=== PATIENT | male | born 1940 | race Caucasian/White ===

== ENCOUNTER 2021-12-19 15:21 | Emergency (ER) | payer MEDICARE, SELFPAY ==
[2021-12-19 15:36] VITALS: BP 183/68; PULSE 63; RESP 20; TEMP 37.7; O2SAT 99
--- NOTE | 2021-12-19 15:53 | ED.URI ---
HPI - URI/Sore Throat General Chief Complaint: Upper Respiratory Infection Stated Complaint: Sinus Infection,Cough Time Seen by Provider: 12/19/21 15:53 Source: patient, family, RN notes reviewed and old records reviewed Mode of arrival: ambulatory Limitations: no limitations History of Present Illness HPI Narrative: 81-year-old male presents to the [facility] with complaints of cough, shortness of breath and generalized fatigue and chills since Tuesday, 4 days. states they try to get in with her primary but he was refusing. Has not taken anything for symptoms. Has a significant cardiac history. Patient appears pale, tachypneic, acutely ill. reports significant generalized weakness and increased pallor that started this morning, may be yesterday. Patient has not taken his medications today. History of bypass, stents, high cholesterol, aortic aneurysm, diabetes, hypertension, kidney disease MD elicited complaint: fever (Subjective) Related Data Home Medications Medication Instructions Recorded Confirmed atorvastatin 80 mg tablet 80 mg PO DAILY 10/16/19 10/30/21 carvedilol 12.5 mg tablet 12.5 mg PO Q12H 10/16/19 10/30/21 clopidogrel 75 mg tablet 75 mg PO DAILY 10/16/19 10/30/21 nitroglycerin 0.4 mg sublingual 0.4 mg SUBLINGUAL Q5M PRN 10/16/19 10/30/21 tablet potassium chloride 10 mEq 10 meq PO DAILY 10/16/19 10/30/21 capsule,extended release furosemide 20 mg tablet 20 mg PO DAILY tablet 10/18/19 10/30/21 Allergies Allergy/AdvReac Type Severity Reaction Status Date / Time atenolol Allergy Severe Nausea Verified 12/19/21 15:31 Contrast Media Allergy Severe HEART Uncoded 12/19/21 15:31 STOPPED Review of Systems Review of Systems: All systems reviewed & are unremarkable except as noted in HPI and below Constitutional: Constitutional: Reports as per HPI, Reports chills, Reports fatigue, Reports fever(s), Denies headache(s) and Reports weakness Eyes: Eyes: Reports as per HPI and Reports eye discharge (Tearing right eye) ENT: Reports as per HPI, Denies vertigo, Denies dizziness, Denies headache(s), Reports nasal congestion and Denies sore throat Cardiovascular: Cardiovascular: Reports no additional cardiovascular complaints, Denies chest pain, Denies syncope, Denies rapid heart rate and Denies dyspnea Respiratory: Respiratory: Reports as per HPI, Denies cough, Reports dyspnea and Denies wheezing Gastrointestinal: Gastrointestinal: Reports no additional gastrointestinal complaints, Denies abdominal pain, Denies diarrhea, Denies nausea and Denies vomiting Musculoskeletal: Musculoskeletal: Reports as per HPI, Reports myalgias and Denies numbness Integumentary/Breasts: Skin/Breast: Reports system reviewed and no additional complaints, except as docu Neurologic: Reports system reviewed and no additional complaints, except as documented, Denies vertigo, Denies dizziness, Denies syncope, Denies headache(s), Denies focal weakness and Denies numbness Psychiatric: Psychiatric: Reports no additional psychiatric complaints Allergic/Immunologic: Allergic/Immunologic: Reports no additional allergic/immunologic complaints and Denies wheezing PMFSH Past Medical History Medical History (Updated 12/19/21 @ 16:32 by Mary Ann Mckay APRN) ASHD (arteriosclerotic heart disease) Essential (primary) hypertension Glaucoma Mixed hyperlipidemia Pitting edema Type 2 diabetes mellitus without complication, without long-term current use of insulin Surgical History Surgical History (Updated 12/19/21 @ 16:25 by Mary Ann Mckay APRN) H/O heart bypass surgery S/P coronary artery stent placement Family History Family History Mother Family history of dementia Father Family history of heart disease in male family member before age 55 Social History Social History Smoking packs per day: 1 Smoking cigarettes per
[2021-12-19 16:02] LABS: Glucose Point of Care 154 mg/dl (65-105)
--- NOTE | 2021-12-19 16:06 | ECG_ITS ---
Measurements Intervals [place] Rate: 58 P: 25 ID: 145 QRS: -19 QRSD: 102 T: 72 QT: 416 QTc: 410 Interpretive Statements SINUS BRADYCARDIA WITH FREQUENT SUPRAVENTRICULAR PREMATURE COMPLEXES LOW QRS VOLTAGE IN PRECORDIAL LEADS [QRS DEFLECTION < 1.0 mV IN CHEST LEADS] NONSPECIFIC INTERVENTRICULAR CONDUCTION DELAY ST ABNORMALITY ANTEROLATERAL LEADS CONSIDER ISCHEMIA ABNORMAL ECG NO PREVIOUS ECG AVAILABLE FOR COMPARISON Electronically Signed On 12-19-2021 17:09:04 CDT by Oj Malik M.D.
== END 2021-12-19 16:08 | disposition short-term general hospital (02) ==
PROVIDERS: Emergency Provider Nurse Practitioner; PCP Internal Medicine
DX: R53.1 Weakness (principal); R06.02 Shortness of breath; R94.31 Abnormal electrocardiogram [ECG] [EKG]; I10 Essential (primary) hypertension; Z87.891 Personal history of nicotine dependence; H40.9 Unspecified glaucoma; E78.2 Mixed hyperlipidemia; E11.9 Type 2 diabetes mellitus without complications; I25.10 Atherosclerotic heart disease of native coronary artery without angina pectoris; Z95.5 Presence of coronary angioplasty implant and graft
CPT/HCPCS: 82948; 93005; 99213; G0463

== ENCOUNTER 2021-12-19 16:25 | Observation (INO) | payer MEDICARE, SELFPAY ==
[2021-12-19] VITALS (7 sets, daily range): BP systolic 149–190; BP diastolic 54–68; PULSE 54–69; RESP 16–22; TEMP 36.3–36.4; O2SAT 97–100; BMI 27.7
--- NOTE | ~2021-12-19 | XR_ITS ---
EXAMINATION: XR chest 2V DATE: 12/19/2021 16:56 INDICATION: Shortness of breath. TECHNIQUE: Frontal and lateral views of the chest were obtained on 3 radiographs. COMPARISON: Chest single view 08/22/2016, chest CT 10/11/2010 FINDINGS: There is mild atelectasis in the lower lung zones. No pleural effusion or pneumothorax. The heart size is normal. Median sternotomy wires and mediastinal surgical clips are seen, likely from p rior coronary artery bypass grafting. IMPRESSION: 1. Mild atelectasis in the lower lung zones. Reviewed, dictated and finalized at location E.
--- NOTE | 2021-12-19 16:37 | ECG_ITS ---
Measurements Intervals [place] Rate: 51 P: -10 ND: 159 QRS: -25 QRSD: 110 T: 66 QT: 410 QTc: 379 Interpretive Statements SINUS BRADYCARDIA WITH OCCASIONAL SUPRAVENTRICULAR PREMATURE COMPLEXES ST ABNORMALITY ANTEROLATERAL LEADS CONSIDER ISCHEMIA NONSPECIFIC INTRAVENTRICULAR CONDUCTION DELAY ABNORMAL ECG COMPARED TO ECG 12/19/2021 16:04:38 NO SIGNIFICANT CHANGES Electronically Signed On 12-19-2021 17:10:21 CDT by Oj Malik M.D.
[2021-12-19 16:45] LABS: Basophils Percent Auto 0.4 % (0.2-1.2); Eosinophils Absolute Auto 0.2 K/mm3 (0-0.3); Eosinophils Percent Auto 2.8 % (0-4.4); Hematocrit 37.4 % (42.0-52.0); Hemoglobin 12.3 g/dL (14.0-18.0); Immature Granulocyte Absolute 0.02 K/mm3 (0.00-0.031); Immature Granulocyte Percent A 0.3 % (0-0.5); Lymphocytes Absolute Auto 0.89 K/mm3 (0.9-3.2); Mean Corpuscular HGB Conc 32.9 g/dl (32-36); Mean Corpuscular Hemoglobin 30.6 pg (26-34); Mean Platelet Volume 11.1 fl (7.4-10.4); Monocytes Absolute Auto 0.7 K/mm3 (0.1-0.6); Monocytes Percent Auto 9.6 % (2.6-8.5); Neutrophils Absolute Auto 5.1 K/mm3 (1.3-6.7); Neutrophils Percent Auto 73.9 % (45.5-73.1); Platelet Count Result 153 k/mm3 (150-375); Red Blood Count 4.02 M/mm3 (4.6-6.20); Red Cell Distribution Width 12.4 % (11.5-14.5); White Blood Count 6.9 K/mm3 (4.5-10.0)
[2021-12-19 16:56] LABS: Alanine Aminotransferase 26 U/L (4-50); Albumin Level 3.9 g/dL (3.5-5.1); Alkaline Phosphatase 88 U/L (38-126); Anion Gap 8 mmol/L (8-16); Aspartate Amino Transferase 26 U/L (17-59); Blood Urea Nitrogen 16 mg/dL (9-20); Calcium 8.8 mg/dL (8.4-10.2); Carbon Dioxide 26 mmol/L (22-30); Chloride 106 mmol/L (98-107); Estimated CRCL calculation 38 ml/min; Estimated Glomerular Filt Rate 49; Glucose 153 mg/dL (65-110); Potassium 3.6 mmol/L (3.4-5.0); Sodium 140 mmol/L (137-145)
--- NOTE | 2021-12-19 17:12 | ED.SOB ---
HPI - SOB/Dyspnea General Chief Complaint: Shortness of Breath/Dyspnea <Anita Mack PA-C - Last Filed: 12/19/21 20:28> Stated Complaint: sob <SEVERIANO Ware Last Filed: 12/19/21 20:28> Time Seen by Provider: 12/19/21 17:00 <SEVERIANO Ware Last Filed: 12/19/21 20:28> Source: patient <SEVERIANO Ware Last Filed: 12/19/21 20:28> Mode of arrival: ambulatory <SEVERIANO Ware Last Filed: 12/19/21 20:28> Limitations: no limitations <SEVERIANO Ware Last Filed: 12/19/21 20:28> History of Present Illness HPI Narrative: This is a 81-year-old male that presents to the emergency department for shortness of breath today. Reports he was seated in his chair and started to feel short of breath. Over the last couple of days he has had cold symptoms, he does still report a mild cough. He is not COVID or influenza vaccinated. Reports left lower extremity edema which is chronic for him. His yarn weight and strength tester is Dr. Roberts. Denies chest pain. <Anita Mack PA-C - Last Filed: 12/19/21 20:28> Related Data Home Medications: Home Medications Medication Instructions Recorded Confirmed atorvastatin 80 mg tablet 80 mg PO DAILY 10/16/19 12/19/21 carvedilol 12.5 mg tablet 12.5 mg PO Q12H 10/16/19 12/19/21 clopidogrel 75 mg tablet 75 mg PO DAILY 10/16/19 12/19/21 nitroglycerin 0.4 mg sublingual 0.4 mg SUBLINGUAL Q5M PRN 10/16/19 12/19/21 tablet potassium chloride 10 mEq 10 meq PO DAILY 10/16/19 12/19/21 capsule,extended release furosemide 20 mg tablet 20 mg PO DAILY tablet 10/18/19 12/19/21 <SEVERIANO Ware Last Filed: 12/19/21 20:28> Allergies/Adverse Reactions: Allergies Allergy/AdvReac Type Severity Reaction Status Date / Time atenolol Allergy Severe Nausea Verified 12/19/21 16:36 Contrast Media Allergy Severe HEART Uncoded 12/19/21 16:36 STOPPED <Anita Mack PA-C - Last Filed: 12/19/21 20:28> Review of Systems Review of Systems: CONSTITUTIONAL: Denies fever ENT: Reports congestion, sore throat CARDIOVASCULAR: Denies chest pain RESPIRATORY: Reports cough and dyspnea. <Anita Mack PA-C - Last Filed: 12/19/21 20:28> All systems reviewed & are unremarkable except as noted in HPI and below <Anita Mack PA-C - Last Filed: 12/19/21 20:28> PMFSH Past Medical History Medical History: Medical History (Updated 12/19/21 @ 20:18 by Anita Mack PA-C) ASHD (arteriosclerotic heart disease) Essential (primary) hypertension Glaucoma Mixed hyperlipidemia Pitting edema Type 2 diabetes mellitus without complication, without long-term current use of insulin <Anita Mack PA-C - Last Filed: 12/19/21 20:28> Surgical History Surgical History: Surgical History (Updated 12/19/21 @ 16:25 by Mary Ann Mckay APRN) H/O heart bypass surgery S/P coronary artery stent placement <Anita Mack PA-C - Last Filed: 12/19/21 20:28> Family History Family History: Family History Mother Family history of dementia Father Family history of heart disease in male family member before age 55 <Anita Mack PA-C - Last Filed: 12/19/21 20:28> Social History Social History: Social History Smoking packs per day: 1 Smoking cigarettes per day: 20.0 Years smoked: 15 Smoking pack-years: 15.00 Smoking status: Former smoker Alcohol intake: never Substance use: never <Anita Mack PA-C - Last Filed: 12/19/21 20:28> Exam Narrative: GENERAL: Well-appearing, well-nourished, and in no acute distress. HEAD: Normocephalic, atraumatic. EYES: EOMI. ENT: Nares clear, no rhinorrhea or epistaxis. Mucous membranes moist. Oropharynx without tonsillar hypertrophy exudate or other lesions. Bilateral TMs pearly [place] non-bulging NECK: Supple. No adenopathy or masses. CHEST: Clear to
[2021-12-19 17:44] LABS: INR 1.2; Prothrombin Time 14.4 Seconds (11.1-14.7)
[2021-12-19 17:45] LABS: Partial Thromboplastin Time 34.6 SECONDS (22.3-36.8)
[2021-12-19 18:12] LABS: Influenza A QL RT-PCR Negative (Negative); Influenza B QL RT-PCR Negative (Negative); SARS-CoV-2 RNA PCR Negative
[2021-12-19 18:23] LABS: NT Pro B Type Natriuretic Pept 364 pg/mL (5-100); Troponin I 0.041 ng/mL (0.000-0.034)
[2021-12-19] MEDS: hydrALAZINE HCL 20 MG/ML VIAL IV PUSH (18:50)
--- NOTE | 2021-12-19 19:12 | ECG_ITS ---
Measurements Intervals [place] Rate: 78 P: 4 [place]: 197 QRS: -37 QRSD: 108 T: 58 QT: 397 QTc: 453 Interpretive Statements SINUS RHYTHM WITH SINUS ARRHYTHMIA LEFT AXIS DEVIATION [QRS AXIS < -30] ST ABNORMALITY CONSIDER ANTEROLATERAL ISCHEMIA ABNORMAL ECG COMPARED TO ECG 12/19/2021 16:30:50 HEART RATE HAS INCREASED Electronically Signed On 12-20-2021 16:12:57 CDT by Oj Malik M.D.
[2021-12-19 19:30] LABS: Add Urine Microscopic? NO; Appearance Urine Clear (Clear); Bilirubin Urine Negative (Negative); Blood Urine Negative (Negative); Color Urine Yellow (Yellow); Glucose Urine UA Negative (Negative); Ketones Urine Negative (Negative); Leukocyte Esterase Ur Negative LEU/UL (Negative); Nitrate Urine Negative (Negative); Protein Urine Negative (Negative); Specific Grav Ur 1.008 (1.001-1.035); Urobilinogen Urine Negative mg/dL (<2.0)
[2021-12-19 19:48] LABS: Lipase 93 U/L (23-300)
--- NOTE | 2021-12-19 19:49 | PM.IMHP ---
H&P: HPI History of Present Illness Date/Time: 12/19/21 19:49 Chief Complaint: Shortness of breath. Narrative: This is a 81-year-old male with past medical history significant for coronary artery disease, hypertension, dyslipidemia, type 2 diabetes mellitus. Patient presented to the emergency room due to sudden onset of shortness of breath according to who is at bedside patient just recently had flu like symptoms patient also had some cough and generalized malaise, patient has been in his usual state of health up until this denies any chest pain, palpitations, syncope, near syncope, lightheadedness, nausea, vomiting ,diarrhea, abdominal pain, leg swelling, ankle swelling. Preliminary workup was significant for mild elevation of troponins, a chest x-ray was clear, creatinine was 1 point for, BNP was in the 300 range. An EKG did not show any acute changes. Patient has been admitted for further evaluation management and treatment.. Review of Systems Review of Systems: Sudden onset of shortness of breath Constitutional: Constitutional: Denies fatigue, Denies fever(s), Denies night sweats and Denies weakness Eyes: Eyes: Denies change in vision ENT: Denies dysphagia, Denies nasal congestion, Denies nasal discharge, Denies nasal obstruction and Denies odynophagia Cardiovascular: Cardiovascular: Denies pedal edema, Denies claudication, Denies leg edema, Denies lightheadedness, Denies radiating jaw, neck or arm pain, Denies palpitations, Denies dyspnea on exertion and Denies orthopnea Respiratory: Respiratory: Denies chest congestion, Reports cough, Denies excessive phlegm production, Denies pain on inspiration, Reports dyspnea, Denies snoring and Denies wheezing Gastrointestinal: Gastrointestinal: Denies abdominal pain, Denies dyspepsia, Denies heartburn, Denies nausea and Denies vomiting Genitourinary: Genitourinary: Denies dysuria Musculoskeletal: Musculoskeletal: Denies back pain, Denies arthralgias and Denies joint swelling Integumentary/Breasts: Skin/Breast: Denies rash Neurologic: Denies focal weakness and Denies Sensory deficit (Neuro) Psychiatric: Psychiatric: Reports no additional psychiatric complaints and Reports as per HPI Endocrine: Endocrine: Denies cold intolerance, Denies heat intolerance, Denies polyphagia, Denies polydipsia and Denies palpitations Hematologic/Lymphatic: Hematologic/Lymphatic: Reports no additional hematologic/lymphatic complaints and Reports as per HPI Allergic/Immunologic: Allergic/Immunologic: Reports no additional allergic/immunologic complaints and Reports as per HPI PENDING SALE TO [facility] Past Medical History Medical History (Updated 12/20/21 @ 00:00 by Praveen [place]) ASHD (arteriosclerotic heart disease) Essential (primary) hypertension Glaucoma Mixed hyperlipidemia Pitting edema Type 2 diabetes mellitus without complication, without long-term current use of insulin Surgical History Surgical History (Updated 12/19/21 @ 16:25 by Mary Ann Mckay APRN) H/O heart bypass surgery S/P coronary artery stent placement Family History Family History Mother Family history of dementia Father Family history of heart disease in male family member before age 55 Social History Social History Smoking packs per day: 2 Smoking cigarettes per day: 40.0 Years smoked: 30 Smoking pack-years: 60.00 Smoking status: Former smoker Tobacco type: cigarettes Second hand tobacco smoke exposure: No Alcohol intake: never Substance use: never Spiritual care concerns: No Meds Home Medications and Allergies Home Medications Medication Instructions Recorded Confirmed Type atorvastatin 80 mg tablet 80 mg PO DAILY 10/16/19 12/19/21 History carvedilol 12.5 mg tablet 12.5 mg PO Q12H 10/16/19 12/19/21 History clopidogrel 75 mg tablet 75 mg PO DAILY 10/16/19 12/19/21 History nitroglycerin 0
[2021-12-19] MEDS: ASPIRIN 81 MG CHEWABLE TABLET 324 MG PO (20:19)
--- NOTE | 2021-12-19 22:28 | PC.NURSE ---
This patient, Tony Menezes, was admitted to IMU Room 214-01at 2200. Patient/family oriented to hospital policies and general routines including ID bracelet, bed and alarms, visiting hours, pain management, procedures, bathroom and other care routines, personal items, smoking policy, room service/diet, and visiting hours. Information on how to activate the Rapid Response Team has been discussed. Patient/Family are encouraged to report perceived risks to care and to ask questions if they do not understand what they are told or what they should do.
[2021-12-19 23:02] LABS: Troponin I 0.049 ng/mL (0.000-0.034)
[2021-12-20] VITALS (9 sets, daily range): BP systolic 103–173; BP diastolic 66–85; PULSE 53–79; RESP 16–20; TEMP 36.4–36.9; O2SAT 97–99
[2021-12-20 01:04] LABS: Troponin I 0.053 ng/mL (0.000-0.034)
[2021-12-20 09:29] LABS: Basophils Percent Auto 0.5 % (0.2-1.2); Eosinophils Absolute Auto 0.2 K/mm3 (0-0.3); Eosinophils Percent Auto 2.7 % (0-4.4); Hematocrit 38.9 % (42.0-52.0); Immature Granulocyte Absolute 0.02 K/mm3 (0.00-0.031); Immature Granulocyte Percent A 0.3 % (0-0.5); Lymphocytes Absolute Auto 1.02 K/mm3 (0.9-3.2); Lymphocytes Percent Auto 16.5 % (18.3-44.2); Mean Corpuscular HGB Conc 33.4 g/dl (32-36); Mean Corpuscular Hemoglobin 30.7 pg (26-34); Mean Corpuscular Volume 91.7 fl (80-100); Mean Platelet Volume 10.9 fl (7.4-10.4); Monocytes Absolute Auto 0.6 K/mm3 (0.1-0.6); Monocytes Percent Auto 10.2 % (2.6-8.5); Neutrophils Absolute Auto 4.3 K/mm3 (1.3-6.7); Neutrophils Percent Auto 69.8 % (45.5-73.1); Platelet Count Result 166 k/mm3 (150-375); Red Blood Count 4.24 M/mm3 (4.6-6.20); Red Cell Distribution Width 12.7 % (11.5-14.5); White Blood Count 6.2 K/mm3 (4.5-10.0)
[2021-12-20 09:42] LABS: Anion Gap 7 mmol/L (8-16); Blood Urea Nitrogen 18 mg/dL (9-20); Calcium 8.5 mg/dL (8.4-10.2); Carbon Dioxide 23 mmol/L (22-30); Chloride 108 mmol/L (98-107); Estimated CRCL calculation 36 ml/min; Estimated Glomerular Filt Rate 49; Glucose 126 mg/dL (65-110); Potassium 3.9 mmol/L (3.4-5.0); Sodium 138 mmol/L (137-145)
[2021-12-20] MEDS: lisinopriL 20 MG TABLET PO (10:04)
[2021-12-20] MEDS: carvediloL 12.5 MG TABLET PO (10:04)
[2021-12-20] MEDS: FUROSEMIDE 20 MG TABLET PO (10:04)
[2021-12-20] MEDS: POTASSIUM CHLORIDE 10 MEQ TABLET.ER PO (10:04)
[2021-12-20] MEDS: ISOSORBIDE MONONITRATE 30 MG TAB.ER.24H PO (10:04)
[2021-12-20] MEDS: hydroCHLOROthiazide 25 MG TABLET PO (10:04)
[2021-12-20] MEDS: ATORVASTATIN 40 MG TABLET 80 MG PO (10:05)
[2021-12-20] MEDS: ENOXAPARIN 40 MG/0.4 ML SYRINGE SUB-Q (10:06)
[2021-12-20] MEDS: CLOPIDOGREL BISULFATE 75 MG TABLET PO (10:06)
--- NOTE | 2021-12-20 12:44 | PM.CNCAR ---
Assessment and Plan Assessment and plan (1) Chest pain: Qualifiers: Chest pain type: unspecified Qualified Code(s): R07.9 - Chest pain, unspecified Code(s): R07.9 - Chest pain, unspecified Status: Acute Assessment and Plan: Resolved. Albeit mild somewhat concerning for angina per patient description. Patient has extensive history placing the high risk complications having had remote CABG, intervention to prior vein graft, [place] PTCA and stent implantation on multiple occasions. I reviewed notes from his cattle dehorner from [facility] and his extensive history. We discussed with at length and my concern given his complicated and extensive cardiac history that further evaluation is warranted this hospitalization. Patient was quick to point out he would not agree to any evaluations here. I informed at a minimum he should undergo noninvasive ischemic testing or if escalation in his symptoms invasive angiography. I agreed that transfer to [facility] was very reasonable considering his complicated history and well established cardiovascular care with Dr. Roberts. He also declined transfer this episode of care to [facility]. I advised he should undergo testing here or be transferred to [facility] for further evaluation in that he did not advised he was discharged home or that he left against medical advice. Patient verbalized understanding but states he would be leaving against medical advice. I emphasized my concerns in this regard and increased risk for myocardial infarction, arrhythmia, and or . I also expressed my displeasure with significant elevation in his blood pressure and that this should be controlled further prior to discharge. Patient verbalized understanding of my concerns, appreciated my position and acknowledged the risks he was taking on his own accord and that I disagreed with him. Explained my concern with regards elevated troponin concerning for persistent ischemia although possibly related uncontrolled hypertension and underlying renal disease and myocardial strain coupled with underlying CAD. Given his extensive cardiovascular history, I stated it was not reasonable to conclude simply demand ischemia related to uncontrolled hypertension and that further evaluation for myocardial ischemia is advised. He respectively declined stating he would call his who accompanied him up and he would be going home this afternoon. I advised him to contact his cattle dehorner immediately and discussed the situation of his decision and recommendation for further workup. Continue current medical therapy. (2) Elevated troponin: Code(s): R77.8 - Other specified abnormalities of plasma proteins Status: Acute Assessment and Plan: As above. Fairly flat curve which may be consistent with type 2 infarction related to renal insufficiency, uncontrolled hypertension but cannot exclude low-grade myocardial ischemia particularly given patient's symptom complex at presentation concerning for angina. I feel further evaluation this episode of care is advised as he is at high risk but he declines and does not agree to any treatment or further evaluation at this hospital. However, he declines transfer to [facility] which is the hospital of his choosing where his physicians are located. He understands my concern in the options laid out but would not change his mind. I advised addition of aspirin 81 mg daily given the circumstances and elevated troponin. (3) CAD (coronary artery disease): Code(s): I25.10 - Atherosclerotic heart disease of [place] coronary artery without angina pectoris Status: Acute Assessment and Plan: Extensive history as noted above. Continue clopidogrel, long-acting nitrates with isosorbide mononitrate, carvedilol, atorvastatin. He was not on aspirin as an outpatient (4) Uncontrolled hypertension: Code(s): I10 - Essential (primary) hypertension Status: Acut
--- NOTE | 2021-12-20 12:47 | PC.NURSE ---
Patient stated he wants to leave against medical advice. AMA. Patient met with Dr. Loco who strongly encouraged patient to have a workup and even offered to transfer patient to [facility] and patient declined. I educated patient on the dangers of leaving AMA and patient stated his head was harder than concrete and he has made up his mind and his is on her way to pick him up. I discussed patients extensive cardiac history with him and went over possible outcomes of leaving the hospital, including . He again stated he is leaving no matter what we say.
--- NOTE | 2021-12-20 16:05 | PM.DS ---
DS: Admitting Diagnosis Discharge Date 12/20/21 Admitting Diagnosis Elevated Troponin DS: Discharge Diagnosis Discharge Diagnosis (1) Elevated troponin: Code(s): R77.8 - Other specified abnormalities of plasma proteins Status: Acute Assessment and Plan: Patient has been admitted to IMU Will trend troponins Consider cardiology consult (2) ASHD (arteriosclerotic heart disease): Code(s): I25.10 - Atherosclerotic heart disease of [place] coronary artery without angina pectoris Status: Acute Assessment and Plan: Continue home meds Continue to monitor (3) Essential (primary) hypertension: Code(s): I10 - Essential (primary) hypertension Status: Acute Assessment and Plan: Continue home meds Continue to monitor (4) Type 2 diabetes mellitus with renal manifestations: Qualifiers: 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: without marine oil terminal superintendent use Diabetes mellitus complication detail: with chronic kidney disease Chronic kidney disease stage: stage 3 (moderate) Qualified Code(s): E11.22 - Type 2 diabetes mellitus with diabetic chronic kidney disease; N18.3 - Chronic kidney disease, stage 3 (moderate) Code(s): E11.29 - Type 2 diabetes mellitus with other diabetic kidney complication Status: Acute Assessment and Plan: Holding sitagliptin Insulin sliding scale as needed (5) Mixed hyperlipidemia: Code(s): E78.2 - Mixed hyperlipidemia Status: Acute Assessment and Plan: Continue statin DS: Summary Hospital Course Hospital Course: Patient was admitted for additional workup due to elevated troponin and chest pain. Patient left against medical advice. Patient was seen and examined prior to his leaving against medical advice. Time Spent with Patient Time attestation: Total time spent providing and/or coordinating discharge services: Exam Narrative: GENERAL: NAD, cooperative HEENT: Normocephalic, atraumatic, anicteric NECK: Supple CV: Normal S1, S2, RRR, No MRG RESP: CTAB, Normal work of breathing. EXTREMITIES: Warm and well perfused, no clubbing, cyanosis, or edema. SKIN: warm, dry and intact. NEURO: CN 2-12 grossly intact. DS: Data Data Completed and Pending Labs on day of discharge: Labs from last 24 hours 12/20/21 12/20/21 12/20/21 09:20 09:20 00:31 WBC 6.2 RBC 4.24 L Hgb 13.0 L Hct 38.9 L MCV 91.7 MCH 30.7 MCHC 33.4 RDW 12.7 Plt Count 166 MPV 10.9 H Immature Gran % (Auto) 0.3 Neut % (Auto) 69.8 Lymph % (Auto) 16.5 L [place] % (Auto) 10.2 H Eos % (Auto) 2.7 Baso % (Auto) 0.5 Lymph # (Auto) 1.02 [place] # (Auto) 0.6 Eos # (Auto) 0.2 Baso # (Auto) 0.0 Abs Immat Gran (auto) 0.02 Absolute Neuts (auto) 4.3 Absolute Nucleated RBC 0.0 Nucleated RBC % 0.0 PT INR APTT D-Dimer Sodium 138 Potassium 3.9 Chloride 108 H Carbon Dioxide 23 Anion Gap 7 L BUN 18 Creatinine 1.40 H Estim Creat Clear Calc 36 Estimated GFR 49 L Glucose 126 H Calcium 8.5 Total Bilirubin AST ALT Alkaline Phosphatase Troponin I 0.053 H* NT-Pro-B Natriuret Pep Total Protein Albumin Lipase Urine Color Urine Appearance Urine pH Ur Specific [place] Urine Protein Urine Glucose (UA) Urine Ketones Ur Blood (Man) Urine Nitrate Urine Bilirubin Urine Urobilinogen Leukocyte Esterase Rfl Influenza A (RT-PCR) Influenza B (RT-PCR) SARS-CoV-2 RNA (RT-PCR) 12/19/21 12/19/21 12/19/21 22:01 19:21 17:25 WBC RBC Hgb Hct MCV MCH MCHC RDW Plt Count MPV Immature Gran % (Auto) Neut % (Auto) Lymph % (Auto) [place] % (Auto) Eos % (Auto) Baso % (Auto) Lymph # (Auto) [place] # (Auto) Eos # (Auto) Baso # (Auto) Abs Immat Gran (auto) Absolute Neuts (auto) Absolute Nucleated RBC
== END 2021-12-20 13:15 | disposition left against medical advice (07) ==
LOC: ANHED 20:19 → ANHIMU 12-20 03:28
PROVIDERS: Physician Assistant; Admitting Provider Internal Medicine; Emergency Provider Emergency Medicine; PCP Internal Medicine; Visit Provider Family Medicine
DX: R07.9 Chest pain, unspecified (principal); R77.8 Other specified abnormalities of plasma proteins; I25.10 Atherosclerotic heart disease of native coronary artery without angina pectoris; I12.9 Hypertensive chronic kidney disease with stage 1 through stage 4 chronic kidney disease, or unspecified chronic kidney disease; I25.2 Old myocardial infarction; N18.30 Chronic kidney disease, stage 3 unspecified; E11.22 Type 2 diabetes mellitus with diabetic chronic kidney disease; E78.2 Mixed hyperlipidemia; R60.9 Edema, unspecified; R06.02 Shortness of breath; Z20.822 Contact with and (suspected) exposure to COVID-19; Z87.891 Personal history of nicotine dependence; Z79.02 Long term (current) use of antithrombotics/antiplatelets; Z79.899 Other long term (current) drug therapy; Z95.1 Presence of aortocoronary bypass graft; Z95.5 Presence of coronary angioplasty implant and graft; Z28.21 Immunization not carried out because of patient refusal
CPT/HCPCS: 36415; 71046; 80048; 80053; 81003; 82948; 83690; 83880; 84484; 85025; 85380; 85610; 85730; 87502; 93005; 96372; 96374; 99285; A9270; C9803; G0378; J0360; J1650; U0003; U0005

== ENCOUNTER 2023-01-02 09:39 | Inpatient (IN) | payer MEDICARE, SELFPAY ==
[2023-01-02] VITALS (17 sets, daily range): BP systolic 74–207; BP diastolic 55–114; PULSE 50–83; RESP 16–18; TEMP 36.2–36.9; O2SAT 97–100; BMI 23.0
--- NOTE | ~2023-01-02 | MR_ITS ---
MRI of the brain Clinical History: Lethargy Technique: Axial and sagittal T1-weighted images were acquired. These were followed by axial T2-weigh jarvis, diffusion weighted, gradient, and FLAIR images. Findings: There is no acute infarct, intracranial hemorrhage, or mass lesion. There are mild chronic white matter changes in the periventricular white matter. Ventricles and subarachnoid spaces are unremarkable. Orbits are unremarkable. Paranasal sinuses and m astoid air cells are clear. Major intracranial flow voids appear intact. Sagittal midline structures are intact. IMPRESSION: Minimal chronic microvascular ischemic change, otherwise unremarkable exam. Reviewed, dictated and finalized at location M.
--- NOTE | ~2023-01-02 | XR_ITS ---
EXAMINATION: XR chest 2V DATE: 01/02/2023 10:09 INDICATION: Weakness TECHNIQUE: AP and lateral views of the chest are obtained. COMPARISON: 12/19/2021 FINDINGS: There is mild atelectasis of the lung bases. No pleural effusion or pneumothorax. The cardi omediastinal silhouette is normal. There is moderate thoracic spondylosis. Median sternotomy wires an d mediastinal surgical clips are seen, likely from prior coronary artery bypass grafting. A coronary arteries stent is noted. IMPRESSION: 1. Mild atelectasis of the lung bases. Reviewed, dictated and finalized at location A.
--- NOTE | ~2023-01-02 | XR_ITS ---
EXAMINATION: XR chest 1V portable 01/03/2023 17:47 INDICATION: Leukocytosis PROCEDURE: AP portable chest COMPARISON: Comparison to multiple prior studies sequentially, with oldest reviewed study dated 06/19. FINDINGS: The lungs are clear. The cardiomediastinal silhouette is within normal limits. There are no pleural effusions. There is no pneumothorax suspected. There is a coronary artery stent. Status p ost median sternotomy for CABG.Left basilar atelectasis. IMPRESSION: 1: Left basilar atelectasis. Reviewed, dictated and finalized at location A.
--- NOTE | ~2023-01-02 | US_ITS ---
EXAMINATION: US carotid duplex BI DATE: 01/03/2023 11:30 INDICATION: Lethargy. Cerebral atherosclerosis. TECHNIQUE: Grayscale, color Doppler, and pulsed Doppler images of the cervical carotid arteries were obtained. The degree of vessel stenosis is placed in one of the following categories: normal, <50%, 5 0-69%, >=70% but less than near-occlusion, near-occlusion, or total occlusion. Note that percent sten osis relative to normal distal artery lumen diameter is indirectly measured from velocity measurement s as described by Ko, et al. Radiology 2003; 229:340-346. COMPARISON: None. FINDINGS: RIGHT: The right common carotid artery (CCA) peak systolic velocity (PSV) is 92 cm/s. The right internal car otid artery (ICA) PSV is 73 cm/s. The right ICA end-diastolic velocity (EDV) is 18 cm/s. The right IC A/CCA PSV ratio is 0.8. Grayscale and color Doppler images yield an estimate of <50% diameter reducti on from plaque in the ICA. The external carotid artery (ECA) PSV is 119 cm/s. There is antegrade flow in the right vertebral artery. LEFT: The left CCA PSV is 74 cm/s. The left ICA PSV is 114 cm/s. The left ICA EDV is 24 cm/s. The left ICA/ CCA PSV ratio is 1.5. Grayscale and color Doppler images yield an estimate of <50% diameter reduction from plaque in the ICA. The ECA PSV is 117 cm/s. There is antegrade flow in the left vertebral arter y. IMPRESSION: 1. <50% stenosis in the right internal carotid artery. 2. <50% stenosis in the left internal carotid artery. 3. Cardiac arrhythmia is present. Correlate with EKG. Reviewed, dictated and finalized at location A.
--- NOTE | ~2023-01-02 | CT_ITS ---
EXAMINATION: CT brain wo con INDICATION: Headache COMPARISON: 07/05/2016 TECHNIQUE: Standard unenhanced head CT. The dose-length product (DLP) was 605.33 mGy-cm. The mA was a djusted according to patient size. Iterative reconstruction technique was employed. FINDINGS: There is no acute intraparenchymal hemorrhage. No evidence of mass lesion. No evidence of a cute infarction. There is mild periventricular and subcortical hypodensity probably related to small vessel ischemic disease. There is mild prominence of the sulci and ventricles related to cerebral atr ophy. Intracranial calcified cerebral atherosclerosis is noted. There are no extra-axial collections. There is no mass effect or midline shift. Changes in the globes are likely from ocular lens surgery. There is mild mucosal thickening of the paranasal sinuses. IMPRESSION: 1. No acute intracranial abnormality. 2. Age related findings. Reviewed, dictated and finalized at location A.
--- NOTE | 2023-01-02 09:44 | ECG_ITS ---
Measurements Intervals [place] Rate: 76 P: -21 [place]: 170 QRS: -57 QRSD: 110 T: 46 QT: 408 QTc: 460 Interpretive Statements SINUS RHYTHM PATTERN CONSISTENT WITH PULMONARY DISEASE LEFT ANTERIOR FASCICULAR BLOCK [QRS AXIS <= -45, QR IN I, RS IN II] PROBABLE SEPTAL MYOCARDIAL INFARCTION , PROBABLY OLD [35 ms Q WAVE IN V1/V2] COMPARED TO ECG 12/19/2021 19:18:31 LEFT ANTERIOR FASCICULAR BLOCK NOW PRESENT Electronically Signed On 01-02-2023 19:17:47 CDT by Marisabel Cortez M.D.
[2023-01-02 09:54] LABS: Eosinophils Percent Auto 0.2 % (0-4.4); Hematocrit 43.8 % (42.0-52.0); Hemoglobin 14.7 g/dL (14.0-18.0); Immature Granulocyte Absolute 0.02 K/mm3 (0.00-0.031); Immature Granulocyte Percent A 0.4 % (0-0.5); Lymphocytes Absolute Auto 0.66 K/mm3 (0.9-3.2); Lymphocytes Percent Auto 13.5 % (18.3-44.2); Mean Corpuscular HGB Conc 33.6 g/dl (32-36); Mean Corpuscular Hemoglobin 29.7 pg (26-34); Mean Corpuscular Volume 88.5 fl (80-100); Monocytes Absolute Auto 0.7 K/mm3 (0.1-0.6); Monocytes Percent Auto 13.5 % (2.6-8.5); Neutrophils Absolute Auto 3.6 K/mm3 (1.3-6.7); Neutrophils Percent Auto 72.4 % (45.5-73.1); Platelet Count Result 147 k/mm3 (150-375); Red Blood Count 4.95 M/mm3 (4.6-6.20); Red Cell Distribution Width 13.2 % (11.5-14.5); White Blood Count 4.9 K/mm3 (4.5-10.0)
[2023-01-02 10:06] LABS: Lactic Acid Reflex 1.4 mmol/L (0.7-2.0)
[2023-01-02 10:08] LABS: Alanine Aminotransferase 35 U/L (6-50); Alkaline Phosphatase 95 U/L (38-126); Anion Gap 7 mmol/L (8-16); Aspartate Amino Transferase 45 U/L (17-59); Blood Urea Nitrogen 17 mg/dL (9-20); Calcium 8.5 mg/dL (8.4-10.2); Carbon Dioxide 24 mmol/L (22-30); Chloride 106 mmol/L (98-107); Estimated CRCL calculation 48 ml/min; Estimated Glomerular Filt Rate 58; Glucose 142 mg/dL (65-110); Potassium 4.1 mmol/L (3.4-5.0); Sodium 137 mmol/L (137-145)
[2023-01-02] MEDS: SODIUM CHLORIDE 0.9% IV 1,000 ML 999 ML IV CONT ×2 (10:17→14:03)
[2023-01-02 11:26] LABS: Appearance Urine Clear (Clear); Bacteria Urine None Seen /hpf; Bilirubin Urine Negative (Negative); Blood Urine Negative (Negative); Color Urine Yellow (Yellow); Glucose Urine UA 1+ mg/dL (Negative); Ketones Urine 1+ mg/dL (Negative); Leukocyte Esterase Ur Negative LEU/UL (Negative); Need Manual Microscopic Reviewed; Nitrate Urine Negative (Negative); Non Pathogenic Casts 0-2; Protein Urine 1+ mg/dL (Negative); RBC Urine 0-2 /hpf (0-2); Specific Grav Ur 1.023 (1.001-1.035); Squamous Epithelial Cell Urine None seen /hpf (Few); WBC Urine 0-5 /hpf; pH Urine 5.5 (5.0-9.0)
[2023-01-02 11:27] LABS: Add Urine Microscopic? YES
[2023-01-02] MEDS: hydroCHLOROthiazide 25 MG TABLET PO (12:11)
[2023-01-02] MEDS: carvediloL 12.5 MG TABLET PO (12:11)
[2023-01-02] MEDS: lisinopriL 20 MG TABLET PO (12:11)
[2023-01-02] MEDS: ISOSORBIDE MONONITRATE 30 MG TAB.ER.24H PO (12:11)
--- NOTE | 2023-01-02 15:27 | ED.WEAKNESS ---
HPI - Weakness General Chief complaint: Weakness Stated complaint: weakness, fall Time Seen by Provider: 01/02/23 09:40 History of Present Illness HPI Narrative: Patient is an 82-year-old male who presents ER with weakness and fall. Occurred twice this morning. No reports that he injured himself or struck his head. Patient is demented and cannot provide history. It is reported however that patient was diagnosed with COVID 2 weeks ago. He lives at home. He has had poor appetite and oral intake. Daughter concerned and wanted him evaluated. Related Data Home Medications Medication Instructions Recorded Confirmed atorvastatin 80 mg tablet 80 mg PO DAILY 10/16/19 01/02/23 carvedilol 12.5 mg tablet 12.5 mg PO Q12H 10/16/19 01/02/23 clopidogrel 75 mg tablet 75 mg PO DAILY 10/16/19 01/02/23 nitroglycerin 0.4 mg sublingual 0.4 mg sublingual Q5M PRN Chest 10/16/19 01/02/23 tablet (Nitrostat) Pain potassium chloride 10 mEq 10 meq PO DAILY 10/16/19 01/02/23 capsule,extended release furosemide 20 mg tablet 20 mg PO BID 10/18/19 01/02/23 isosorbide mononitrate 30 mg 30 mg PO DAILY 12/19/21 01/02/23 tablet,extended release 24 hr lisinopril 20 1 tablet PO DAILY 12/19/21 01/02/23 mg-hydrochlorothiazide 25 mg tablet sitagliptin phosphate 100 mg 50 mg PO DAILY 01/02/23 01/02/23 tablet (Januvia) Allergies Allergy/AdvReac Type Severity Reaction Status Date / Time atenolol Allergy Severe Nausea Verified 01/02/23 17:28 Iodinated Contrast Media Allergy Severe heart Verified 01/02/23 17:28 stopped Review of Systems Review of Systems: ROS unobtainable: Yes unobtainable due to mental status [facility] Past Medical History Medical History (Updated 01/02/23 @ 18:37 by Philip Jamison MD) Aortic aneurysm ASHD (arteriosclerotic heart disease) Dementia Essential (primary) hypertension Glaucoma Gout Mixed hyperlipidemia Pitting edema Tinnitus Type 2 diabetes mellitus without complication, without long-term current use of insulin Weakness Surgical History Surgical History (Updated 01/02/23 @ 17:26 by Aimee Harvey NP) H/O heart bypass surgery 6 1996 History of appendectomy S/P coronary artery stent placement (2) 2016 (1) 2013 (2) 2012 (3) 2010 (1) 2009 ( 2) 1996 Family History Family History Mother Family history of dementia Father Family history of heart disease in male family member before age 55 Hyperlipidemia Son Acute myocardial infarction Social History Social History (Updated 01/02/23 @ 17:29 by Aimee Harvey NP) Social History: He lives with his . He had 2 children and his one son . 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 HEAD: Normocephalic, atraumatic. ENT: Nares clear, no rhinorrhea or epistaxis. Mucous membranes moist. NECK: Supple. CHEST: Clear to auscultation. No respiratory distress. HEART: Regular rate and rhythm. Normal peripheral pulses. ABDOMEN: Soft, nontender, nondistended. EXTREMITIES: Normal range of motion. No edema. SKIN: Warm, dry, no rash. NEURO: Alert and oriented x2-3. PSYCH: Normal mood and affect. Course Course Emergency Course: Patient with critically elevated blood pressure. He is provided his home medications and blood pressure normalized. However he was then having dizziness when going from sitting to standing and difficulty ambulating. Orthostatic vital signs were positive and his blood pressure dropped into the 70s. He received a second liter of IV
--- NOTE | 2023-01-02 15:50 | PM.IMHP ---
H&P: HPI History of Present Illness Date/Time: 01/02/23 15:50 Chief Complaint: Fall Narrative: This is an 82-year-old male patient who resides with his . Both he and his had suffered from COVID over the last week and a half. The patient has been very weak and has been falling. He has had a poor oral intake. He denies any shortness of breath. The daughter is at the bedside answering questions as the patient's sugar hard of hearing. The daughter stated that the patient fell ground level because he was weak. She feels that her mother cannot take care of him at home at this point because he is too weak to care for self. He has had poor oral intake. He denies wheezing sense of smell or taste. He denies any focal weakness. He has been very fatigued. He denies any fever chills. He denies any cough or shortness of breath. The patient is just sleep being most of the time. Initially his highest blood pressure here was 201/114. The patient was given his routine home medications and his blood pressure dropped to 74/58. Patient was given IV fluids and now is blood pressure is 108/65. The patient was given IV fluids in the emergency room x3. The patient is being admitted to observation status on the date of service of 01/02/2023. Review of Systems Review of Systems: All systems reviewed & are unremarkable except as noted in HPI and below Constitutional: Constitutional: Reports as per HPI and Reports no additional constitutional complaints Eyes: Eyes: Reports as per HPI and Reports no additional eye complaints ENT: Reports system reviewed and no additional complaints, except as documented and Reports Normal hearing present Cardiovascular: Cardiovascular: Reports no additional cardiovascular complaints Respiratory: Respiratory: Reports no additional respiratory complaints and Reports no additional respiratory complaints Gastrointestinal: Gastrointestinal: Reports as per HPI and Reports no additional gastrointestinal complaints Musculoskeletal: Musculoskeletal: Reports no additional musculoskeletal complaints Integumentary/Breasts: Skin/Breast: Reports system reviewed and no additional complaints, except as docu and Reports as per HPI Neurologic: Reports system reviewed and no additional complaints, except as documented, Reports as per HPI and Reports Normal hearing present Psychiatric: Psychiatric: Reports no additional psychiatric complaints and Reports as per HPI Endocrine: Endocrine: Reports no additional endocrine complaints Hematologic/Lymphatic: Hematologic/Lymphatic: Reports no additional hematologic/lymphatic complaints Allergic/Immunologic: Allergic/Immunologic: Reports no additional allergic/immunologic complaints PMFSH Past Medical History Medical History (Updated 01/02/23 @ 18:13 by Aimee Harvey NP) Aortic aneurysm ASHD (arteriosclerotic heart disease) Dementia Essential (primary) hypertension Glaucoma Gout Mixed hyperlipidemia Pitting edema Tinnitus Type 2 diabetes mellitus without complication, without long-term current use of insulin Weakness Surgical History Surgical History (Updated 01/02/23 @ 17:26 by Aimee Harvey NP) H/O heart bypass surgery 1996 History of appendectomy S/P coronary artery stent placement (2) 2015 (1) 2012 (2) 2011 (3) 2010 (1) 2009 ( 2) 1996 Family History Family History Mother Family history of dementia Father Family history of heart disease in male family member before age 55 Hyperlipidemia Son Acute myocardial infarction Social History Social History (Updated 01/02/23 @ 17:29 by Aimee Harvey NP) Social History: He lives with his . He had 2 children and his one son . 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
--- NOTE | 2023-01-02 17:15 | ADMGEN ---
This patient, Tony Menezes, was admitted to 3 Med Surg Room 330-01. Patient/family oriented to hospital policies and general routines including ID bracelet, bed and alarms, visiting hours, pain management, procedures, bathroom and other care routines, personal items, smoking policy, room service/diet, and visiting hours. Information on how to activate the Rapid Response Team has been discussed. Patient/Family are encouraged to report perceived risks to care and to ask questions if they do not understand what they are told or what they should do.
[2023-01-02] MEDS: SODIUM CHLORIDE 0.9% IV 1,000 ML 125 ML IV CONT (18:12)
[2023-01-02 18:25] LABS: Troponin I 0.131 ng/mL (0.000-0.034)
[2023-01-02 20:46] LABS: Alveolar/Arterial O2 Gradient 39.4 mmHg; Base Excess ABG -4.7 mEq/l (+/-2.0); Fractional Inspired Oxygen 21 %; HCO3 ABG 18.1 mEq/l (22.0-26.0); Oxygen Content ABG 17.1 %vol (16.0-22.0); Oxygen Saturation ABG 96.1 % (95.0-100.0); PCO2 ABG 27.3 mmHg (35.0-45.0); PO2 ABG 77.6 mmHg (80.0-100.0); Total Hemoglobin 12.9 g/dL (12.0-18.0); pH ABG 7.439 (7.350-7.450)
[2023-01-02 20:48] LABS: Device ROOM AIR; Modified Allen's Test Pass; Site Drawn RIGHT RADIAL
[2023-01-02] MEDS: HYOSCYAMINE SULFATE 0.5 MG/ML AMPUL 0.25 MG IM (21:53)
[2023-01-02] MEDS: LIDOCAINE HCL 2% GEL UROJET 10 ML PKG MUCOUS MEM (21:54)
[2023-01-02 21:57] LABS: Glucose Point of Care 153 mg/dl (65-105)
[2023-01-03] VITALS (9 sets, daily range): BP systolic 102–186; BP diastolic 50–66; PULSE 61–87; RESP 16–20; TEMP 35.7–38.5; O2SAT 95–98; BMI 23.0
[2023-01-03 00:38] LABS: Troponin I 0.198 ng/mL (0.000-0.034)
[2023-01-03 06:47] LABS: Eosinophils Percent Auto 0.2 % (0-4.4); Hematocrit 36.5 % (42.0-52.0); Hemoglobin 11.9 g/dL (14.0-18.0); Immature Granulocyte Absolute 0.02 K/mm3 (0.00-0.031); Immature Granulocyte Percent A 0.4 % (0-0.5); Immature Platelet Fraction Pct 7.8 % (0.9-11.2); Lymphocytes Absolute Auto 0.48 K/mm3 (0.9-3.2); Mean Corpuscular HGB Conc 32.6 g/dl (32-36); Mean Corpuscular Volume 91.9 fl (80-100); Mean Platelet Volume 11.6 fl (7.4-10.4); Monocytes Absolute Auto 0.5 K/mm3 (0.1-0.6); Neutrophils Absolute Auto 3.8 K/mm3 (1.3-6.7); Neutrophils Percent Auto 79.4 % (45.5-73.1); Platelet Count Result 125 k/mm3 (150-375); Red Blood Count 3.97 M/mm3 (4.6-6.20); Red Cell Distribution Width 13.2 % (11.5-14.5); White Blood Count 4.8 K/mm3 (4.5-10.0)
[2023-01-03 06:56] LABS: Alanine Aminotransferase 28 U/L (6-50); Albumin Level 3.1 g/dL (3.5-5.1); Alkaline Phosphatase 67 U/L (38-126); Anion Gap 3 mmol/L (8-16); Aspartate Amino Transferase 30 U/L (17-59); Bilirubin,Total 0.9 mg/dL (0.2-1.3); Blood Urea Nitrogen 17 mg/dL (9-20); Calcium 7.7 mg/dL (8.4-10.2); Carbon Dioxide 23 mmol/L (22-30); Chloride 111 mmol/L (98-107); Estimated CRCL calculation 44 ml/min; Estimated Glomerular Filt Rate 58; Glucose 111 mg/dL (65-110); Magnesium 2.1 mg/dL (1.6-2.3); Potassium 3.8 mmol/L (3.4-5.0); Sodium 137 mmol/L (137-145)
[2023-01-03 07:34] LABS: Glucose Point of Care 104 mg/dl (65-105)
[2023-01-03 08:14] LABS: Hemoglobin A1C 6.5 % (<5.7)
[2023-01-03] MEDS: SODIUM CHLORIDE 0.9% IV 1,000 ML 75 ML IV CONT (08:14)
[2023-01-03 08:23] LABS: Troponin I 0.286 ng/mL (0.000-0.034)
--- NOTE | 2023-01-03 10:00 | PCPTNOTE ---
Attempted PT evaluation this date however pt was with OT. Will continue to attempt.
--- NOTE | 2023-01-03 10:02 | PM.CNCAR ---
Assessment and Plan Assessment and plan (1) CAD (coronary artery disease): Code(s): I25.10 - Atherosclerotic heart disease of [place] coronary artery without angina pectoris Status: Acute Assessment and Plan: Extensive history of coronary artery disease as detailed in the HPI. He denies any anginal symptoms. His CAD seems to be stable at this point. Continue DAPT with ASA, Plavix. Continue statin. [facility] (2) Elevated troponin: Code(s): R77.8 - Other specified abnormalities of plasma proteins Status: Acute Assessment and Plan: His troponin levels were checked on admission and were found to be elevated. Troponin trend 0.131, 0.150, 0.198, 0.268, 0.358, 0.401. He denies chest pain currently or any recent chest pain. This troponin trend likely represents demand ischemia/type II SD. He does have extensive underlying coronary disease and was quite hypertensive on admission. EKG does not have any ischemic STTW changes. At this time since he is free of any anginal symptoms there is no clinical indication for further ischemic work up. Furthermore, due to his multiple past coronary interventions and bypass operation, he would be a high risk candidate for coronary angiogram/PCI at this hospital. Echo has already been ordered by the hospitalist, will review and leave further recommendations when results are available. He [facility] (3) Weakness: Code(s): R53.1 - Weakness Status: Acute Assessment and Plan: Secondary to recent COVID infection and malnutrition/dehydration. (4) Uncontrolled hypertension: Code(s): I10 - Essential (primary) hypertension Status: Acute Assessment and Plan: Blood pressure History of Present Illness History of Present Illness Consult date/time: 01/03/23 10:02 Requesting physician: Alice Martínez MD Consult reason: Other (Coronary artery disease ) Reason For Visit: Dehydration, Orthostasis Narrative: Tony Menezes is an 82-year-old male with an extensive cardiac history including multiple myocardial infarctions status post CABG x6 (BOBBY to LAD, sequential SVG to RCA and PDA, SVG to marginal branch and SVG to diagonal branch in 1996 at [facility]), and multiple stents in 2010, 2011, 2012, 2015. This is a patient who presents to the hospital because of weakness and a fall. The patient and his recently had COVID and the patient had not had anything to eat or drink for about 4 days prior to his presentation to the hospital. He had also been very lethargic and fatigued during his illness with COVID. According to the patient's , he fell yesterday at home. She did not witness this fall but heard him hit a piece of furniture from the other room. The patient himself does not remember falling. the patient denies any chest pain currently and any recent history of chest pain. He also denies any shortness of breath, palpitations, swelling, orthopnea. Currently, he is sitting comfortably in the chair and does not have any complaints. Review of Systems Review of Systems: All systems reviewed & are unremarkable except as noted in HPI and below PMFSH Past Medical History Medical History Aortic aneurysm ASHD (arteriosclerotic heart disease) Dementia Essential (primary) hypertension Glaucoma Gout Mixed hyperlipidemia Pitting edema Tinnitus Type 2 diabetes mellitus without complication, without long-term current use of insulin Weakness Surgical History Surgical History H/O heart bypass surgery 1996 History of appendectomy S/P coronary artery stent placement (2) 2015 (1) 2012 (2) 2011 (3) 2010 (1) 2009 ( 2) 1996 Family History Fam
--- NOTE | 2023-01-03 11:03 | PCPTNOTE ---
Attempted PT evaluation, pt off the unit for testing. Will follow.
[2023-01-03 11:51] LABS: Glucose Point of Care 137 mg/dl (65-105)
[2023-01-03] MEDS: POTASSIUM CHLORIDE 10 MEQ TABLET.ER PO (11:53)
[2023-01-03] MEDS: ISOSORBIDE MONONITRATE 30 MG TAB.ER.24H PO (11:53)
[2023-01-03] MEDS: ATORVASTATIN 40 MG TABLET 80 MG PO (11:53)
[2023-01-03] MEDS: hydroCHLOROthiazide 25 MG TABLET PO (11:53)
[2023-01-03] MEDS: FUROSEMIDE 20 MG TABLET PO ×2 (11:53→16:55)
[2023-01-03] MEDS: CLOPIDOGREL BISULFATE 75 MG TABLET PO (11:53)
[2023-01-03] MEDS: carvediloL 12.5 MG TABLET PO ×2 (11:54→21:51)
[2023-01-03] MEDS: lisinopriL 20 MG TABLET PO (11:54)
[2023-01-03 12:39] LABS: Troponin I 0.401 ng/mL (0.000-0.034)
--- NOTE | 2023-01-03 12:46 | ECG_ITS ---
Measurements Intervals [place] Rate: 67 P: DC: 0 QRS: -46 QRSD: 101 T: 28 QT: 399 QTc: 422 Interpretive Statements SINUS RHYTHM WITH FREQUENT PREMATURE ATRIAL CONTRACTIONS LOW QRS VOLTAGE IN PRECORDIAL LEADS [QRS DEFLECTION < 1.0 mV IN CHEST LEADS] LEFT ANTERIOR FASCICULAR BLOCK [QRS AXIS <= -45, QR IN I, RS IN II] NONSPECIFIC T-WAVE ABNORMALITY ABNORMAL ECG COMPARED TO ECG 01/02/2023 09:46:23 ATRIAL ECTOPIC ACTIVITY IS NOW SEEN Electronically Signed On 01-04-2023 6:57:58 CDT by Ovi Petty M.D.
--- NOTE | 2023-01-03 14:28 | PCCCNOTE ---
On 01/03/23, the student, [Linn Jarquin ], provided care and completed [facility] documentation on this patient. I have reviewed the student's documentation and agree with the findings.
--- NOTE | 2023-01-03 16:03 | PM.IMPN ---
Progress Note: A&P Assessment and Plan (1) Orthostatic hypotension: Code(s): I95.1 - Orthostatic hypotension Status: Acute (2) COVID: Code(s): U07.1 - COVID-19 Status: Acute (3) Weakness: Code(s): R53.1 - Weakness Status: Acute Assessment and Plan: The patient had COVID over a week and half to 2 weeks ago. The patient has had a poor oral intake without loss of taste or smell. The patient has been sleeping quite often. He denies any shortness breath or any fever chills. He denies any chest pain. The patient has been sleeping frequently and just has no energy and has been falling. His head CT was negative with no acute intracranial abnormality. PT and OT evaluation with greatly be appreciated MRI is negative Weakness and encephalopathy likely secondary to COVID (4) Cognitive impairment: Code(s): R41.89 - Other symptoms and signs involving cognitive functions and awareness Status: Acute (5) Uncontrolled hypertension: Code(s): I10 - Essential (primary) hypertension Status: Acute (6) CAD (coronary artery disease): Code(s): I25.10 - Atherosclerotic heart disease of [place] coronary artery without angina pectoris Status: Acute Assessment and Plan: The patient has an extensive heart history with a bypass and multiple stents. Continue with atorvastatin Continue with Coreg Continue with Plavix Continue with Lasix Continue with isosorbide Continue with lisinopril Continue with nitroglycerin Cardiology consulted continue medical theraphy (7) Mixed hyperlipidemia: Code(s): E78.2 - Mixed hyperlipidemia Status: Acute Assessment and Plan: Continue with atorvastatin (8) Essential (primary) hypertension: Code(s): I10 - Essential (primary) hypertension Status: Acute Assessment and Plan: Continue with Lasix Continue with hydrochlorothiazide Continue with lisinopril He is also on isosorbide He is also on Coreg (9) Type 2 diabetes mellitus with renal manifestations: 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: without half-way use Diabetes mellitus complication detail: with chronic kidney disease Chronic kidney disease stage: stage 3 (moderate) Qualified Code(s): E11.22 - Type 2 diabetes mellitus with diabetic chronic kidney disease; N18.3 - Chronic kidney disease, stage 3 (moderate) Code(s): E11.29 - Type 2 diabetes mellitus with other diabetic kidney complication Status: Acute Assessment and Plan: Accu-Cheks AC and HS with sliding scale insulin check A1c Continue with Lidia (10) Dementia: Code(s): F03.90 - Unspecified dementia, unspecified severity, without behavioral disturbance, psychotic disturbance, mood disturbance, and anxiety Status: Acute Assessment and Plan: The patient had been on Namenda at 1 time but is no longer on Namenda. (11) Aortic aneurysm: Code(s): I71.9 - Aortic aneurysm of unspecified site, without rupture Status: Acute Assessment and Plan: According to the daughter this is being monitored on an outpatient level. Subjective Date/time seen: 01/03/23 16:03 82-year-old male patient who resides with his .? Both he and his had suffered from COVID over the last week and a half.? The patient has been very weak and has been falling.? Pt is more confused and instable when he walks, MRI shows nil acute, discussion with at bedside. recent covid infection Review of Systems Review of Systems: Weak confused and instable Objective Data Vital Signs Vital Signs: Vital Signs - 24 hr 01/02/23 17:07 01/02/23 22:57 01/02/23 22:00 Temperature 36.9 C 36.9 C 36.2 C L Pulse Rate 50 L 70 Respiratory Rate 18 16 Blood Pressure 151/55 H 131/64 Pulse Oximetry 98 99 Oxygen Delivery 01/02/23 20:00 01/03/23 06:00 01/03/23 11:54 Temperature 35.7 C L Pulse Rate 70 61 75 Respiratory Rate
[2023-01-03] MEDS: ACETAMINOPHEN 325 MG TABLET 650 MG PO (16:54)
[2023-01-03 19:05] LABS: CRP 17.7 mg/dL (<1.0)
--- NOTE | 2023-01-03 19:05 | ECG_ITS ---
Measurements Intervals [place] Rate: 87 P: 49 DC: 216 QRS: -43 QRSD: 93 T: 101 QT: 390 QTc: 472 Interpretive Statements SINUS RHYTHM WITH FIRST DEGREE AV BLOCK LEFT ANTERIOR SUPERIOR HEMIBLOCK NONSPECIFIC ST AND T-WAVE ABNORMALITY COMPARED TO ECG 01/03/2023 13:08:58 NO SIGNIFICANT DIFFERENCE Electronically Signed On 01-04-2023 7:07:24 CDT by Ovi Petty M.D.
[2023-01-03 19:14] LABS: Glucose Point of Care 271 mg/dl (65-105)
[2023-01-03 19:43] LABS: Troponin I 0.431 ng/mL (0.000-0.034)
[2023-01-03 20:59] LABS: Troponin I 0.413 ng/mL (0.000-0.034)
[2023-01-03] MEDS: SODIUM CHLORIDE 0.9% IV 250 ML 999 ML IV CONT (21:58)
[2023-01-04] VITALS (9 sets, daily range): BP systolic 138–158; BP diastolic 55–72; PULSE 72–106; RESP 14–18; TEMP 36.1–38.2; O2SAT 94–95
--- NOTE | 2023-01-04 | ECHO_ITS ---
Patient Info Name: Tony Menezes Age: 82 years : 1940 Gender: Male Ht: 69 in Wt: 155 lbs BSA: 1.85 m2 HR: 77 bpm BP: 102 / 50 mmHg Heart Rhythm: Sinus Rhythm Technical Quality: Fair Exam Date: 01/04/2023 8:19 AM Exam Location: Echo Lab Patient Status: Inpatient Admit Date: 01/02/2023 Staff Ordering Physician: Aimee Harvey NP Fur Dresser: Roselia Jose RDCS Attending Provider: Shawn Patton MD Referring Physician: Wes EVANS; Exam Type: CA echo doppler color flow Study Info Indications - lethargy Complete two-dimensional, color flow and Doppler transthoracic echocardiogram is performed. Summary 1. Technically difficult study with limited views. 2. Left ventricular chamber dimension is normal. 3. Left ventricular systolic function is normal, estimated at 50-55%. 4. There is mildly increased left ventricular wall thickness. 5. The left ventricular diastolic function is grade I diastolic dysfunction. 6. Right ventricular systolic function is normal. 7. There is trace mitral valve regurgitation. 8. There is trace tricuspid valve regurgitation. 9. The aortic root size at the sinus of Valsalva is dilated. Left Ventricle Left ventricular chamber dimension is normal. Left ventricular systolic function is normal, estimated at 50-55%. There is mildly increased left ventricular wall thickness. The left ventricular diastolic function is grade I diastolic dysfunction. Right Ventricle Right ventricular chamber dimension is normal. Right ventricular systolic function is normal. Left Atria Left atrial chamber dimension is normal. Right Atria Right atrial chamber dimension is normal. Atrial Septum Intact interatrial septum visualized by color flow imaging. Aortic Valve The aortic valve is probable trileaflet. There is no aortic valve stenosis. There is no aortic valve regurgitation. Pulmonic Valve The pulmonic valve is not well visualized. Mitral Valve There is trace mitral valve regurgitation. The mitral valve annulus is mildly calcified. Tricuspid Valve There is trace tricuspid valve regurgitation. Pericardium/Pleural The pericardium appears epicardial fat pad. Aorta The aortic root size at the sinus of Valsalva is dilated. Left Ventricular Outflow Tract Name Value Normal LVOT 2D LVOT Diameter 2.0 cm LVOT Doppler LVOT Peak Gradient 4 mmHg LVOT Mean Gradient 2 mmHg LVOT VTI 17 cm LVOT VTI/AV VTI Ratio 0.8 LVOT Stroke Volume 51 ml LVOT CO 3.7 l/min LVOT CI 2.0 l/min/m2 Pulmonic Valve Name Value Normal RVOT Doppler RVOT Peak Gradient 3 mmHg PV D
[2023-01-04] MEDS: SODIUM CHLORIDE 0.9% IV 1,000 ML 75 ML IV CONT ×2 (00:02→20:00)
[2023-01-04 07:38] LABS: Glucose Point of Care 108 mg/dl (65-105)
--- NOTE | 2023-01-04 09:20 | PM.PNCARD ---
Progress Note: A&P Assessment and Plan (1) CAD (coronary artery disease): Code(s): I25.10 - Atherosclerotic heart disease of [place] coronary artery without angina pectoris Status: Acute Assessment and Plan: Extensive history of coronary artery disease as detailed in the HPI. He denies any anginal symptoms. His CAD seems to be stable at this point. Continue DAPT with ASA, Plavix. Continue statin. [facility] (2) Elevated troponin: Code(s): R77.8 - Other specified abnormalities of plasma proteins Status: Acute Assessment and Plan: His troponin levels were checked on admission and were found to be elevated. Troponin trend 0.131, 0.150, 0.198, 0.268, 0.358, 0.401. He denies chest pain currently or any recent chest pain. This troponin trend likely represents demand ischemia/type II [place]. Echo shows normal LVSF. [facility] (3) Weakness: Code(s): R53.1 - Weakness Status: Acute Assessment and Plan: Secondary to recent COVID infection and malnutrition/dehydration. (4) Uncontrolled hypertension: Code(s): I10 - Essential (primary) hypertension Status: Acute Assessment and Plan: Blood pressure elevated on admission, improved. Subjective Date/time seen: 01/04/23 09:20 Interval history: He is feeling better this morning, more alert. Denies any chest pain or shortness of breath. Review of Systems Review of Systems: All systems reviewed & are unremarkable except as noted in HPI and below Exam Const: General: comfortable, no acute distress, alert and awake Orientation/consciousness: patient oriented x3 HENMT: Head: normal to inspection Eyes: General: appearance normal, both eyes and all related structures Pupils: Equal, round and reactive pupils present Neck: Neck: normal visual inspection, supple and no JVD Carotids: normal carotid upstroke Resp: Effort & Inspection: normal respiratory effort Auscultation: clear to auscultation bilaterally Cardio: Rate: regular rate Rhythm: regular rhythm Heart sounds: S1 normal heart sound present, S2 normal heart sound present and no murmurs GI: Auscultation: normal bowel sounds Skin: General skin exam: normal color Neuro: General: patient oriented x3 Cranial nerves: Yes Equal, round and reactive pupils present Extrem: General: normal to inspection Other: No edema Psych: Appearance: grossly normal Mental Status: mental status grossly normal Objective Data Vital Signs Vital Signs: Vital Signs - 24 hr 01/03/23 11:54 01/03/23 12:00 01/03/23 12:00 Temperature 36.8 C Pulse Rate 75 61 77 Respiratory Rate 16 Blood Pressure 186/66 H Pulse Oximetry 98 Oxygen Delivery 01/03/23 14:00 01/03/23 14:01 01/03/23 16:00 Temperature 38.5 C H Pulse Rate 67 67 Respiratory Rate 16 Blood Pressure 129/65 118/63 Pulse Oximetry 96 Oxygen Delivery 01/03/23 20:33 01/03/23 20:00 01/03/23 20:00 Temperature 36.4 C Pulse Rate 87 87 Respiratory Rate 20 Blood Pressure 102/50 L Pulse Oximetry 95 Oxygen Delivery Room Air 01/04/23 00:00 01/04/23 04:00 01/04/23 06:00 Temperature 36.6 C Pulse Rate 74 77 72 Respiratory Rate 16 Blood Pressure 158/72 H Pulse Oximetry 94 Oxygen Delivery Intake/Output Intake/Output: Intake & Output 01/01/23 01/02/23 01/03/23 01/04/23 23:59 23:59 23:59 23:59 Intake Total 1999 3209 Output Total 75 1225 650 Balance 1925 1984 - Meds/Results Medications: Active Medications Generic Name Dose Route Start Last Admin Trade Name Freq PRN Reason Stop Dose Admin Acetaminophen 650 mg 01/02/23 15:39 01/03/23 16:54 Acetaminophen 325 Mg Tablet PO 650 mg Q4H PRN Administration Mild Pain (1-3) or Fever Atorvastatin Calcium 80 mg 01/03/23 09
[2023-01-04] MEDS: ATORVASTATIN 40 MG TABLET 80 MG PO (10:10)
[2023-01-04] MEDS: FUROSEMIDE 20 MG TABLET PO ×2 (10:11→17:12)
[2023-01-04] MEDS: carvediloL 12.5 MG TABLET PO ×2 (10:11→20:03)
[2023-01-04] MEDS: ISOSORBIDE MONONITRATE 30 MG TAB.ER.24H PO (10:11)
[2023-01-04] MEDS: lisinopriL 20 MG TABLET PO (10:12)
[2023-01-04] MEDS: POTASSIUM CHLORIDE 10 MEQ TABLET.ER PO (10:12)
[2023-01-04] MEDS: CLOPIDOGREL BISULFATE 75 MG TABLET PO (10:12)
[2023-01-04 11:43] LABS: Glucose Point of Care 146 mg/dl (65-105)
--- NOTE | 2023-01-04 13:53 | PM.IMPN ---
Progress Note: A&P Assessment and Plan (1) Orthostatic hypotension: Code(s): I95.1 - Orthostatic hypotension Status: Acute Assessment and Plan: continue to monitor orthostatics PT/ OT for weakness and ambulation (2) COVID: Code(s): U07.1 - COVID-19 Status: Acute Assessment and Plan: post covid (3) Weakness: Code(s): R53.1 - Weakness Status: Acute Assessment and Plan: The patient had COVID over a week and half to 2 weeks ago. The patient has had a poor oral intake without loss of taste or smell. The patient has been sleeping quite often. He denies any shortness breath or any fever chills. He denies any chest pain. The patient has been sleeping frequently and just has no energy and has been falling. His head CT was negative with no acute intracranial abnormality. PT and OT evaluation with greatly be appreciated MRI is negative Weakness and encephalopathy likely secondary to COVID delirium panel ordered to rule out othe causes (4) Aortic aneurysm: Code(s): I71.9 - Aortic aneurysm of unspecified site, without rupture Status: Acute Assessment and Plan: According to the daughter this is being monitored on an outpatient level. (5) Dementia: Code(s): F03.90 - Unspecified dementia, unspecified severity, without behavioral disturbance, psychotic disturbance, mood disturbance, and anxiety Status: Acute Assessment and Plan: The patient had been on Namenda at 1 time but is no longer on Namenda. Delirium panel ordered (6) Cognitive impairment: Code(s): R41.89 - Other symptoms and signs involving cognitive functions and awareness Status: Acute Assessment and Plan: Delirium panel ordered not wanting to see neurology Thinks his confusion is most likely due to post covid infection (7) Uncontrolled hypertension: Code(s): I10 - Essential (primary) hypertension Status: Acute Assessment and Plan: improved (8) CAD (coronary artery disease): Code(s): I25.10 - Atherosclerotic heart disease of [place] coronary artery without angina pectoris Status: Acute Assessment and Plan: The patient has an extensive heart history with a bypass and multiple stents. Continue with atorvastatin Continue with Coreg Continue with Plavix Continue with Lasix Continue with isosorbide Continue with lisinopril Continue with nitroglycerin Cardiology consulted continue medical therapy echo - Left ventricular systolic function is normal, estimated at 50-55%. 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: Qualifiers: Diabetes mellitus rn assessment insulin use: without rn assessment use Diabetes mellitus complication detail: with chronic kidney disease Chronic kidney disease stage: stage 3 (moderate) Qualified Code(s): E11.22 - Type 2 diabetes mellitus with diabetic chronic kidney disease; N18.3 - Chronic kidney disease, stage 3 (moderate) Code(s): E11.29 - Type 2 diabetes mellitus with other diabetic kidney complication Status: Acute Assessment and Plan: Accu-Cheks AC and HS with sliding scale insulin check A1c Continue with Januvia Subjective Date/time seen: 01/04/23 13:53 82-year-old male patient who resides with his .? Both he and his had suffered from COVID over the last week and a half.? The patient has been very weak and has been falling.? Pt is more confused and instable when he walks, MRI shows nil acute, discussion with at bedside
--- NOTE | 2023-01-04 16:49 | PC.NURSE ---
Pt's mentation changing frequently throughout shift. When pt alert enough to stand, pt would arise out of bed, and this RN/SNT unable to catch pt to get lying/sitting/standing. When RN/SNT would lie pt down again and let him rest for 30 mins, mentation changes noted again.
[2023-01-04 17:03] LABS: Glucose Point of Care 115 mg/dl (65-105)
[2023-01-04 21:42] LABS: Glucose Point of Care 171 mg/dl (65-105)
[2023-01-05] VITALS (8 sets, daily range): BP systolic 113–155; BP diastolic 46–75; PULSE 56–80; RESP 16–18; TEMP 35.6–36.6; O2SAT 96–97
[2023-01-05 07:34] LABS: Hematocrit 36.9 % (42.0-52.0); Hemoglobin 12.3 g/dL (14.0-18.0); Mean Corpuscular HGB Conc 33.3 g/dl (32-36); Mean Corpuscular Hemoglobin 29.7 pg (26-34); Mean Corpuscular Volume 89.1 fl (80-100); Mean Platelet Volume 10.8 fl (7.4-10.4); Platelet Count Result 165 k/mm3 (150-375); Red Blood Count 4.14 M/mm3 (4.6-6.20); Red Cell Distribution Width 13.2 % (11.5-14.5); White Blood Count 4.1 K/mm3 (4.5-10.0)
[2023-01-05 07:42] LABS: Glucose Point of Care 94 mg/dl (65-105)
[2023-01-05 07:45] LABS: Anion Gap 4 mmol/L (8-16); Blood Urea Nitrogen 17 mg/dL (9-20); Calcium 7.7 mg/dL (8.4-10.2); Carbon Dioxide 25 mmol/L (22-30); Chloride 109 mmol/L (98-107); Estimated CRCL calculation 44 ml/min; Estimated Glomerular Filt Rate 58; Glucose 96 mg/dL (65-110); Potassium 3.5 mmol/L (3.4-5.0); Sodium 138 mmol/L (137-145)
[2023-01-05] MEDS: POTASSIUM CHLORIDE 10 MEQ TABLET.ER PO (08:30)
[2023-01-05] MEDS: carvediloL 12.5 MG TABLET PO ×2 (08:30→20:05)
[2023-01-05] MEDS: ISOSORBIDE MONONITRATE 30 MG TAB.ER.24H PO (08:30)
[2023-01-05] MEDS: FUROSEMIDE 20 MG TABLET PO ×2 (08:31→16:49)
[2023-01-05] MEDS: CLOPIDOGREL BISULFATE 75 MG TABLET PO (08:31)
[2023-01-05] MEDS: lisinopriL 20 MG TABLET PO (08:31)
[2023-01-05] MEDS: ATORVASTATIN 40 MG TABLET 80 MG PO (08:31)
[2023-01-05 10:33] LABS: Folic Acid 5.4 ng/mL (2.76->20)
[2023-01-05 11:46] LABS: Glucose Point of Care 187 mg/dl (65-105)
--- NOTE | 2023-01-05 13:19 | PM.IMPN ---
Progress Note: A&P Assessment and Plan (1) Orthostatic hypotension: Code(s): I95.1 - Orthostatic hypotension Status: Acute Assessment and Plan: continue to monitor orthostatics PT/ OT for weakness and ambulation (2) COVID: Code(s): U07.1 - COVID-19 Status: Acute Assessment and Plan: post covid (3) Weakness: Code(s): R53.1 - Weakness Status: Acute Assessment and Plan: The patient had COVID over a week and half to 2 weeks ago. The patient has had a poor oral intake without loss of taste or smell. The patient has been sleeping quite often. He denies any shortness breath or any fever chills. He denies any chest pain. The patient has been sleeping frequently and just has no energy and has been falling. His head CT was negative with no acute intracranial abnormality. PT and OT evaluation with greatly be appreciated MRI is negative Weakness and encephalopathy likely secondary to COVID delirium panel ordered to rule out othe causes (4) Aortic aneurysm: Code(s): I71.9 - Aortic aneurysm of unspecified site, without rupture Status: Acute Assessment and Plan: According to the daughter this is being monitored on an outpatient level. (5) Dementia: Code(s): F03.90 - Unspecified dementia, unspecified severity, without behavioral disturbance, psychotic disturbance, mood disturbance, and anxiety Status: Acute Assessment and Plan: The patient had been on Namenda at 1 time but is no longer on Namenda. Delirium panel ordered (6) Cognitive impairment: Code(s): R41.89 - Other symptoms and signs involving cognitive functions and awareness Status: Acute Assessment and Plan: Delirium panel ordered not wanting to see neurology Thinks his confusion is most likely due to post covid infection (7) Uncontrolled hypertension: Code(s): I10 - Essential (primary) hypertension Status: Acute Assessment and Plan: improved (8) CAD (coronary artery disease): Code(s): I25.10 - Atherosclerotic heart disease of [place] coronary artery without angina pectoris Status: Acute Assessment and Plan: The patient has an extensive heart history with a bypass and multiple stents. Continue with atorvastatin Continue with Coreg Continue with Plavix Continue with Lasix Continue with isosorbide Continue with lisinopril Continue with nitroglycerin Cardiology consulted continue medical therapy echo - Left ventricular systolic function is normal, estimated at 50-55%. 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: without terminal computer operator use Diabetes mellitus complication detail: with chronic kidney disease Chronic kidney disease stage: stage 3 (moderate) Qualified Code(s): E11.22 - Type 2 diabetes mellitus with diabetic chronic kidney disease; N18.3 - Chronic kidney disease, stage 3 (moderate) Code(s): E11.29 - Type 2 diabetes mellitus with other diabetic kidney complication Status: Acute Assessment and Plan: Accu-Cheks AC and HS with sliding scale insulin check A1c Continue with Januvia Subjective Date/time seen: 01/05/23 13:19 no new complaints no issues with swallowing Exam Const: General: cooperative, comfortable, no acute distress, well developed, alert, awake, Physically active, confusion, ill appearing, tired appearing, average body habitus and well nourished Nutritional Appearance: average body
[2023-01-05] MEDS: SODIUM CHLORIDE 0.9% IV 1,000 ML 75 ML IV CONT (14:04)
--- NOTE | 2023-01-05 14:37 | PCOTNOTE ---
Patient declined to participate in services this P.M. Patient verbalized, I'm so tired, not today .
--- NOTE | 2023-01-05 15:02 | PCPTNOTE ---
Attempted to see patient for PT, however patient refused due to wanting to rest at this time.
[2023-01-05 16:45] LABS: Glucose Point of Care 156 mg/dl (65-105)
[2023-01-05 20:12] LABS: Glucose Point of Care 111 mg/dl (65-105)
[2023-01-06] VITALS (7 sets, daily range): BP systolic 130–162; BP diastolic 56–83; PULSE 60–68; RESP 16–20; TEMP 35.7–36.6; O2SAT 97–100
[2023-01-06] MEDS: SODIUM CHLORIDE 0.9% IV 1,000 ML 75 ML IV CONT (06:20)
[2023-01-06 08:10] LABS: Glucose Point of Care 93 mg/dl (65-105)
[2023-01-06] MEDS: ATORVASTATIN 40 MG TABLET 80 MG PO (08:14)
[2023-01-06] MEDS: FUROSEMIDE 20 MG TABLET PO (08:14)
[2023-01-06] MEDS: CLOPIDOGREL BISULFATE 75 MG TABLET PO (08:14)
[2023-01-06] MEDS: ISOSORBIDE MONONITRATE 30 MG TAB.ER.24H PO (08:14)
[2023-01-06] MEDS: POTASSIUM CHLORIDE 10 MEQ TABLET.ER PO (08:14)
[2023-01-06] MEDS: carvediloL 12.5 MG TABLET PO (08:14)
[2023-01-06] MEDS: lisinopriL 20 MG TABLET PO (08:14)
--- NOTE | 2023-01-06 10:56 | PM.DS ---
DS: Admitting Diagnosis Discharge Date January 06, 2023 Admitting Diagnosis COVID, orthostasis DS: Discharge Diagnosis Discharge Diagnosis (1) Orthostatic hypotension: Code(s): I95.1 - Orthostatic hypotension Status: Acute Assessment and Plan: continue to monitor orthostatics PT/ OT for weakness and ambulation (2) COVID: Code(s): U07.1 - COVID-19 Status: Acute Assessment and Plan: post covid (3) Weakness: Code(s): R53.1 - Weakness Status: Acute Assessment and Plan: The patient had COVID over a week and half to 2 weeks ago. The patient has had a poor oral intake without loss of taste or smell. The patient has been sleeping quite often. He denies any shortness breath or any fever chills. He denies any chest pain. The patient has been sleeping frequently and just has no energy and has been falling. His head CT was negative with no acute intracranial abnormality. PT and OT evaluation with greatly be appreciated MRI is negative Weakness and encephalopathy likely secondary to COVID delirium panel ordered to rule out othe causes (4) Aortic aneurysm: Code(s): I71.9 - Aortic aneurysm of unspecified site, without rupture Status: Acute Assessment and Plan: According to the daughter this is being monitored on an outpatient level. (5) Dementia: Code(s): F03.90 - Unspecified dementia, unspecified severity, without behavioral disturbance, psychotic disturbance, mood disturbance, and anxiety Status: Acute Assessment and Plan: The patient had been on Namenda at 1 time but is no longer on Namenda. Delirium panel ordered (6) Cognitive impairment: Code(s): R41.89 - Other symptoms and signs involving cognitive functions and awareness Status: Acute Assessment and Plan: Delirium panel ordered not wanting to see neurology Thinks his confusion is most likely due to post covid infection (7) Uncontrolled hypertension: Code(s): I10 - Essential (primary) hypertension Status: Acute Assessment and Plan: improved (8) CAD (coronary artery disease): Code(s): I25.10 - Atherosclerotic heart disease of [place] coronary artery without angina pectoris Status: Acute Assessment and Plan: The patient has an extensive heart history with a bypass and multiple stents. Continue with atorvastatin Continue with Coreg Continue with Plavix Continue with Lasix Continue with isosorbide Continue with lisinopril Continue with nitroglycerin Cardiology consulted continue medical therapy echo - Left ventricular systolic function is normal, estimated at 50-55%. 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: without watermelon harvesting supervisor use Diabetes mellitus complication detail: with chronic kidney disease Chronic kidney disease stage: stage 3 (moderate) Qualified Code(s): E11.22 - Type 2 diabetes mellitus with diabetic chronic kidney disease; N18.3 - Chronic kidney disease, stage 3 (moderate) Code(s): E11.29 - Type 2 diabetes mellitus with other diabetic kidney complication Status: Acute Assessment and Plan: Accu-Cheks AC and HS with sliding scale insulin check A1c Continue with Januvia DS: Summary Hospital Course Hospital Course: Admitted for COVID, did exceptionally well conservative therapy. He can be discharged. No oxygen is going to be needed. Time Spent with Patient Time attestation: Total time
--- NOTE | 2023-01-06 11:18 | PCNFU ---
Nutrition Follow-Up Complete: Severe malnutrition related to chronic loss of appetite, covid as evidenced by weight loss -17%/8 months; intakes <75% needs >1 month; NFPE findings of muscle wasting and fat loss. Goal:Improved PO intake at least 50% meals and supplements Maintain weight during admission Pt current nutrition is Heart healthy. Ensure clear and Ensure compact BID, Ensure Enlive TID with meals Nutrition recommendation: continue with current plan of care Last recorded weight is 70.7 kg. Bowel Motility: +BM 01/06 Labs Reviewed: hgb:12.3, HCT:36.9, GFR:58 Meds Noted: lasix, HCTZ Skin: WNL Additional Notes: Pt continues on a heart healthy diet, intake remains poor. Noted multiple supplements in place. Continue to encourage po intake of meals and supplements. Monitoring intakes, weights, labs, supplement tolerance, plan of care Follow up in 3 days
[2023-01-06 11:46] LABS: Glucose Point of Care 107 mg/dl (65-105)
--- NOTE | 2023-01-06 13:35 | PCOTNOTE ---
Attempted to see Patient this afternoon. Patient laying down and his present. Patient refused to participate in services and would not perform any activities. Patient's attempted to talk to him and he stated, 'I want to rest, I need sleep, leave me alone .
[2023-01-06 13:54] LABS: EDCOVIDSCREEN Negative (Negative)
--- NOTE | 2023-01-07 14:26 | PCCCNOTE ---
Received call from Kirti at [facility] this morning to inform that pt. did not stay at facility more than a few hours before deciding to go home with family. Discharged home.
== END 2023-01-06 16:45 | DRG 281 ==
LOC: ANHED 11:37 → ANH3MEDSUR 16:14
PROVIDERS: Family Medicine; Nurse Practitioner; Admitting Provider Internal Medicine; Emergency Provider Emergency Medicine; PCP Internal Medicine; Visit Provider Chiropractor
DX: I95.1 Orthostatic hypotension (principal); I21.A1 Myocardial infarction type 2; E44.0 Moderate protein-calorie malnutrition; G93.49 Other encephalopathy; U09.9 Post COVID-19 condition, unspecified; Z20.822 Contact with and (suspected) exposure to COVID-19; I71.9 Aortic aneurysm of unspecified site, without rupture; F03.90 Unspecified dementia, unspecified severity, without behavioral disturbance, psychotic disturbance, mood disturbance, and anxiety; E11.22 Type 2 diabetes mellitus with diabetic chronic kidney disease; N18.30 Chronic kidney disease, stage 3 unspecified; E86.0 Dehydration; E78.2 Mixed hyperlipidemia; R41.89 Other symptoms and signs involving cognitive functions and awareness; I25.10 Atherosclerotic heart disease of native coronary artery without angina pectoris; I12.9 Hypertensive chronic kidney disease with stage 1 through stage 4 chronic kidney disease, or unspecified chronic kidney disease; T17.908A Unspecified foreign body in respiratory tract, part unspecified causing other injury, initial encounter; H40.9 Unspecified glaucoma; Z95.5 Presence of coronary angioplasty implant and graft; Z95.1 Presence of aortocoronary bypass graft; Z90.49 Acquired absence of other specified parts of digestive tract; Z87.891 Personal history of nicotine dependence; Z68.23 Body mass index [BMI] 23.0-23.9, adult; I25.2 Old myocardial infarction
CPT/HCPCS: 36415; 36600; 70450; 70551; 71045; 71046; 80048; 80053; 81001; 82607; 82746; 82805; 82948; 83036; 83605; 83735; 84443; 84484; 85025; 85027; 85055; 86140; 87040; 87426; 93005; 93306; 93880; 96360; 96361; 96372; 96374; 97161; 97165; 97530; 99285; A9270; C9803; G0378; J0131; J0456; J0696; J1980; J7030; J7050

== ENCOUNTER 2023-05-10 00:16 | Emergency (ER) | payer MEDICARE, SELFPAY ==
[2023-05-10] VITALS (8 sets, daily range): BP systolic 148–180; BP diastolic 52–77; PULSE 46–55; RESP 13–20; TEMP 36.1; O2SAT 96–100
--- NOTE | ~2023-05-10 | XR_ITS ---
EXAMINATION: XR chest 2V DATE: 05/10/2023 01:25 INDICATION: Chest pain. TECHNIQUE: Frontal and lateral views of the chest were obtained. COMPARISON: Chest single view 01/03/2023 FINDINGS: There are airspace opacities in the lower lung zones. Calcified left lung nodules and calci fied left hilar lymph nodes are consistent with old granulomatous disease. No pleural effusion or pne umothorax. Cardiomegaly is noted. Median sternotomy wires and mediastinal surgical clips are seen, li agnieszka from prior coronary artery bypass grafting. There are gallstones in the gallbladder. IMPRESSION: 1. Airspace opacities in the lower lung zones, consistent with atelectasis versus pneumonia. 2. Cardiomegaly. Reviewed, dictated and finalized at location A. IMPRESSION: 1. Airspace opacities in the lower lung zones, consistent with atelectasis vers us pneumonia. 2. Cardiomegaly.
--- NOTE | 2023-05-10 00:26 | ECG_ITS ---
Measurements Intervals [place] Rate: 52 P: [place]: 0 QRS: -27 QRSD: 96 T: 149 QT: 475 QTc: 442 Interpretive Statements SINUS RHYTHM WITH FIRST DEGREE AV BLOCK WITH PACS PROBABLE SEPTAL MYOCARDIAL INFARCTION , OF INDETERMINATE AGE [35 ms Q WAVE IN V1/V2] MODERATE T-WAVE ABNORMALITY, CONSIDER LATERAL ISCHEMIA [-0.1+ mV T WAVE IN I/aVL/V5/V6] COMPARED TO ECG 01/03/2023 19:51:36 SINUS BRADYCARDIA NOW PRESENT Electronically Signed On 05-10-2023 11:21:09 CDT by Marielos Rowe M.D.
[2023-05-10 00:48] LABS: Basophils Percent Auto 0.6 % (0.2-1.2); Eosinophils Absolute Auto 0.1 K/mm3 (0-0.3); Eosinophils Percent Auto 3.5 % (0-4.4); Hemoglobin 12.5 g/dL (14.0-18.0); Lymphocytes Absolute Auto 0.95 K/mm3 (0.9-3.2); Lymphocytes Percent Auto 27.9 % (18.3-44.2); Mean Corpuscular HGB Conc 32.9 g/dl (32-36); Mean Corpuscular Volume 91.1 fl (80-100); Mean Platelet Volume 12.1 fl (7.4-10.4); Monocytes Absolute Auto 0.3 K/mm3 (0.1-0.6); Monocytes Percent Auto 8.5 % (2.6-8.5); Neutrophils Percent Auto 59.5 % (45.5-73.1); Platelet Count Result 143 k/mm3 (150-375); Red Blood Count 4.17 M/mm3 (4.6-6.20); Red Cell Distribution Width 13.4 % (11.5-14.5); White Blood Count 3.4 K/mm3 (4.5-10.0)
[2023-05-10 00:59] LABS: Alanine Aminotransferase 37 U/L (6-50); Albumin Level 3.5 g/dL (3.5-5.1); Alkaline Phosphatase 98 U/L (38-126); Anion Gap 1 mmol/L (8-16); Aspartate Amino Transferase 37 U/L (17-59); Bilirubin,Total 0.3 mg/dL (0.2-1.3); Blood Urea Nitrogen 18 mg/dL (9-20); Calcium 8.6 mg/dL (8.4-10.2); Carbon Dioxide 25 mmol/L (22-30); Chloride 109 mmol/L (98-107); Estimated CRCL calculation 37 ml/min; Estimated Glomerular Filt Rate 49; Glucose 131 mg/dL (65-110); Lipase 257 U/L (23-300); Potassium 3.4 mmol/L (3.4-5.0); Sodium 135 mmol/L (137-145)
[2023-05-10 01:02] LABS: INR 1.1; Prothrombin Time 14.8 Seconds (11.1-14.7)
[2023-05-10 01:03] LABS: Partial Thromboplastin Time 30.6 SECONDS (22.3-36.8)
[2023-05-10 01:10] LABS: Troponin I 0.045 ng/mL (0.000-0.034)
--- NOTE | 2023-05-10 02:17 | ED.GENADULT ---
HPI - General Adult General Chief complaint: Chest Pain Stated complaint: chest pain Time Seen by Provider: 05/10/23 01:01 History of Present Illness HPI narrative: This is an 82-year-old male presenting ED with a chief complaint of chest discomfort. Patient says that he was watching TV last night when he developed some blurriness in his right eye. He is unsure of the exact time. No other neurologic deficits. No field vision loss. no eye pain. He then went to bed and said he felt bad. he states it was not actual chest pain but the bad feeling was located around his chest. His noticed that he was very shaky. Patient has significant cardiac history. All of his cardiac symptoms resolved by time he arrived emergency department. Related Data Home Medications Medication Instructions Recorded Confirmed atorvastatin 80 mg tablet 80 mg PO DAILY 10/16/19 04/13/23 carvedilol 12.5 mg tablet 12.5 mg PO Q12H 10/16/19 04/13/23 clopidogrel 75 mg tablet 75 mg PO DAILY 10/16/19 04/13/23 nitroglycerin 0.4 mg sublingual 0.4 mg sublingual Q5M PRN Chest 10/16/19 04/13/23 tablet (Nitrostat) Pain potassium chloride 10 mEq 10 meq PO DAILY 10/16/19 04/13/23 capsule,extended release furosemide 20 mg tablet 20 mg PO BID 10/18/19 04/13/23 isosorbide mononitrate 30 mg 30 mg PO DAILY 12/19/21 04/13/23 tablet,extended release 24 hr lisinopril 20 1 tablet PO DAILY 12/19/21 04/13/23 mg-hydrochlorothiazide 25 mg tablet sitagliptin phosphate 100 mg 50 mg PO DAILY 01/02/23 04/13/23 tablet (Januvia) Allergies Allergy/AdvReac Type Severity Reaction Status Date / Time atenolol Allergy Severe Nausea Verified 04/13/23 13:36 Iodinated Contrast Media Allergy Severe heart Verified 04/13/23 13:36 stopped PMFSH Past Medical History Medical History Aortic aneurysm ASHD (arteriosclerotic heart disease) Dementia Essential (primary) hypertension Glaucoma Gout Mixed hyperlipidemia Pitting edema Tinnitus Type 2 diabetes mellitus without complication, without long-term current use of insulin Weakness Surgical History Surgical History H/O heart bypass surgery 6 1996 History of appendectomy S/P coronary artery stent placement (2) 2015 (1) 2012 (2) 2011 (3) 2010 (1) 2009 ( 2) 1996 Family History Family History Mother Family history of dementia Father Family history of heart disease in male family member before age 55 Hyperlipidemia Son Acute myocardial infarction Social History Social History Social History: He lives with his . He had 2 children and his one son . 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 Smoking packs per day: 2 Smoking cigarettes per day: 40.0 Years smoked: 30 Smoking pack-years: 60.00 Smoking status: Former smoker Tobacco type: cigarettes Second hand tobacco smoke exposure: No Alcohol intake: never Substance use: never Substance use type: does not use Lack of Transportation: No Lack of Food: Never True Current Housing: I Have Housing Concerned About Future Housing: No Difficulty Paying Gas/Electric Bills: No Difficulty Paying for Meds: No Currently Unemployed: No Education: High School Diploma/GED Difficulty w/ Childcare or Family Care: No Spiritual care concerns: No Exam Narrative: APPEARANCE: No apparent distress. Head: atraumatic. EYES: EOMI, Pupils pleural NOSE: Atraumatic NECK: Trachea midline RESPIRATORY: No increased rate of breathing Clear to auscultation CARDIOVASCULAR: RRR, no peripheral edema ABDOMINAL: Non-distended MUSCULOSKELETAl: No obvious deformities NEURO: Alert. Cranial nerves 2-12 grossly intact. Sensation light touch, motor function cerebellar function intact for 4 extremities.
[2023-05-10] MEDS: ASPIRIN 81 MG CHEWABLE TABLET 324 MG PO (03:12)
[2023-05-10 05:01] LABS: Troponin I 0.046 ng/mL (0.000-0.034)
[2023-05-10 07:13] LABS: Troponin I 0.051 ng/mL (0.000-0.034)
== END 2023-05-10 08:30 | disposition home or self-care (01) ==
PROVIDERS: Emergency Provider Emergency Medicine; PCP Nurse Practitioner
DX: R07.89 Other chest pain (principal); H53.8 Other visual disturbances; R77.8 Other specified abnormalities of plasma proteins; F03.90 Unspecified dementia, unspecified severity, without behavioral disturbance, psychotic disturbance, mood disturbance, and anxiety; I25.10 Atherosclerotic heart disease of native coronary artery without angina pectoris; E11.39 Type 2 diabetes mellitus with other diabetic ophthalmic complication; H42 Glaucoma in diseases classified elsewhere; E78.2 Mixed hyperlipidemia; M10.9 Gout, unspecified; Z95.1 Presence of aortocoronary bypass graft; Z95.5 Presence of coronary angioplasty implant and graft; Z87.891 Personal history of nicotine dependence; Z79.84 Long term (current) use of oral hypoglycemic drugs; R94.31 Abnormal electrocardiogram [ECG] [EKG]
CPT/HCPCS: 36415; 71046; 80053; 83690; 84484; 85025; 85610; 85730; 93005; 99284; A9270

== ENCOUNTER 2023-05-27 08:29 | Emergency (ER) | payer MEDICARE, SELFPAY ==
[2023-05-27 08:35] VITALS: BP 193/97; PULSE 56; RESP 19; TEMP 36.4; O2SAT 99
[2023-05-27 08:40] VITALS: RESP 16
--- NOTE | 2023-05-27 09:07 | ECG_ITS ---
Measurements Intervals [place] Rate: 52 P: [place]: 0 QRS: -29 QRSD: 106 T: 128 QT: 464 QTc: 432 Interpretive Statements SINUS BRADYCARDIA FREQUENT ATRIAL PREMATURE COMPLEXES LOW QRS VOLTAGE IN PRECORDIAL LEADS CANNOT RULE OUT SEPTAL INFARCT, AGE INDETERMINATE ST-T WAVE ABNORMALITY IN LAT/HIGH LAT LEADS- CONSIDER ISCHEMIA BASELINE ARTIFACT- I, AVR, AVL, AVF, V6 ABNORMAL ECG COMPARED TO ECG 05/10/2023 00:32:07 NO SIGNIFICANT CHANGES Electronically Signed On 05-27-2023 9:42:30 CDT by Fernando Canales D.O.
[2023-05-27 09:20] LABS: Basophils Percent Auto 0.8 % (0.2-1.2); Eosinophils Absolute Auto 0.2 K/mm3 (0-0.3); Eosinophils Percent Auto 5.7 % (0-4.4); Hematocrit 38.9 % (42.0-52.0); Lymphocytes Absolute Auto 1.16 K/mm3 (0.9-3.2); Lymphocytes Percent Auto 31.6 % (18.3-44.2); Mean Corpuscular HGB Conc 33.4 g/dl (32-36); Mean Corpuscular Hemoglobin 30.4 pg (26-34); Mean Corpuscular Volume 90.9 fl (80-100); Monocytes Absolute Auto 0.4 K/mm3 (0.1-0.6); Monocytes Percent Auto 10.9 % (2.6-8.5); Neutrophils Absolute Auto 1.9 K/mm3 (1.3-6.7); Platelet Count Result 189 k/mm3 (150-375); Red Blood Count 4.28 M/mm3 (4.6-6.20); Red Cell Distribution Width 13.5 % (11.5-14.5); White Blood Count 3.7 K/mm3 (4.5-10.0)
[2023-05-27 09:31] VITALS: BP 184/79; PULSE 52; RESP 14; O2SAT 98
--- NOTE | 2023-05-27 09:32 | ED.RECABL ---
HPI - Recheck/Abnormal Lab/Rx General Chief Complaint: Recheck/Abnormal Lab/Rx Stated Complaint: elevated BP Time Seen by Provider: 05/27/23 08:39 Source: patient and RN notes reviewed Mode of arrival: ambulatory Limitations: no limitations History of Present Illness HPI narrative: This is an 82 year old male with history of CAD, stents, hypertension who presents for evaluation of elevated blood pressure. His states his blood pressure was 180/70. Patient took amlodipine at 4 am but he has not taken any of her his other antihypertensives. He is scared because his blood pressure is elevated. He denies headache, dizziness, chest pain, shortness of breath or any symptoms. He is schedule for outpatient stress test in August for routine check up with his edger tailer. Related Data Home Medications Medication Instructions Recorded Confirmed atorvastatin 80 mg tablet 80 mg PO DAILY 10/16/19 05/27/23 carvedilol 12.5 mg tablet 12.5 mg PO Q12H 10/16/19 05/27/23 clopidogrel 75 mg tablet 75 mg PO DAILY 10/16/19 05/27/23 nitroglycerin 0.4 mg sublingual 0.4 mg sublingual Q5M PRN Chest 10/16/19 05/27/23 tablet (Nitrostat) Pain potassium chloride 10 mEq 10 meq PO DAILY 10/16/19 05/27/23 capsule,extended release furosemide 20 mg tablet 20 mg PO BID 10/18/19 05/27/23 isosorbide mononitrate 30 mg 30 mg PO DAILY 12/19/21 05/27/23 tablet,extended release 24 hr lisinopril 20 1 tablet PO DAILY 12/19/21 05/27/23 mg-hydrochlorothiazide 25 mg tablet sitagliptin phosphate 100 mg 50 mg PO DAILY 01/02/23 05/27/23 tablet (Januvia) amlodipine 5 mg tablet 5 mg PO DAILY 05/27/23 05/27/23 Allergies Allergy/AdvReac Type Severity Reaction Status Date / Time atenolol Allergy Severe Nausea Verified 05/27/23 08:42 Iodinated Contrast Media Allergy Severe heart Verified 05/27/23 08:42 stopped Review of Systems Constitutional: Constitutional: Denies weakness Cardiovascular: Cardiovascular: Denies syncope, Denies rapid heart rate, Denies irregular heart rhythm, Denies leg edema and Denies dyspnea Respiratory: Respiratory: Denies chest congestion, Denies hemoptysis, Denies excessive phlegm production and Denies dyspnea Gastrointestinal: Gastrointestinal: Denies abdominal pain, Denies hematochezia, Denies diarrhea and Denies vomiting Genitourinary: Genitourinary: Denies hematuria, Denies dysuria, Denies penile discharge and Denies testicular pain Musculoskeletal: Musculoskeletal: Denies joint swelling, Denies loss of height and Denies muscle weakness Neurologic: Denies syncope, Denies focal weakness and Denies weakness PMFSH Past Medical History Medical History Aortic aneurysm ASHD (arteriosclerotic heart disease) Dementia Essential (primary) hypertension Glaucoma Gout Mixed hyperlipidemia Pitting edema Tinnitus Type 2 diabetes mellitus without complication, without long-term current use of insulin Weakness Surgical History Surgical History H/O heart bypass surgery 1996 History of appendectomy S/P coronary artery stent placement (2) 2015 (1) 2012 (2) 2011 (3) 2010 (1) 2009 ( 2) 1996 Family History Family History Mother Family history of dementia Father Family history of heart disease in male family member before age 55 Hyperlipidemia Son Acute myocardial infarction Social History Social History Social History: He lives with his . He had 2 children and his one son . 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
[2023-05-27] MEDS: ISOSORBIDE MONONITRATE 30 MG TAB.ER.24H PO (09:33)
[2023-05-27 09:35] LABS: Alanine Aminotransferase 30 U/L (6-50); Alkaline Phosphatase 93 U/L (38-126); Anion Gap 10 mmol/L (8-16); Aspartate Amino Transferase 34 U/L (17-59); Bilirubin,Total 0.6 mg/dL (0.2-1.3); Blood Urea Nitrogen 18 mg/dL (9-20); Calcium 8.8 mg/dL (8.4-10.2); Carbon Dioxide 22 mmol/L (22-30); Chloride 108 mmol/L (98-107); Estimated CRCL calculation 39 ml/min; Estimated Glomerular Filt Rate 53; Glucose 110 mg/dL (65-110); Potassium 3.7 mmol/L (3.4-5.0); Sodium 140 mmol/L (137-145)
[2023-05-27] MEDS: lisinopriL 20 MG TABLET PO (09:45)
[2023-05-27] MEDS: hydroCHLOROthiazide 25 MG TABLET PO (09:45)
[2023-05-27 09:47] VITALS: BP 167/89; PULSE 50; RESP 19; O2SAT 98
[2023-05-27 09:51] LABS: Appearance Urine Clear (Clear); Bilirubin Urine Negative (Negative); Blood Urine Negative (Negative); Color Urine Yellow (Yellow); Glucose Urine UA Negative (Negative); Ketones Urine Negative (Negative); Leukocyte Esterase Ur Negative LEU/UL (Negative); Nitrate Urine Negative (Negative); Protein Urine Negative (Negative); Specific Grav Ur 1.006 (1.001-1.035); Urobilinogen Urine 0.2 mg/dL (<2.0); pH Urine 7.5 (5.0-9.0)
[2023-05-27 09:54] LABS: Add Urine Microscopic? NO
[2023-05-27 10:40] VITALS: BP 172/66; PULSE 50; RESP 14; O2SAT 97
[2023-05-27 11:30] VITALS: BP 157/58; PULSE 52; RESP 15; TEMP 36.7; O2SAT 98
== END 2023-05-27 11:34 | disposition home or self-care (01) ==
PROVIDERS: Emergency Provider General Practice; PCP Nurse Practitioner
DX: I10 Essential (primary) hypertension (principal); F03.90 Unspecified dementia, unspecified severity, without behavioral disturbance, psychotic disturbance, mood disturbance, and anxiety; I25.10 Atherosclerotic heart disease of native coronary artery without angina pectoris; E11.39 Type 2 diabetes mellitus with other diabetic ophthalmic complication; H42 Glaucoma in diseases classified elsewhere; E78.2 Mixed hyperlipidemia; M10.9 Gout, unspecified; Z95.5 Presence of coronary angioplasty implant and graft; Z87.891 Personal history of nicotine dependence; Z79.84 Long term (current) use of oral hypoglycemic drugs; I49.1 Atrial premature depolarization; R94.31 Abnormal electrocardiogram [ECG] [EKG]
CPT/HCPCS: 36415; 80053; 81003; 85025; 93005; 99283; A9270

== ENCOUNTER 2023-07-14 12:24 | Observation (INO) | payer MEDICARE, SELFPAY ==
[2023-07-14] VITALS (33 sets, daily range): BP systolic 167–198; BP diastolic 59–106; PULSE 44–87; RESP 14–32; TEMP 36.3–36.9; O2SAT 72–100; BMI 26.6
--- NOTE | ~2023-07-14 | XR_ITS ---
EXAMINATION: XR chest 1V DATE: 07/14/2023 13:15 INDICATION: Chest pain. TECHNIQUE: A single frontal view of the chest was obtained. COMPARISON: Chest 2 views 05/10/2023, chest CT 10/11/2010 FINDINGS: There is a diffuse interstitial pattern, consistent mild pulmonary edema. No pleural effusi on or pneumothorax. Cardiomegaly is noted. Median sternotomy wires and mediastinal surgical clips are seen, likely from prior coronary artery bypass grafting. IMPRESSION: 1. Mild pulmonary edema. 2. Cardiomegaly. Reviewed, dictated and finalized at location E.
--- NOTE | 2023-07-14 12:40 | ECG_ITS ---
Measurements Intervals [place] Rate: 52 P: 53 [place]: 214 QRS: -34 QRSD: 105 T: 146 QT: 438 QTc: 409 Interpretive Statements SINUS BRADYCARDIA WITH FIRST DEGREE AV BLOCK WITH OCCASIONAL SUPRAVENTRICULAR PREMATURE COMPLEXES MARKED LEFT AXIS DEVIATION [QRS AXIS < -30] LOW QRS VOLTAGE IN PRECORDIAL LEADS [QRS DEFLECTION < 1.0 mV IN CHEST LEADS] PROBABLE SEPTAL MYOCARDIAL INFARCTION [35 ms Q WAVE IN V1/V2], OF INDETERMINATE AGE NONSPECIFIC T-WAVE CHANGES COMPARED TO ECG 05/27/2023 09:17:31 FIRST DEGREE AV BLOCK NOW PRESENT Electronically Signed On 07-14-2023 13:01:44 CDT by Marisabel Cortez M.D.
[2023-07-14 13:05] LABS: Basophils Percent Auto 0.7 % (0.2-1.2); Eosinophils Absolute Auto 0.1 K/mm3 (0-0.3); Eosinophils Percent Auto 2.6 % (0-4.4); Hematocrit 35.1 % (42.0-52.0); Hemoglobin 11.4 g/dL (14.0-18.0); Immature Granulocyte Absolute 0.01 K/mm3 (0.00-0.031); Immature Granulocyte Percent A 0.2 % (0-0.5); Lymphocytes Percent Auto 23.9 % (18.3-44.2); Mean Corpuscular HGB Conc 32.5 g/dl (32-36); Mean Corpuscular Hemoglobin 29.7 pg (26-34); Mean Corpuscular Volume 91.4 fl (80-100); Mean Platelet Volume 11.5 fl (7.4-10.4); Monocytes Absolute Auto 0.4 K/mm3 (0.1-0.6); Monocytes Percent Auto 8.4 % (2.6-8.5); Neutrophils Absolute Auto 2.7 K/mm3 (1.3-6.7); Neutrophils Percent Auto 64.2 % (45.5-73.1); Platelet Count Result 142 k/mm3 (150-375); Red Blood Count 3.84 M/mm3 (4.6-6.20); Red Cell Distribution Width 14.2 % (11.5-14.5); White Blood Count 4.2 K/mm3 (4.5-10.0)
[2023-07-14 13:16] LABS: INR 1.2; Prothrombin Time 15.2 Seconds (11.1-14.7)
[2023-07-14 13:17] LABS: Partial Thromboplastin Time 30.7 SECONDS (22.3-36.8)
[2023-07-14 13:22] LABS: Alanine Aminotransferase 18 U/L (6-50); Albumin Level 3.3 g/dL (3.5-5.1); Alkaline Phosphatase 82 U/L (38-126); Anion Gap 5 mmol/L (8-16); Aspartate Amino Transferase 20 U/L (17-59); Bilirubin,Total 0.5 mg/dL (0.2-1.3); Blood Urea Nitrogen 23 mg/dL (9-20); Calcium 8.2 mg/dL (8.4-10.2); Carbon Dioxide 23 mmol/L (22-30); Chloride 111 mmol/L (98-107); Estimated Glomerular Filt Rate 45; Glucose 164 mg/dL (65-110); Lipase 144 U/L (23-300); Potassium 3.4 mmol/L (3.4-5.0); Sodium 139 mmol/L (137-145)
[2023-07-14 13:43] LABS: NT Pro B Type Natriuretic Pept 595 pg/mL (19.9-100); Troponin I 0.058 ng/mL (0.000-0.034)
--- NOTE | 2023-07-14 14:38 | ED.CHESTPAIN ---
HPI - Chest Pain General Chief Complaint: Chest Pain Stated Complaint: CP, bradycardia Time Seen by Provider: 07/14/23 12:40 History of Present Illness HPI narrative: Patient with extensive cardiac history including multiple stents, CABG, presents here with chest pain that started this morning, he has already taken full dose aspirin, as well as several doses of nitro, with resolution of his chest pain. No shortness of breath. No nausea or vomiting, no radiation. Related Data Home Medications Medication Instructions Recorded Confirmed atorvastatin 80 mg tablet 80 mg PO DAILY 10/16/19 05/31/23 carvedilol 12.5 mg tablet 12.5 mg PO Q12H 10/16/19 05/31/23 clopidogrel 75 mg tablet 75 mg PO DAILY 10/16/19 05/31/23 nitroglycerin 0.4 mg sublingual 0.4 mg sublingual Q5M PRN Chest 10/16/19 05/31/23 tablet (Nitrostat) Pain potassium chloride 10 mEq 10 meq PO DAILY 10/16/19 05/31/23 capsule,extended release furosemide 20 mg tablet 20 mg PO BID 10/18/19 05/31/23 isosorbide mononitrate 30 mg 30 mg PO DAILY 12/19/21 05/31/23 tablet,extended release 24 hr lisinopril 20 1 tablet PO DAILY 12/19/21 05/31/23 mg-hydrochlorothiazide 25 mg tablet sitagliptin phosphate 100 mg 50 mg PO DAILY 01/02/23 05/31/23 tablet (Januvia) amlodipine 5 mg tablet 5 mg PO DAILY 05/27/23 05/31/23 Allergies Allergy/AdvReac Type Severity Reaction Status Date / Time atenolol Allergy Severe Nausea Verified 07/14/23 12:41 Iodinated Contrast Media Allergy Severe heart Verified 07/14/23 12:41 stopped Review of Systems Review of Systems: CONST: No fever. HEENT: No sore throat C/V: chest pain RESP: No cough GI: No nausea or vomiting : No dysuria. M/S: No joint pain. SKIN: No rash. NEURO: [No headache or focal numbness or weakness] PSYCH: [No depression] [facility] Past Medical History Medical History Aortic aneurysm ASHD (arteriosclerotic heart disease) Dementia Essential (primary) hypertension Glaucoma Gout Mixed hyperlipidemia Pitting edema Tinnitus Type 2 diabetes mellitus without complication, without long-term current use of insulin Weakness Surgical History Surgical History H/O heart bypass surgery 6 1996 History of appendectomy S/P coronary artery stent placement (2) 2016 (1) 2013 (2) 2012 (3) 2010 (1) 2009 ( 2) 1996 Family History Family History Mother Family history of dementia Father Family history of heart disease in male family member before age 55 Hyperlipidemia Son Acute myocardial infarction Social History Social History Social History: He lives with his . He had 2 children and his one son . 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 Smoking packs per day: 2 Smoking cigarettes per day: 40.0 Years smoked: 30 Smoking pack-years: 60.00 Smoking status: Former smoker Tobacco type: cigarettes Second hand tobacco smoke exposure: No Alcohol intake: never Substance use: never Substance use type: does not use Lack of Transportation: No Lack of Food: Never True Current Housing: I Have Housing Concerned About Future Housing: No Difficulty Paying Gas/Electric Bills: No Difficulty Paying for Meds: No Currently Unemployed: No Education: High School Diploma/GED Difficulty w/ Childcare or Family Care: No Spiritual care concerns: No Exam Narrative: EXAMINATION OF ORGAN SYSTEMS/BODY AREAS: Constitutional: Vital signs per nursing GENERAL: Resting comfortably HEAD: Normal with no signs of head trauma. EYES: EOMI, conjunctiva normal ENT: Pretty deaf LUNGS: Nonlabored breathing. HEART: [Regular rate and rhythm] ABD: [Soft], [nontender to palpation] EXT: Normal range of motion, normal bilateral radial pulses SKIN: [No r
[2023-07-14] MEDS: POTASSIUM CHLORIDE INJ 40 MEQ in SODIUM CHLORIDE 0.9% IV 500 ML 130 MEQ IVPB (14:43)
[2023-07-14] MEDS: HEPARIN SODIUM 5,000 UNITS/ML VIAL 4000 UNITS IV PUSH (14:45)
[2023-07-14] MEDS: HEPARIN SOD/D5W 100 UNITS/ML 25,000 UNITS/250 ML BAG 10 UNITS IV CONT (14:45)
--- NOTE | 2023-07-14 15:13 | PM.CNCAR ---
Assessment and Plan Assessment and plan (1) Acute non-ST elevation myocardial infarction (NSTEMI): Code(s): I21.4 - Non-ST elevation (NSTEMI) myocardial infarction Status: Acute Assessment and Plan: Episode of exertional chest pain earlier today. His troponin levels are chronically elevated and his first troponin today is mildly elevated at 0.058. EKG reviewed, no ST T-wave abnormalities concerning for ischemia. He has been started on a heparin drip Continue to trend troponin P.r.n. nitroglycerin Already on beta sagar. Continue. Discussed with family at the bedside. Because of extensive CAD history with multiple interventions and CABG, would be high risk candidate for LHC/PCI at this hospital. Offered transfer to [facility] where patient's palliative nurse practices, patient and family prefer admission here. Will pursue conservative medical management for now. (2) CAD (coronary artery disease): Code(s): I25.10 - Atherosclerotic heart disease of [place] coronary artery without angina pectoris Status: Acute Assessment and Plan: Extensive history of coronary artery disease as detailed in the HPI. He is having stable angina. Continue statin, Plavix Can intensify anti anginal therapy by advancing his Imdur dose and adding Ranexa. (3) Uncontrolled hypertension: Code(s): I10 - Essential (primary) hypertension Status: Acute Assessment and Plan: Above goal. Increase Imdur. Further adjustments can be made based on response to this change. History of Present Illness History of Present Illness Consult date/time: 07/14/23 15:13 Requesting physician: Melissa Melissa MD Consult reason: chest pain Reason For Visit: nstemi Narrative: Tony Menezes is an?82-year-old male with an extensive cardiac history including multiple myocardial infarctions status post CABG x6 (BOBBY to LAD,? sequential SVG to RCA and PDA, SVG to marginal branch and SVG to diagonal branch in?1996 at [facility]),?and multiple stents in 2010, 2012, 2012, 2016.? He follows with a palliative nurse at [facility]. He presents to the emergency room with a chief complaint of chest pain. Patient was doing some yard work including raking and bagging leaves when he developed severe central chest pressure. He went inside to rest but did not have relief of the chest pain so he took a nitroglycerin. He continued to have chest pain and took 2 more nitroglycerin in route to the hospital. At the time of my visit with him the emergency department, he is free from any chest pain and is lying comfortably in the stretcher. Review of Systems Review of Systems: All systems reviewed & are unremarkable except as noted in HPI and below PMFSH Past Medical History Medical History Aortic aneurysm ASHD (arteriosclerotic heart disease) Dementia Essential (primary) hypertension Glaucoma Gout Mixed hyperlipidemia Pitting edema Tinnitus Type 2 diabetes mellitus without complication, without long-term current use of insulin Weakness Surgical History Surgical History H/O heart bypass surgery 1996 History of appendectomy S/P coronary artery stent placement (2) 2015 (1) 2012 (2) 2011 (3) 2010 (1) 2009 ( 2) 1996 Family History Family History Mother Family history of dementia Father Family history of heart disease in male family member before age 55 Hyperlipidemia Son Acute myocardial infarction Social History Social History Social History: He lives with his . He had 2 children and his one son . 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
--- NOTE | 2023-07-14 16:09 | ADMGEN ---
This patient, Tony Menezes, was admitted to IMU Room 213-01. Patient/family oriented to hospital policies and general routines including ID bracelet, bed and alarms, visiting hours, pain management, procedures, bathroom and other care routines, personal items, smoking policy, room service/diet, and visiting hours. Information on how to activate the Rapid Response Team has been discussed. Patient/Family are encouraged to report perceived risks to care and to ask questions if they do not understand what they are told or what they should do.
[2023-07-14 16:24] LABS: Basophils Percent Auto 0.6 % (0.2-1.2); Eosinophils Absolute Auto 0.2 K/mm3 (0-0.3); Eosinophils Percent Auto 3.3 % (0-4.4); Hematocrit 39.9 % (42.0-52.0); Immature Granulocyte Absolute 0.01 K/mm3 (0.00-0.031); Immature Granulocyte Percent A 0.2 % (0-0.5); Lymphocytes Absolute Auto 1.28 K/mm3 (0.9-3.2); Lymphocytes Percent Auto 26.4 % (18.3-44.2); Mean Corpuscular HGB Conc 32.6 g/dl (32-36); Mean Corpuscular Hemoglobin 29.9 pg (26-34); Mean Corpuscular Volume 91.7 fl (80-100); Mean Platelet Volume 11.6 fl (7.4-10.4); Monocytes Absolute Auto 0.4 K/mm3 (0.1-0.6); Monocytes Percent Auto 7.2 % (2.6-8.5); Neutrophils Percent Auto 62.3 % (45.5-73.1); Platelet Count Result 156 k/mm3 (150-375); Red Blood Count 4.35 M/mm3 (4.6-6.20); Red Cell Distribution Width 14.1 % (11.5-14.5); White Blood Count 4.8 K/mm3 (4.5-10.0)
--- NOTE | 2023-07-14 18:05 | PM.IMHP ---
H&P: HPI History of Present Illness Date/Time: 07/14/23 18:05 Chief Complaint: Chest Pain Narrative: 82-year-old male presents here with recurrent chest pain with extensive cardiac history of 6 vessel CABG, 11 stents, aortic aneurysm, hypertension, glaucoma, gout, HLD, diabetes, and very [place]. Patient reports that he developed chest pain around 11:00 a.m. while he was picking up sticks in the yard. He described it as midsternal, constant, and nonradiating. Patient took 3-5 SL nitro in quick succession. Chest pain eventually resolved. No chest pain after arrival to the emergency department. No aggravating factors identified. Did report that resting/laying down helped to resolve his chest pain. He denies any associated nausea, vomiting, diaphoresis, or shortness of breath. Patient baseline has chills and is typically cold, otherwise no complaints of body aches or fever. Patient has extensive cardiac history: CABG - 6 vessel, 11 stents placed, and multiple admissions. Most recent admission at [facility] 2 months ago. reports that he was monitored in did not undergo a stress test, patient opted out. Does have a stress test scheduled for 09/02. Review of Systems Review of Systems: All systems reviewed & are unremarkable except as noted in HPI and below PMFSH Past Medical History Medical History Aortic aneurysm ASHD (arteriosclerotic heart disease) Dementia Essential (primary) hypertension Glaucoma Gout Mixed hyperlipidemia Pitting edema Tinnitus Type 2 diabetes mellitus without complication, without long-term current use of insulin Weakness Surgical History Surgical History H/O heart bypass surgery 1996 History of appendectomy S/P coronary artery stent placement (2) 2016 (1) 2013 (2) 2012 (3) 2010 (1) 2009 ( 2) 1996 Family History Family History Mother Family history of dementia Father Family history of heart disease in male family member before age 55 Hyperlipidemia Son Acute myocardial infarction Social History Social History (Updated 07/15/23 @ 03:03 by Chari Cabrera APRN) Social History: He lives with his . He had 2 children and his one son . 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 Surrogate decisionmaker: Meryl, spouse. Code status: Full code. Smoking packs per day: 1 Smoking cigarettes per day: 20.0 Years smoked: 30 Smoking pack-years: 30.00 Smoking status: Former smoker Tobacco type: cigarettes Second hand tobacco smoke exposure: No Alcohol intake: never Substance use: never Substance use type: does not use Lack of Transportation: No Lack of Food: Never True Current Housing: I Have Housing Concerned About Future Housing: No Difficulty Paying Gas/Electric Bills: No Difficulty Paying for Meds: No Currently Unemployed: No Education: Associate Degree Difficulty w/ Childcare or Family Care: No Spiritual care concerns: No Meds Home Medications and Allergies Home Medications Medication Instructions Recorded Confirmed Type atorvastatin 80 mg tablet 80 mg PO DAILY 10/16/19 07/14/23 History carvedilol 12.5 mg tablet 12.5 mg PO Q12H 10/16/19 07/14/23 History clopidogrel 75 mg tablet 75 mg PO DAILY 10/16/19 07/14/23 History nitroglycerin 0.4 mg sublingual 0.4 mg sublingual Q5M PRN Chest 10/16/19 07/14/23 History tablet (Nitrostat) Pain potassium chloride 10 mEq 10 meq PO DAILY 10/16/19 07/14/23 History capsule,extended release furosemide 20 mg tablet 20 mg PO BID 10/18/19 07/14/23 History isosorbide mononitrate 30 mg 30 mg PO DAILY 12/19/21 07/14/23 History tablet,extended release 24 hr lisinopril 20 1 tablet PO DAILY 12/19/21 07/14/23 History mg-hydrochlorothiazide 25 mg tablet sitagliptin phosphate 100 mg 50 m
[2023-07-14] MEDS: FUROSEMIDE 20 MG TABLET PO (18:07)
[2023-07-14 20:46] LABS: INR 1.1
[2023-07-14 21:02] LABS: Partial Thromboplastin Time > 200.0 SECONDS (22.3-36.8)
[2023-07-14 21:08] LABS: Troponin I 0.114 ng/mL (0.000-0.034)
[2023-07-14] MEDS: RANOLAZINE 500 MG TAB.ER.12H PO (21:20)
--- NOTE | 2023-07-14 22:55 | PC.NURSE ---
Kylie held d/t heart rate dropping to 39. Kam Cabrera notified.
[2023-07-15] VITALS (16 sets, daily range): BP systolic 113–196; BP diastolic 49–87; PULSE 46–96; RESP 16–20; TEMP 36.2–36.9; O2SAT 95–100
[2023-07-15 04:00] LABS: Basophils Percent Auto 0.4 % (0.2-1.2); Eosinophils Absolute Auto 0.2 K/mm3 (0-0.3); Hematocrit 40.5 % (42.0-52.0); Hemoglobin 13.7 g/dL (14.0-18.0); Immature Granulocyte Absolute 0.01 K/mm3 (0.00-0.031); Immature Granulocyte Percent A 0.2 % (0-0.5); Lymphocytes Absolute Auto 1.53 K/mm3 (0.9-3.2); Lymphocytes Percent Auto 28.9 % (18.3-44.2); Mean Corpuscular HGB Conc 33.8 g/dl (32-36); Mean Corpuscular Hemoglobin 30.3 pg (26-34); Mean Corpuscular Volume 89.6 fl (80-100); Mean Platelet Volume 11.5 fl (7.4-10.4); Monocytes Absolute Auto 0.5 K/mm3 (0.1-0.6); Monocytes Percent Auto 8.5 % (2.6-8.5); Neutrophils Absolute Auto 3.1 K/mm3 (1.3-6.7); Platelet Count Result 155 k/mm3 (150-375); Red Blood Count 4.52 M/mm3 (4.6-6.20); Red Cell Distribution Width 14.1 % (11.5-14.5); White Blood Count 5.3 K/mm3 (4.5-10.0)
[2023-07-15 04:13] LABS: Partial Thromboplastin Time 98.4 SECONDS (22.3-36.8)
--- NOTE | 2023-07-15 05:09 | PC.NURSE ---
Patient complained that he had been yelling for help for an hour. This nurse had just been in the room next to his 10 minutes earlier. Also patient had been checked on by tech. Then patient calls someone to the room because there is a fly on the ceiling. This nurse goes immediately to room and patient complains there is a spider. Lights turned on, no spider or fly. This nurse sat with patient and Reassurance given to patient and patient calmed down. No complaints at this time except, I'm going home today .
--- NOTE | 2023-07-15 08:00 | ECG_ITS ---
Measurements Intervals [place] Rate: 59 P: 9 [place]: 265 QRS: -42 QRSD: 101 T: 88 QT: 454 QTc: 450 Interpretive Statements SINUS BRADYCARDIA WITH MARKED SINUS ARRHYTHMIA WITH FIRST DEGREE AV BLOCK MARKED LEFT AXIS DEVIATION [QRS AXIS < -30] LOW QRS VOLTAGE IN PRECORDIAL LEADS [QRS DEFLECTION < 1.0 mV IN CHEST LEADS] ABNORMAL ECG WARNING: DATA QUALITY MAY AFFECT INTERPRETATION COMPARED TO ECG 07/14/2023 12:32:21 NO SIGNIFICANT DIFFERENCE Electronically Signed On 07-15-2023 15:09:13 CDT by Ovi Petty M.D.
[2023-07-15 08:46] LABS: Glucose Point of Care 168 mg/dl (65-105)
[2023-07-15 10:04] LABS: Partial Thromboplastin Time 80.4 SECONDS (22.3-36.8)
--- NOTE | 2023-07-15 10:06 | PM.PNCARD ---
Progress Note: A&P Assessment and Plan (1) Acute non-ST elevation myocardial infarction (NSTEMI): Code(s): I21.4 - Non-ST elevation (NSTEMI) myocardial infarction Status: Acute Assessment and Plan: Episode of exertional chest pain earlier today. His troponin levels are chronically elevated and his first troponin today is mildly elevated at 0.058. EKG reviewed, no ST T-wave abnormalities concerning for ischemia. He has been started on a heparin drip, can discontinue after 48 hours of therapy. P.r.n. nitroglycerin Already on beta sagar. Continue. Discussed with family at the bedside. Because of extensive CAD history with multiple interventions and CABG, would be high risk candidate for LHC/PCI at this hospital. Offered transfer to [facility] where patient's rn admit practices, patient and family prefer admission here. Will pursue conservative medical management for now. Likely discharge tomorrow if he remains asymptomatic and stable. (2) CAD (coronary artery disease): Code(s): I25.10 - Atherosclerotic heart disease of [place] coronary artery without angina pectoris Status: Acute Assessment and Plan: Extensive history of coronary artery disease as detailed in the HPI. He is having stable angina. Continue statin, Plavix Can intensify anti anginal therapy by advancing his Imdur dose and adding Ranexa. (3) Uncontrolled hypertension: Code(s): I10 - Essential (primary) hypertension Status: Acute Assessment and Plan: Remains above goal. Increased Imdur. Will also increase Norvasc. Subjective Date/time seen: 07/15/23 10:06 Interval history: Cardiology follow-up for NSTEMI He is feeling well this morning. Has not had any recurrent chest pain overnight. Review of Systems Review of Systems: All systems reviewed & are unremarkable except as noted in HPI and below Exam Const: General: comfortable, no acute distress, alert and awake Orientation/consciousness: patient oriented x3 HENMT: Head: normal to inspection Other: Hard of hearing Eyes: General: appearance normal, both eyes and all related structures Pupils: Equal, round and reactive pupils present Neck: Neck: normal visual inspection, supple and no JVD Carotids: normal carotid upstroke Resp: Effort & Inspection: normal respiratory effort Auscultation: clear to auscultation bilaterally Cardio: Rate: regular rate Rhythm: regular rhythm Heart sounds: S1 normal heart sound present, S2 normal heart sound present and no murmurs GI: Auscultation: normal bowel sounds Skin: General skin exam: normal color Neuro: General: patient oriented x3 Cranial nerves: Yes Equal, round and reactive pupils present Extrem: General: normal to inspection Psych: Appearance: grossly normal Mental Status: mental status grossly normal Objective Data Vital Signs Vital Signs: Vital Signs - 24 hr 07/14/23 12:17 07/14/23 12:39 07/14/23 14:41 Temperature 36.5 C Pulse Rate 51 L 57 L Respiratory Rate 18 19 Blood Pressure 181/67 H 181/101 H Pulse Oximetry 100 100 95 Oxygen Delivery Room Air Room Air 07/14/23 12:48 07/14/23 13:00 07/14/23 13:02 Temperature Pulse Rate 54 L 61 Respiratory Rate 17 20 19 Blood Pressure 183/67 H Pulse Oximetry 99 100 100 Oxygen Delivery 07/14/23 13:16 07/14/23 13:18 07/14/23 13:30 Temperature Pulse Rate 58 L Respiratory Rate 19 19 22 H Blood Pressure 185/64 H Pulse Oximetry 100 100 Oxygen Delivery 07/14/23 13:32 07/14/23 13:45 07/14/23 13:47 Temperature Pulse Rate 52 L 50 L 60 Respiratory Rate 24 H 20 24 H Blood Pressure 190/62 H 195/63 H Pulse Oximetry 96 72 L Oxygen Delivery 07/14/23 14:00 07/14/23 14:02 07/14/23 14:15 Temperature Pulse Rate 49 L 55 L 60 Respiratory Rate 22 H 20 15 Blood Pressure 198/73 H Pulse Oximetry 98 99 Oxygen Delivery 07/14/23 14:17 07/14/23 14:30 07/14/23 14:32 Tem
[2023-07-15] MEDS: amLODIPine BESYLATE 5 MG TABLET PO (10:15)
[2023-07-15] MEDS: RANOLAZINE 500 MG TAB.ER.12H PO ×2 (10:15→21:15)
[2023-07-15] MEDS: hydroCHLOROthiazide 25 MG TABLET PO (10:15)
[2023-07-15] MEDS: carvediloL 12.5 MG TABLET PO (10:15)
[2023-07-15] MEDS: FUROSEMIDE 20 MG TABLET PO ×2 (10:15→17:43)
[2023-07-15] MEDS: ISOSORBIDE MONONITRATE 60 MG TAB.ER.24H PO (10:15)
[2023-07-15] MEDS: POTASSIUM CHLORIDE 10 MEQ ER TABLET PO (10:15)
[2023-07-15] MEDS: ATORVASTATIN 40 MG TABLET 80 MG PO (10:15)
[2023-07-15] MEDS: CLOPIDOGREL BISULFATE 75 MG TABLET PO (10:15)
[2023-07-15] MEDS: lisinopriL 20 MG TABLET PO (10:15)
[2023-07-15 11:50] LABS: Glucose Point of Care 115 mg/dl (65-105)
--- NOTE | 2023-07-15 16:05 | PM.IMPN ---
Progress Note: A&P Assessment and Plan (1) Acute non-ST elevation myocardial infarction (NSTEMI): Code(s): I21.4 - Non-ST elevation (NSTEMI) myocardial infarction Status: Acute Assessment and Plan: Patient presents with complaints of chest pain with exertion. He has a significant coronary disease hx as detailed elsewhere. No benefit with resting but resolved with NTGEKG showing sinus calos (52) with first degree AVB, LAD, septal MS of indeterminate age and nonspecific T wave changes. No significant change from prior. CXR showing mild pulmonary edema and CMG. Troponin climbed to 0.114. Cardiology consulted and felt patient with acute non ST elevation [place]. Because of extensive CAD history with multiple interventions and CABG, Cardiology felt that patient is at high risk for complications for LHC/PCI and did not recommend the procedure here. Cardiology offered to transfer patient to [facility] where patient's paratransit operator practices, but patient and family prefer to stay here. Plan is to pursue conservative medical management for now.? Continue Coreg, Lipitor, Plavix and Lisinopril. Imdur increased to 60mg daily and Ranexa added. Remains on Heparin drip. Add Aspirin? Increase activity. Home when okay with Cardiology. (2) CAD (coronary artery disease): Code(s): I25.10 - Atherosclerotic heart disease of [place] coronary artery without angina pectoris Status: Acute Assessment and Plan: As above. Plan for medical management. Per cardiology intensify anti anginal therapy by increasing Imdur and adding Ranexa (3) Essential (primary) hypertension: Code(s): I10 - Essential (primary) hypertension Status: Acute Assessment and Plan: Patient's blood pressure was reviewed on 07/15 Blood pressure was elevated but better at most recent check Will continue current medications. (4) Type 2 diabetes mellitus with renal manifestations: Qualifiers: Diabetes mellitus intermediate teacher insulin use: without longterm use Diabetes mellitus complication detail: with chronic kidney disease Chronic kidney disease stage: stage 3 (moderate) Qualified Code(s): E11.22 - Type 2 diabetes mellitus with diabetic chronic kidney disease; N18.3 - Chronic kidney disease, stage 3 (moderate) Code(s): E11.29 - Type 2 diabetes mellitus with other diabetic kidney complication Status: Acute Assessment and Plan: The patient's blood glucose was reviewed on 10/27 Glucose remains well controlled. Continue AccuCheks covering with sliding scale. Hypoglycemia protocol available as needed. Continue to monitor Plan Diet: Heart healthy GI Prophylaxis: Not indicated DVT Prophylaxis: SCDs, heparin Code Status: Full code Subjective Date/time seen: 07/15/23 16:05 Interval history: 82y male with CAD, HTN and DM here for chest pain. No CP or SOB currently. No CP since admission. no n/v. has not been out of bed. Exam Narrative: AF 98.1 113/49 96 17 95% ra Gen - NARD Chest - CTA bilaterally, nml RR CV - RRR S1/S2. Tele showing occasional bradycardia but almost always about 45bpm Abd - Soft, NT/ND, Positive BS Ext - L>R chronic pedal edema Neuro - Alert and appropriate. [place] Psych - Nml mood and affect Skin - Warm and dry Objective Data Vital Signs Vital Signs: Vital Signs - 24 hr 07/14/23 16:12 07/14/23 18:00 07/14/23 20:44 Temperature 97.3 F L 97.6 F Pulse Rate 66 87 46 L Respiratory Rate 20 18 Blood Pressure 167/106 H 173/64 H Pulse Oximetry 98 95 Oxygen Delivery 07/14/23 20:00 07/14/23 20:00 07/14/23 22:55 Temperature Pulse Rate 46 L 49 L 44 L Respiratory Rate 18 Blood Pressure Pulse Oximetry 95 Oxygen Delivery Room Air 07/14/23 22:56 07/14/23 23:04 07/14/23 22:00 Temperature 98.4 F Pulse Rate 44 L 46 L 50 L Respiratory Rate 20 Blood Pressure 184/59 H Pulse Oximetry 100 Oxygen Delivery 07/15/23 00:00
[2023-07-15 17:47] LABS: Glucose Point of Care 154 mg/dl (65-105)
[2023-07-15 20:38] LABS: Glucose Point of Care 151 mg/dl (65-105)
[2023-07-15] MEDS: HEPARIN SOD/D5W 100 UNITS/ML 25,000 UNITS/250 ML BAG 8 UNITS IV CONT (21:09)
[2023-07-16] VITALS (10 sets, daily range): BP systolic 111–154; BP diastolic 52–86; PULSE 55–68; RESP 14–18; TEMP 36.4–36.9; O2SAT 93–98
[2023-07-16 05:25] LABS: Hematocrit 40.1 % (42.0-52.0); Hemoglobin 13.4 g/dL (14.0-18.0); Mean Corpuscular HGB Conc 33.4 g/dl (32-36); Mean Corpuscular Hemoglobin 30.1 pg (26-34); Mean Corpuscular Volume 90.1 fl (80-100); Mean Platelet Volume 11.7 fl (7.4-10.4); Platelet Count Result 160 k/mm3 (150-375); Red Blood Count 4.45 M/mm3 (4.6-6.20); Red Cell Distribution Width 14.1 % (11.5-14.5); White Blood Count 5.1 K/mm3 (4.5-10.0)
[2023-07-16 05:38] LABS: Partial Thromboplastin Time 92.8 SECONDS (22.3-36.8)
[2023-07-16 05:40] LABS: Anion Gap 8 mmol/L (8-16); Blood Urea Nitrogen 22 mg/dL (9-20); Calcium 8.7 mg/dL (8.4-10.2); Carbon Dioxide 24 mmol/L (22-30); Chloride 103 mmol/L (98-107); Estimated CRCL calculation 29 ml/min; Estimated Glomerular Filt Rate 36; Glucose 116 mg/dL (65-110); Potassium 3.2 mmol/L (3.4-5.0); Sodium 135 mmol/L (137-145)
[2023-07-16 09:03] LABS: Glucose Point of Care 116 mg/dl (65-105)
[2023-07-16] MEDS: ISOSORBIDE MONONITRATE 60 MG TAB.ER.24H PO (09:28)
[2023-07-16] MEDS: carvediloL 12.5 MG TABLET PO (09:29)
[2023-07-16] MEDS: FUROSEMIDE 20 MG TABLET PO (09:29)
[2023-07-16] MEDS: POTASSIUM CHLORIDE 10 MEQ ER TABLET PO (09:29)
[2023-07-16] MEDS: POTASSIUM CHLORIDE 20 MEQ ER TABLET PO (09:29)
[2023-07-16] MEDS: RANOLAZINE 500 MG TAB.ER.12H PO (09:30)
[2023-07-16] MEDS: hydroCHLOROthiazide 25 MG TABLET PO (09:30)
[2023-07-16] MEDS: CLOPIDOGREL BISULFATE 75 MG TABLET PO (09:30)
[2023-07-16] MEDS: ATORVASTATIN 40 MG TABLET 80 MG PO (09:30)
[2023-07-16] MEDS: amLODIPine BESYLATE 5 MG TABLET 10 MG PO (09:30)
[2023-07-16] MEDS: lisinopriL 20 MG TABLET PO (09:30)
--- NOTE | 2023-07-16 11:15 | PM.PNCARD ---
Progress Note: A&P Assessment and Plan (1) Acute non-ST elevation myocardial infarction (NSTEMI): Code(s): I21.4 - Non-ST elevation (NSTEMI) myocardial infarction Status: Acute Assessment and Plan: Episode of exertional chest pain earlier today. His troponin levels are chronically elevated and his first troponin today is mildly elevated at 0.058. EKG reviewed, no ST T-wave abnormalities concerning for ischemia. P.r.n. nitroglycerin Already on beta sagar. Continue. Discussed with family at the bedside. Because of extensive CAD history with multiple interventions and CABG, would be high risk candidate for LHC/PCI at this hospital. He was previously offered transfer to [facility] where patient's pharmacy service associate practices, patient and family preferred admission here. Conservative medical management pursued at this juncture. Discontinue heparin drip. Observe for least 2-3 hours after discontinuation and after ambulation for recurrent anginal symptoms. Explain on a quickly he must contact his pharmacy service associate Dr. Iraheta 1st thing Tuesday morning and be seen immediately for anticipated coronary angiography. I explained in great detail my concerns with regards to his presentation with non ST elevation [place]. given the complexity of his history I explained it is difficult to state his overall risk but that he certainly is at high risk for complications in the immediate term for worsening infarction, unstable symptoms including . Patient is asymptomatic and hemodynamically stable and doing quite well at this time so I expect he will continue as such. However, I explained that he must not engage in any strenuous activity and he notices any recurrent symptoms at all at rest or progressive symptoms with minimal activity to present to the ER immediately and they if he presented back to [facility] this would necessitate transfer to [facility] where his pharmacy service associate is located as it was not felt to be the best decision to proceed with diagnostic coronary angiography at this institution unless it is an emergency. They verbalized understanding of this recommendation and agreed. I also explained in great detail that the increase in his Imdur and the addition of Ranexa are not therapies which will reduce his risk for subsequent events or myocardial infarction. Made it clear this for symptom management only. Made it clear that my concerns with regards to his presentation and NSTEMI are different circumstance benefit presented with progressive symptoms without any evidence of injury or infarction. I explained that this is a higher risk circumstance that must be dealt with very soon. He kept telling me he was doing something that he should not been and working harder than he was supposed to at the time his symptoms began yet I explained all this may be the case and may have been coincidental as opposed to the only reason this occurred. I recommend the addition of aspirin 81 mg daily in addition to clopidogrel 75 mg daily. He denies any issues in the past. Monitor for bleeding. Patient is otherwise stable for discharge home from a cardiac perspective and per their wishes to follow-up with his pharmacy service associate as soon as possible. He will return to the ER with any significant persistent symptoms or new concerns. I also explained my preference would have been that they agreed to transfer to [facility] for invasive angiography but given their wishes for conservative management strategy at this time risks persist they remain difficult to characterize as his precise anatomy is not known at present. They understand the circumstance. Leo check 12 lead ECG prior to discharge to assess timing intervals given initiation of Ranexa. I spent 38 minutes in the care of this patient at bedside including discussion with the patient, family, chart review, medical decision-making, and documentation. (2) CAD (coronary artery disease): Qualifiers: [place]
--- NOTE | 2023-07-16 11:32 | ECG_ITS ---
Measurements Intervals [place] Rate: 56 P: 39 MD: 226 QRS: -45 QRSD: 123 T: 107 QT: 475 QTc: 460 Interpretive Statements SINUS BRADYCARDIA WITH FIRST DEGREE AV BLOCK WITH OCCASIONAL VENTRICULAR PREMATURE COMPLEXES LEFT ANTERIOR FASCICULAR BLOCK [QRS AXIS <= -45, QR IN I, RS IN II] LEFT VENTRICULAR HYPERTROPHY AND ST-T CHANGE [VOLTAGE CRITERIA PLUS ST/T ABNORMALITY] ABNORMAL ECG COMPARED TO PRIOR TRACING LEFT ANTERIOR FASCICULAR BLOCK NOW PRESENT LEFT VENTRICULAR HYPERTROPHY NOW PRESENT ST (T WAVE) DEVIATION NOW PRESENT Electronically Signed On 07-16-2023 14:44:42 CDT by Oj Malik M.D.
[2023-07-16 12:17] LABS: Glucose Point of Care 132 mg/dl (65-105)
--- NOTE | 2023-07-16 13:52 | PM.DS ---
DS: Admitting Diagnosis Discharge Date 07/16/23 Admitting Diagnosis Chest pain DS: Discharge Diagnosis Discharge Diagnosis (1) Acute non-ST elevation myocardial infarction (NSTEMI): Code(s): I21.4 - Non-ST elevation (NSTEMI) myocardial infarction Status: Acute (2) CAD (coronary artery disease): Qualifiers: Associated angina: with stable angina Coronary Disease-Associated Artery/Lesion type: [place] artery [place] vs. transplanted heart: [place] heart Qualified Code(s): I25.118 - Atherosclerotic heart disease of [place] coronary artery with other forms of angina pectoris Code(s): I25.10 - Atherosclerotic heart disease of [place] coronary artery without angina pectoris Status: Acute (3) Essential (primary) hypertension: Code(s): I10 - Essential (primary) hypertension Status: Acute (4) Type 2 diabetes mellitus with renal manifestations: Qualifiers: Chronic kidney disease stage: stage 3 (moderate) Diabetes mellitus complication detail: with chronic kidney disease Diabetes mellitus senior living insulin use: without terminal clerk use Qualified Code(s): E11.22 - Type 2 diabetes mellitus with diabetic chronic kidney disease; N18.3 - Chronic kidney disease, stage 3 (moderate) Code(s): E11.29 - Type 2 diabetes mellitus with other diabetic kidney complication Status: Acute DS: Summary Hospital Course Reason for hospitalization: 82y male with CAD, HTN and DM here for chest pain. Please see H&P for details. Hospital Course: Patient presents with complaints of chest pain with exertion. He has a significant coronary disease hx as detailed elsewhere. No benefit with resting but resolved with NTG. EKG showing sinus calos (52) with first degree AVB, LAD, septal IA of indeterminate age and nonspecific T wave changes. No significant change from prior EKG. CXR showing mild pulmonary edema and CMG. Troponin climbed to 0.114. Cardiology consulted and felt patient had an acute non ST elevation [place]. He was started on a Heparin drip. Because of extensive CAD history with multiple interventions and CABG, Cardiology felt that patient was at high risk for complications for LHC/PCI and did not recommend that the procedure be peformed here. Cardiology offered to transfer patient to [facility] where patient's senior sql server dba practices, but patient and family prefer to stay here. Plan was for conservative medical management. We continued Coreg, Lipitor, Plavix and Lisinopril. Imdur increased to 60mg daily and Ranexa added. Aspirin added (but he states he is already taking ASA at home). He did not have any further episodes of chest pain. He overall did well and was able to be discharged home on 07/16/23 Status at Discharge Cognitive/behavioral status at discharge: stable Time Spent with Patient Time attestation: Total time spent providing and/or coordinating discharge services: 35 minutes Time spent: Greater than 30 minutes Exam Narrative: AF 97.6 111/52 60 18 98% ra Gen - NARD Chest - CTA bilaterally, nml RR CV - RRR S1/S2. Tele showing occasional PVCs Abd - Soft, NT/ND, Positive BS Ext - trace pedal edema Neuro - Alert and appropriate. [place] Psych - Nml mood and affect Skin - Warm and dry DS: Data Data Completed and Pending Labs on day of discharge: Labs from last 24 hours 07/16/23 07/16/23 07/16/23 12:01 08:39 04:56 WBC 5.1 RBC 4.45 L Hgb 13.4 L Hct 40.1 L MCV 90.1 MCH 30.1 MCHC 33.4 RDW 14.1 Plt Count 160 MPV 11.7 H APTT 92.8 H Sodium 135 L Potassium 3.2 L Chloride 103 Carbon Dioxide 24 Anion Gap 8 BUN 22 H Creatinine 1.80 H Estim Creat Clear Calc 29 Estimated GFR 36 L Glucose 116 H POC Capillary Glucose 132 H 116 H Calcium 8.7 07/15/23 07/15/23 20:27 17:44 WBC RBC Hgb Hct MCV MCH MCHC RDW Plt Count MPV APTT Sodium Potassium Chlori
== END 2023-07-16 14:45 | disposition home or self-care (01) ==
LOC: ANHED 14:47 → ANHIMU 15:35
PROVIDERS: Student in an Organized Health Care Education/Training Program; Admitting Provider General Practice; Emergency Provider Emergency Medicine; PCP Nurse Practitioner; Visit Provider Internal Medicine
DX: I21.4 Non-ST elevation (NSTEMI) myocardial infarction (principal); I25.118 Atherosclerotic heart disease of native coronary artery with other forms of angina pectoris; I23.7 Postinfarction angina; Z95.1 Presence of aortocoronary bypass graft; I13.10 Hypertensive heart and chronic kidney disease without heart failure, with stage 1 through stage 4 chronic kidney disease, or unspecified chronic kidney disease; E11.22 Type 2 diabetes mellitus with diabetic chronic kidney disease; N18.30 Chronic kidney disease, stage 3 unspecified; H40.9 Unspecified glaucoma; F03.90 Unspecified dementia, unspecified severity, without behavioral disturbance, psychotic disturbance, mood disturbance, and anxiety; M10.9 Gout, unspecified; E78.2 Mixed hyperlipidemia; E11.59 Type 2 diabetes mellitus with other circulatory complications; I15.2 Hypertension secondary to endocrine disorders; R94.31 Abnormal electrocardiogram [ECG] [EKG]; J81.1 Chronic pulmonary edema; H93.19 Tinnitus, unspecified ear; Z79.02 Long term (current) use of antithrombotics/antiplatelets; Z79.84 Long term (current) use of oral hypoglycemic drugs; Z79.899 Other long term (current) drug therapy; Z87.891 Personal history of nicotine dependence
CPT/HCPCS: 36415; 71045; 80048; 80053; 82948; 83690; 83880; 84484; 85025; 85027; 85610; 85730; 93005; 96365; 96366; 96375; 99285; A9270; G0378; J1644; J3480; J7040

== ENCOUNTER 2023-09-21 13:44 | Emergency (ER) | payer MEDICARE, SELFPAY ==
[2023-09-21] VITALS (23 sets, daily range): BP systolic 155–190; BP diastolic 60–108; PULSE 52–95; RESP 12–22; TEMP 36.4; O2SAT 96–100
--- NOTE | ~2023-09-21 | XR_ITS ---
XR chest 1V portable DATE: 09/21/2023 14:42 INDICATION: Chest pain. Weakness. TECHNIQUE: Portable AP chest on 09/21/2023 at 1440 hours COMPARISON: 07/14/2023 AP chest FINDINGS: Status post sternotomy and probable coronary bypass graft surgery. Coronary artery stent. There is pulmonary vascular congestion. There are Cm B-lines consistent with pulmonary interstiti al edema. Mild patchy infiltrates which predominate centrally and in the lower lung zones, particularly left lo wer lobe which may be due to pulmonary edema and/or pneumonia. No pneumothorax. Aortic arch calcification. Osteopenia. Degenerative spurring and dextroscoliosis of the thoracic spine. Probable calcified gallstones, right upper quadrant. IMPRESSION: Pulmonary vascular congestion, pulmonary interstitial edema Bilateral infiltrates which may be due to pulmonary edema and/or pneumonia Coronary artery stent Status post sternotomy and probable CABG Aortic atherosclerosis Cholelithiasis Osteopenia Reviewed, dictated and finalized at location B. STRIAL SALES MANAGER
--- NOTE | 2023-09-21 13:45 | ECG_ITS ---
Measurements Intervals [place] Rate: 72 P: -1 NM: 189 QRS: -50 QRSD: 102 T: 72 QT: 424 QTc: 464 Interpretive Statements SINUS RHYTHM ATRIAL AND VENTRICULAR PREMATURE COMPLEXES LOW QRS VOLTAGE IN PRECORDIAL LEADS LEFT ANTERIOR FASCICULAR BLOCK CANNOT RULE OUT SEPTAL INFARCT, AGE INDETERMINATE BORDERLINE ST-T WAVE ABNORMALITY- HIGH LATERAL LEADS BASELINE ARTIFACT- I, II, III, AVR, V1-V6 ABNORMAL ECG COMPARED TO ECG 07/16/2023 12:07:37 SINUS RHYTHM NOW PRESENT Electronically Signed On 09-21-2023 14:06:02 CORONER TECHNICIAN by Fernando Canales D.O.
[2023-09-21 14:04] LABS: Basophils Percent Auto 0.6 % (0.2-1.2); Eosinophils Absolute Auto 0.1 K/mm3 (0-0.3); Eosinophils Percent Auto 2.4 % (0-4.4); Hematocrit 41.7 % (42.0-52.0); Hemoglobin 13.7 g/dL (14.0-18.0); Immature Granulocyte Absolute 0.01 K/mm3 (0.00-0.031); Immature Granulocyte Percent A 0.2 % (0-0.5); Lymphocytes Absolute Auto 1.64 K/mm3 (0.9-3.2); Lymphocytes Percent Auto 32.3 % (18.3-44.2); Mean Corpuscular HGB Conc 32.9 g/dl (32-36); Mean Corpuscular Volume 91.2 fl (80-100); Mean Platelet Volume 10.7 fl (7.4-10.4); Monocytes Absolute Auto 0.4 K/mm3 (0.1-0.6); Monocytes Percent Auto 7.3 % (2.6-8.5); Neutrophils Absolute Auto 2.9 K/mm3 (1.3-6.7); Neutrophils Percent Auto 57.2 % (45.5-73.1); Platelet Count Result 225 k/mm3 (150-375); Red Blood Count 4.57 M/mm3 (4.6-6.20); Red Cell Distribution Width 13.5 % (11.5-14.5); White Blood Count 5.1 K/mm3 (4.5-10.0)
[2023-09-21 14:16] LABS: Alanine Aminotransferase 24 U/L (6-50); Albumin Level 4.3 g/dL (3.5-5.1); Alkaline Phosphatase 117 U/L (38-126); Anion Gap 11 mmol/L (8-16); Aspartate Amino Transferase 28 U/L (17-59); Bilirubin,Total 0.6 mg/dL (0.2-1.3); Blood Urea Nitrogen 15 mg/dL (9-20); Calcium 9.5 mg/dL (8.4-10.2); Carbon Dioxide 25 mmol/L (22-30); Chloride 104 mmol/L (98-107); Estimated CRCL calculation 38 ml/min; Estimated Glomerular Filt Rate 49; Glucose 148 mg/dL (65-110); Lipase 172 U/L (23-300); Potassium 3.4 mmol/L (3.4-5.0); Sodium 140 mmol/L (137-145)
[2023-09-21 14:17] LABS: Prothrombin Time 13.5 Seconds (11.1-14.7)
--- NOTE | 2023-09-21 14:19 | ECG_ITS ---
Measurements Intervals [place] Rate: 67 P: 30 MI: 242 QRS: -42 QRSD: 104 T: 0 QT: 229 QTc: 242 Interpretive Statements SINUS RHYTHM WITH FIRST DEGREE AV BLOCK FREQUENT ATRIAL PREMATURE COMPLEXES LEFT AXIS DEVIATION LOW QRS VOLTAGE IN PRECORDIAL LEADS ANTEROSEPTAL INFARCT, AGE INDETERMINATE BORDERLINE ST-T WAVE ABNORMALITY- ANTEROLAT/HIGH LAT LEADS BASELINE ARTIFACT- I, II, III, AVR, AVL, AVF, V1-V6 ABNORMAL ECG COMPARED TO ECG 09/21/2023 14:01:01 FIRST DEGREE AV BLOCK NOW PRESENT Electronically Signed On 09-21-2023 14:37:42 PROPERTY MAINTENANCE SUPERVISOR by Fernando Canales D.O.
--- NOTE | 2023-09-21 14:24 | ED.CHESTPAIN ---
HPI - Chest Pain General Chief Complaint: Chest Pain Stated Complaint: chest pain Time Seen by Provider: 09/21/23 14:12 History of Present Illness HPI narrative: Patient is an 82-year-old male with history of coronary artery disease s/p CABG x6 at [facility] in 1996, multiple stents in 2010, 2011, 2012, 2015, follows with keller machine operator at [facility] here with chest pain. Patient's helps with history. She notes that he went to run some errands for earlier today and was caring a big box back into the house and started complaining of some chest pain. He notes that it was midsternal, nonradiating with no associated symptoms. He took 5 nitroglycerin, this is around 1330. He currently notes that he is chest pain-free. He does follow with a keller machine operator at [facility], has been seen here for chest pain in the past and they recommended that he go to the emergency department or be transferred to [facility] should symptoms recur. No recent illness, no cough, congestion, fever, chills. No shortness of breath. Related Data Home Medications Medication Instructions Recorded Confirmed atorvastatin 80 mg tablet 80 mg PO DAILY 10/16/19 07/14/23 carvedilol 12.5 mg tablet 12.5 mg PO Q12H 10/16/19 07/14/23 clopidogrel 75 mg tablet 75 mg PO DAILY 10/16/19 07/14/23 nitroglycerin 0.4 mg sublingual 0.4 mg sublingual Q5M PRN Chest 10/16/19 07/14/23 tablet (Nitrostat) Pain potassium chloride 10 mEq 10 meq PO DAILY 10/16/19 07/14/23 capsule,extended release furosemide 20 mg tablet 20 mg PO BID 10/18/19 07/14/23 lisinopril 20 1 tablet PO DAILY 12/19/21 07/14/23 mg-hydrochlorothiazide 25 mg tablet sitagliptin phosphate 100 mg 50 mg PO DAILY 01/02/23 07/14/23 tablet (Januvia) Allergies Allergy/AdvReac Type Severity Reaction Status Date / Time atenolol Allergy Severe Nausea Verified 07/14/23 12:41 Iodinated Contrast Media Allergy Severe heart Verified 07/14/23 12:41 stopped Review of Systems Review of Systems: All systems reviewed & are unremarkable except as noted in HPI and below PMFSH Past Medical History Medical History Aortic aneurysm ASHD (arteriosclerotic heart disease) Dementia Essential (primary) hypertension Glaucoma Gout Mixed hyperlipidemia Pitting edema Tinnitus Type 2 diabetes mellitus without complication, without long-term current use of insulin Weakness Surgical History Surgical History H/O heart bypass surgery 1996 History of appendectomy S/P coronary artery stent placement (2) 2015 (1) 2012 (2) 2011 (3) 2010 (1) 2009 ( 2) 1996 Family History Family History Mother Family history of dementia Father Family history of heart disease in male family member before age 55 Hyperlipidemia Son Acute myocardial infarction Social History Social History (Updated 07/15/23 @ 03:03 by Chari Cabrera, KAMRAN) Social History: He lives with his . He had 2 children and his one son . 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 Surrogate decisionmaker: Meryl, spouse. Code status: Full code. Smoking packs per day: 1 Smoking cigarettes per day: 20.0 Years smoked: 30 Smoking pack-years: 30.00 Smoking status: Former smoker Tobacco type: cigarettes Second hand tobacco smoke exposure: No Alcohol intake: never Substance use: never Substance use type: does not use Lack of Transportation: No Lack of Food: Never True Current Housing: I Have Housing Concerned About Future Housing: No Difficulty Paying Gas/Electric Bills: No Difficulty Paying for Meds: No Currently Unemployed: No Education: Associate Degree Difficulty w/ Childcare or Family Care: No Spiritual care concerns: No Exam Narrative: GENERAL: Well-appearing, well-nourished, and in no ac
[2023-09-21 14:32] LABS: Troponin I 0.067 ng/mL (0.000-0.034)
[2023-09-21] MEDS: ASPIRIN 81 MG CHEWABLE TABLET 324 MG PO (14:32)
[2023-09-21 15:41] LABS: NT Pro B Type Natriuretic Pept 617 pg/mL (19.9-100)
[2023-09-21 17:54] LABS: Troponin I 0.066 ng/mL (0.000-0.034)
== END 2023-09-21 17:36 | disposition short-term general hospital (02) ==
LOC: ANHED 14:31
PROVIDERS: Emergency Medicine; Emergency Provider Student in an Organized Health Care Education/Training Program; PCP Nurse Practitioner
DX: R07.9 Chest pain, unspecified (principal); I25.10 Atherosclerotic heart disease of native coronary artery without angina pectoris; I10 Essential (primary) hypertension; I25.2 Old myocardial infarction; F03.90 Unspecified dementia, unspecified severity, without behavioral disturbance, psychotic disturbance, mood disturbance, and anxiety; E78.2 Mixed hyperlipidemia; E11.9 Type 2 diabetes mellitus without complications; H40.9 Unspecified glaucoma; M10.9 Gout, unspecified; Z95.1 Presence of aortocoronary bypass graft; Z95.5 Presence of coronary angioplasty implant and graft; Z87.891 Personal history of nicotine dependence; Z79.84 Long term (current) use of oral hypoglycemic drugs; Z79.82 Long term (current) use of aspirin; I49.1 Atrial premature depolarization; I49.3 Ventricular premature depolarization; R94.31 Abnormal electrocardiogram [ECG] [EKG]; R09.89 Other specified symptoms and signs involving the circulatory and respiratory systems; J81.1 Chronic pulmonary edema; R91.8 Other nonspecific abnormal finding of lung field; I70.0 Atherosclerosis of aorta; M85.88 Other specified disorders of bone density and structure, other site; K80.20 Calculus of gallbladder without cholecystitis without obstruction
CPT/HCPCS: 36415; 71045; 80053; 83690; 83880; 84484; 85025; 85610; 85730; 93005; 99285; A9270

== ENCOUNTER 2023-11-01 19:09 | Emergency (ER) | payer MEDICARE, SELFPAY ==
[2023-11-01] VITALS (9 sets, daily range): BP systolic 159–197; BP diastolic 57–74; PULSE 51–57; RESP 12–20; TEMP 36.4; O2SAT 97–100
--- NOTE | ~2023-11-01 | XR_ITS ---
EXAMINATION: XR chest 1V portable DATE: 11/01/2023 19:26 INDICATION: Chest pain TECHNIQUE: frontal view of the chest was obtained. COMPARISON: Chest radiograph dated 09/21/2023 FINDINGS: Interval resolution of prior interstitial and airspace opacities in the lower lungs. No new airspace opacities, pulmonary edema, pleural effusion or pneumothorax. The cardiomediastinal silhouette is nor mal with small pericardial fat pad extending from apex of the heart to the left costophrenic angle. M patrickian sternotomy wires and mediastinal surgical clips are seen, likely from prior coronary artery byp ass grafting. There is also been prior coronary artery stenting projecting over the superior left hea rt border. IMPRESSION: 1. No acute cardiopulmonary disease. Reviewed, dictated and finalized at location A. OARDER
--- NOTE | 2023-11-01 19:12 | ECG_ITS ---
Measurements Intervals [place] Rate: 45 P: 51 NC: 250 QRS: -33 QRSD: 111 T: 83 QT: 492 QTc: 429 Interpretive Statements SINUS BRADYCARDIA WITH FIRST DEGREE AV BLOCK WITH OCCASIONAL SUPRAVENTRICULAR PREMATURE COMPLEXES MARKED LEFT AXIS DEVIATION [QRS AXIS < -30] LOW QRS VOLTAGE IN PRECORDIAL LEADS [QRS DEFLECTION < 1.0 mV IN CHEST LEADS] POSSIBLE LEFT VENTRICULAR HYPERTROPHY [VOLTAGE CRITERIA PLUS LAE OR QRS WIDENING] POSSIBLE ANTEROSEPTAL MYOCARDIAL INFARCTION , PROBABLY OLD [30 ms Q WAVE IN V1-V4] ABNORMAL ECG COMPARED TO ECG 09/21/2023 14:17:19 SINUS BRADYCARDIA NOW PRESENT Electronically Signed On 11-02-2023 11:45:48 ALLOCATIONS CLERK by Oliverio Payan M.D.
--- NOTE | 2023-11-01 19:17 | ECG_ITS ---
Measurements Intervals [place] Rate: 60 P: 48 MD: 227 QRS: -36 QRSD: 100 T: 68 QT: 457 QTc: 457 Interpretive Statements SINUS RHYTHM WITH FIRST DEGREE AV BLOCK WITH FREQUENT SUPRAVENTRICULAR PREMATURE COMPLEXES LEFT AXIS DEVIATION [QRS AXIS < -30] PROBABLE ANTEROSEPTAL MYOCARDIAL INFARCTION , OF INDETERMINATE AGE [35 ms Q WAVE IN V1- V4] COMPARED TO ECG 09/21/2023 14:17:19 NO SIGNIFICANT CHANGES Electronically Signed On 11-02-2023 14:41:03 GAS COLLECTION SYSTEM OPERATOR by Marielos Rowe M.D.
--- NOTE | 2023-11-01 19:18 | ED.GENADULT ---
HPI - General Adult General Chief complaint: Chest Pain Stated complaint: chest pain Time Seen by Provider: 11/01/23 19:17 History of Present Illness HPI narrative: Patient is an 82-year-old male with history of coronary artery disease s/p CABG x6 at [facility] in 1996, multiple stents in 2010, 2011, 2012, 2015, follows with auto wrecker at [facility] here with chest pain. Patient was installing a water heater in his house and going up and down the stairs repeatedly. Eventually he developed chest discomfort in the center of his chest that he relates to his previous heart attacks. Called EMS and arrived at our hospital. On arrival his chest pain had improved eventually completely resolved. He is currently pain-free The patient states that he does get chest discomfort when he goes up down stairs. he has not noticed a decrease in his exercise tolerance. He had a catheterization at [facility] in the last month. Related Data Home Medications Medication Instructions Recorded Confirmed atorvastatin 80 mg tablet 80 mg PO DAILY 10/16/19 10/21/23 carvedilol 12.5 mg tablet 12.5 mg PO Q12H 10/16/19 10/21/23 clopidogrel 75 mg tablet 75 mg PO DAILY 10/16/19 10/21/23 nitroglycerin 0.4 mg sublingual 0.4 mg sublingual Q5M PRN Chest 10/16/19 10/21/23 tablet (Nitrostat) Pain lisinopril 20 1 tablet PO DAILY 12/19/21 10/21/23 mg-hydrochlorothiazide 25 mg tablet furosemide 20 mg tablet 20 mg PO DAILY 10/21/23 10/21/23 Allergies Allergy/AdvReac Type Severity Reaction Status Date / Time atenolol Allergy Severe Nausea Verified 10/21/23 12:51 Iodinated Contrast Media Allergy Severe heart Verified 10/21/23 12:51 stopped PMFSH Past Medical History Medical History Aortic aneurysm ASHD (arteriosclerotic heart disease) Dementia Essential (primary) hypertension Glaucoma Gout Mixed hyperlipidemia Pitting edema Tinnitus Type 2 diabetes mellitus without complication, without long-term current use of insulin Weakness Surgical History Surgical History H/O heart bypass surgery 6 1996 History of appendectomy S/P coronary artery stent placement (2) 2016 (1) 2013 (2) 2012 (3) 2010 (1) 2009 ( 2) 1996 Family History Family History Mother Family history of dementia Father Family history of heart disease in male family member before age 55 Hyperlipidemia Son Acute myocardial infarction Social History Social History Social History: He lives with his . He had 2 children and his one son . 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 Surrogate decisionmaker: Meryl, spouse. Code status: Full code. Smoking packs per day: 1 Smoking cigarettes per day: 20.0 Years smoked: 30 Smoking pack-years: 30.00 Smoking status: Former smoker Tobacco type: cigarettes Second hand tobacco smoke exposure: No Alcohol intake: never Substance use: never Substance use type: does not use Lack of Transportation: No Lack of Food: Never True Current Housing: I Have Housing Concerned About Future Housing: No Difficulty Paying Gas/Electric Bills: No Difficulty Paying for Meds: No Currently Unemployed: No Education: Associate Degree Difficulty w/ Childcare or Family Care: No Spiritual care concerns: No Exam Narrative: APPEARANCE: No apparent distress. Head: atraumatic. EYES: EOMI, NOSE: Atraumatic NECK: Trachea midline RESPIRATORY: No increased rate of breathing clear to auscultation CARDIOVASCULAR: RRR, +1 edema of the left lower leg. Patient states is chronic ABDOMINAL: Non-distended MUSCULOSKELETAl: No obvious deformities NEURO: Alert. Moving 4/4 extremities SKIN:: Warm, dry. Normal color PSYCHIATRIC: Normal affect Course Vital Sign
[2023-11-01 19:39] LABS: Basophils Percent Auto 0.5 % (0.2-1.2); Eosinophils Absolute Auto 0.2 K/mm3 (0-0.3); Eosinophils Percent Auto 4.3 % (0-4.4); Hematocrit 35.7 % (42.0-52.0); Hemoglobin 11.7 g/dL (14.0-18.0); Immature Granulocyte Absolute 0.01 K/mm3 (0.00-0.031); Immature Granulocyte Percent A 0.3 % (0-0.5); Lymphocytes Absolute Auto 0.97 K/mm3 (0.9-3.2); Lymphocytes Percent Auto 26.3 % (18.3-44.2); Mean Corpuscular HGB Conc 32.8 g/dl (32-36); Mean Corpuscular Hemoglobin 30.4 pg (26-34); Mean Corpuscular Volume 92.7 fl (80-100); Mean Platelet Volume 11.5 fl (7.4-10.4); Monocytes Absolute Auto 0.3 K/mm3 (0.1-0.6); Monocytes Percent Auto 7.3 % (2.6-8.5); Neutrophils Absolute Auto 2.3 K/mm3 (1.3-6.7); Neutrophils Percent Auto 61.3 % (45.5-73.1); Platelet Count Result 158 k/mm3 (150-375); Red Blood Count 3.85 M/mm3 (4.6-6.20); Red Cell Distribution Width 14.1 % (11.5-14.5); White Blood Count 3.7 K/mm3 (4.5-10.0)
[2023-11-01 19:43] LABS: Alanine Aminotransferase 21 U/L (6-50); Albumin Level 3.8 g/dL (3.5-5.1); Alkaline Phosphatase 68 U/L (38-126); Anion Gap 7 mmol/L (8-16); Aspartate Amino Transferase 24 U/L (17-59); Bilirubin,Total 0.9 mg/dL (0.2-1.3); Blood Urea Nitrogen 15 mg/dL (9-20); Carbon Dioxide 25 mmol/L (22-30); Chloride 108 mmol/L (98-107); Estimated CRCL calculation 34 ml/min; Estimated Glomerular Filt Rate 45; Glucose 128 mg/dL (65-110); Lipase 118 U/L (23-300); Potassium 3.3 mmol/L (3.4-5.0); Sodium 140 mmol/L (137-145)
[2023-11-01 19:44] LABS: INR 1.1; Prothrombin Time 15.1 Seconds (11.1-14.7)
[2023-11-01 19:45] LABS: Partial Thromboplastin Time 32.1 SECONDS (22.3-36.8)
[2023-11-01 19:55] LABS: Troponin I 0.033 ng/mL (0.000-0.034)
[2023-11-01 20:07] LABS: D Dimer 0.51 ug/mL (<0.48)
[2023-11-01 20:14] LABS: NT Pro B Type Natriuretic Pept 1140 pg/mL (19.9-100)
[2023-11-01 23:41] LABS: Troponin I 0.031 ng/mL (0.000-0.034)
[2023-11-02 00:02] VITALS: BP 176/83; PULSE 52; RESP 15; O2SAT 100
[2023-11-02 00:18] VITALS: PULSE 51
[2023-11-02 00:48] VITALS: BP 187/86; PULSE 50; RESP 21; O2SAT 99
[2023-11-02 01:01] VITALS: BP 176/57; PULSE 61; RESP 12; O2SAT 100
== END 2023-11-02 01:56 | disposition home or self-care (01) ==
PROVIDERS: Emergency Provider Emergency Medicine; PCP Nurse Practitioner
DX: I25.119 Atherosclerotic heart disease of native coronary artery with unspecified angina pectoris (principal); F03.90 Unspecified dementia, unspecified severity, without behavioral disturbance, psychotic disturbance, mood disturbance, and anxiety; I10 Essential (primary) hypertension; I25.2 Old myocardial infarction; E78.2 Mixed hyperlipidemia; E11.9 Type 2 diabetes mellitus without complications; Z95.1 Presence of aortocoronary bypass graft; Z95.5 Presence of coronary angioplasty implant and graft; M10.9 Gout, unspecified; Z87.891 Personal history of nicotine dependence; I44.0 Atrioventricular block, first degree; I49.1 Atrial premature depolarization; R94.31 Abnormal electrocardiogram [ECG] [EKG]; Z79.82 Long term (current) use of aspirin
CPT/HCPCS: 36415; 71045; 80053; 83690; 83880; 84484; 85025; 85380; 85610; 85730; 93005; 99284

== ENCOUNTER 2023-12-02 09:59 | Emergency (ER) | payer MEDICARE, SELFPAY ==
[2023-12-02] VITALS (11 sets, daily range): BP systolic 157–212; BP diastolic 65–92; PULSE 45–68; RESP 12–21; TEMP 36.8; O2SAT 98–100
--- NOTE | ~2023-12-02 | XR_ITS ---
EXAMINATION: XR chest 1V portable DATE: 12/02/2023 11:04 INDICATION: Right-sided numbness. TECHNIQUE: A single frontal view of the chest was obtained on 2 radiographs. COMPARISON: Chest single view 11/01/2023 FINDINGS: There is no pneumonia, pleural effusion, or pneumothorax. The heart size is normal. Median sternotomy wires and mediastinal surgical clips are seen, likely from prior coronary artery bypass gr afting. There are gallstones in the gallbladder. IMPRESSION: 1. No acute cardiopulmonary disease. 2. Cholelithiasis. Reviewed, dictated and finalized at location A.
--- NOTE | ~2023-12-02 | CT_ITS ---
NAME: Tony Menezes DATE OF : 44 EXAMINATION: CT BRAIN WO DATE: 12/02/23 at 10:01 AM INDICATION: Acute stroke. TECHNIQUE: Computed tomography (CT) of the head was performed without intravenous contrast. The mA wa s adjusted according to patient size. Iterative reconstruction technique was employed. The dose-lengt h product was 681 mGy-cm. COMPARISON: Head CT 01/02/2023 FINDINGS: There is no intracranial hemorrhage, acute infarction, or abnormal intracranial mass lesion . There are scattered areas of low attenuation in the cerebral white matter, which is within normal l imits for the patient's age. The ventricles are normal in size. There are likely changes of ocular le ns replacement surgeries. There is mild mucosal thickening in the paranasal sinuses. The mastoid air cells are normal. IMPRESSION: 1. Normal brain. I called this result to Dr. Camacho. Reviewed, dictated and finalized at location A.
--- NOTE | 2023-12-02 10:01 | ECG_ITS ---
Measurements Intervals [place] Rate: 51 P: 125 ND: 230 QRS: 223 QRSD: 108 T: 14 QT: 456 QTc: 420 Interpretive Statements SINUS BRADYCARDIA WITH FIRST DEGREE AV BLOCK ATRIAL PREMATURE COMPLEXES ARM LEADS REVERSED CANNOT RULE OUT SEPTAL INFARCT, AGE INDETERMINATE BORDERLINE ST-T WAVE ABNORMALITY- ANTEROLAT/INF LEADS BASELINE ARTIFACT- I, II, III, AVR, AVL, AVF, V1-V6 ABNORMAL ECG COMPARED TO ECG 11/01/2023 22:25:45 NO SIGNIFICANT CHANGES Electronically Signed On 12-02-2023 11:10:42 CDT by Fernando Canales D.O.
[2023-12-02 10:14] LABS: Basophils Percent Auto 0.7 % (0.2-1.2); Eosinophils Absolute Auto 0.1 K/mm3 (0-0.3); Eosinophils Percent Auto 3.1 % (0-4.4); Hemoglobin 13.4 g/dL (14.0-18.0); Immature Granulocyte Absolute 0.01 K/mm3 (0.00-0.031); Immature Granulocyte Percent A 0.2 % (0-0.5); Lymphocytes Absolute Auto 1.57 K/mm3 (0.9-3.2); Lymphocytes Percent Auto 35.2 % (18.3-44.2); Mean Corpuscular HGB Conc 32.7 g/dl (32-36); Mean Corpuscular Hemoglobin 30.5 pg (26-34); Mean Corpuscular Volume 93.4 fl (80-100); Mean Platelet Volume 11.3 fl (7.4-10.4); Monocytes Absolute Auto 0.4 K/mm3 (0.1-0.6); Neutrophils Absolute Auto 2.3 K/mm3 (1.3-6.7); Neutrophils Percent Auto 51.8 % (45.5-73.1); Platelet Count Result 157 k/mm3 (150-375); Red Blood Count 4.39 M/mm3 (4.6-6.20); Red Cell Distribution Width 14.3 % (11.5-14.5); White Blood Count 4.5 K/mm3 (4.5-10.0)
[2023-12-02] MEDS: DEXTROSE 10% 500 ML 999 ML IV CONT (10:20)
[2023-12-02 10:29] LABS: INR 1.1; Prothrombin Time 14.6 Seconds (11.1-14.7)
[2023-12-02 10:30] LABS: Partial Thromboplastin Time 30.9 Seconds (22.3-36.8)
[2023-12-02 10:35] LABS: Alanine Aminotransferase 24 U/L (6-50); Albumin Level 4.2 g/dL (3.5-5.1); Alkaline Phosphatase 72 U/L (38-126); Anion Gap 7 mmol/L (8-16); Aspartate Amino Transferase 32 U/L (17-59); Bilirubin,Total 0.8 mg/dL (0.2-1.3); Blood Urea Nitrogen 15 mg/dL (9-20); Calcium 9.2 mg/dL (8.4-10.2); Carbon Dioxide 28 mmol/L (22-30); Chloride 104 mmol/L (98-107); Estimated CRCL calculation 39 ml/min; Estimated Glomerular Filt Rate 53; Glucose 88 mg/dL (65-110); Potassium 3.5 mmol/L (3.4-5.0); Sodium 139 mmol/L (137-145)
[2023-12-02 10:39] LABS: Troponin I 0.035 ng/mL (0.000-0.034)
--- NOTE | 2023-12-02 10:54 | PC.NURSE ---
Pts states pt has not had daily meds yet.
[2023-12-02 11:38] LABS: Glucose Point of Care 248 mg/dl (65-105)
--- NOTE | 2023-12-02 12:40 | PC.NURSE ---
Pt ambulation trial went well, patient safe and ready to go home.
--- NOTE | 2023-12-02 12:42 | ED.NEUROSD ---
HPI - Neuro Symptoms/Deficit General Chief Complaint: Suspected CVA Stated Complaint: right sided weakness aprox 25 mins Time Seen by Provider: 12/02/23 10:21 Source: patient Mode of arrival: wheelchair Limitations: no limitations History of Present Illness HPI Narrative: 83-year-old with history of CAD with multiple stents, hypertension, anxiety disorder, dementia was brought by with a complaint of sudden onset of right upper extremity numbness. Patient denies having any headache or chest pain. states that he was recently discharged from [facility] who week ago. He was started recently on new medication which she does not remember however she reports that his Coreg dosage was increased to 25 mg p.o. b.i.d.. His with bedside stated that he gets these episodes occasionally he gets anxious becomes extremely weak. His also reports that because of his underlying dementia she does not remember many eats. And she is unable to catch up with him Onset (ago): minute(s) (25) Timing confirmed by: spouse Location: right arm Severity: mild Quality: numb Relieving factors: none Context: sudden onset Associated symptoms: denies other symptoms Treatments Prior to Arrival: none Related Data Home Medications Medication Instructions Recorded Confirmed atorvastatin 80 mg tablet 80 mg PO DAILY 10/16/19 10/21/23 carvedilol 12.5 mg tablet 12.5 mg PO Q12H 10/16/19 10/21/23 clopidogrel 75 mg tablet 75 mg PO DAILY 10/16/19 10/21/23 nitroglycerin 0.4 mg sublingual 0.4 mg sublingual Q5M PRN Chest 10/16/19 10/21/23 tablet (Nitrostat) Pain lisinopril 20 1 tablet PO DAILY 12/19/21 10/21/23 mg-hydrochlorothiazide 25 mg tablet furosemide 20 mg tablet 20 mg PO DAILY 10/21/23 10/21/23 Allergies Allergy/AdvReac Type Severity Reaction Status Date / Time atenolol Allergy Severe Nausea Verified 10/21/23 12:51 Iodinated Contrast Media Allergy Severe heart Verified 10/21/23 12:51 stopped Review of Systems Review of Systems: All systems reviewed & are unremarkable except as noted in HPI and below Constitutional: Constitutional: Reports no additional constitutional complaints Eyes: Eyes: Reports no additional eye complaints ENT: Reports system reviewed and no additional complaints, except as documented Cardiovascular: Cardiovascular: Reports no additional cardiovascular complaints Respiratory: Respiratory: Reports no additional respiratory complaints Gastrointestinal: Gastrointestinal: Reports no additional gastrointestinal complaints Musculoskeletal: Musculoskeletal: Reports no additional musculoskeletal complaints and Reports as per [facility] Past Medical History Medical History Aortic aneurysm ASHD (arteriosclerotic heart disease) Dementia Essential (primary) hypertension Glaucoma Gout Mixed hyperlipidemia Pitting edema Tinnitus Type 2 diabetes mellitus without complication, without long-term current use of insulin Weakness Surgical History Surgical History H/O heart bypass surgery 1996 History of appendectomy S/P coronary artery stent placement (2) 2015 (1) 2012 (2) 2011 (3) 2010 (1) 2009 ( 2) 1996 Family History Family History Mother Family history of dementia Father Family history of heart disease in male family member before age 55 Hyperlipidemia Son Acute myocardial infarction Social History Social History Social History: He lives with his . He had 2 children and his one son . 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 Surrogate decisionmaker: Meryl, spouse. Code status: Full code. Smoking packs per day: 1 Smoking cigarettes per day: 20.0 Years smoked: 30 Smoking pack-years: 30.00 Smoking status: Former smoker To
== END 2023-12-02 12:56 | disposition home or self-care (01) ==
PROVIDERS: Emergency Provider Family Medicine; PCP Nurse Practitioner
DX: E11.649 Type 2 diabetes mellitus with hypoglycemia without coma (principal); R53.1 Weakness; F41.9 Anxiety disorder, unspecified; F03.90 Unspecified dementia, unspecified severity, without behavioral disturbance, psychotic disturbance, mood disturbance, and anxiety; I10 Essential (primary) hypertension; I25.10 Atherosclerotic heart disease of native coronary artery without angina pectoris; E78.2 Mixed hyperlipidemia; E11.39 Type 2 diabetes mellitus with other diabetic ophthalmic complication; H42 Glaucoma in diseases classified elsewhere; M10.9 Gout, unspecified; Z95.5 Presence of coronary angioplasty implant and graft; Z95.1 Presence of aortocoronary bypass graft; Z87.891 Personal history of nicotine dependence; Z79.82 Long term (current) use of aspirin; K80.20 Calculus of gallbladder without cholecystitis without obstruction; I44.0 Atrioventricular block, first degree; I49.1 Atrial premature depolarization; R94.31 Abnormal electrocardiogram [ECG] [EKG]
CPT/HCPCS: 36415; 70450; 71045; 80053; 82948; 84484; 85025; 85610; 85730; 93005; 96365; 99284

== ENCOUNTER 2024-02-02 03:01 | Observation (INO) | payer MEDICARE, SELFPAY ==
[2024-02-02] VITALS (10 sets, daily range): BP systolic 128–183; BP diastolic 47–81; PULSE 44–69; RESP 12–17; TEMP 36.1–37.2; O2SAT 95–100; BMI 23.3
--- NOTE | ~2024-02-02 | XR_ITS ---
Clinical Indication: Chest pain AP and lateral views of the chest: Comparison: 12/02/2023 Findings: Probable minimal left pleural effusion with hazy bibasilar airspace disease, most compatibl e mild pulmonary edema.. Cardiomediastinal silhouette is stable, status post CABG. Bones and soft ti ssues are unremarkable. Impression: Mild bibasilar pulmonary edema with minimal left pleural effusion. Status post CABG. Reviewed, dictated and finalized at location . Impression: Mild bibasilar pulmonary edema with minimal left pleural effusion. Status post CABG.
--- NOTE | 2024-02-02 03:02 | ECG_ITS ---
SEE SCANNED COPY FOR CONFIRMED REPORT MTDD
--- NOTE | 2024-02-02 03:20 | ED.GENADULT ---
HPI - General Adult General Chief complaint: Chest Pain Stated complaint: chest pain Time Seen by Provider: 02/02/24 03:05 History of Present Illness HPI narrative: Patient 83-year-old gentleman who presents emergency department with chief complaint of chest pain patient reports that about 30 minutes prior to arrival he started having severe pain in his chest the patient reports it feels similar to whenever he had a heart attack in the past. Patient has had episodes of anxiety before in the past. The patient describes the pain is similar to whenever he had a heart attack in the past Related Data Home Medications Medication Instructions Recorded Confirmed atorvastatin 80 mg tablet 80 mg PO DAILY 10/16/19 10/21/23 carvedilol 12.5 mg tablet 12.5 mg PO Q12H 10/16/19 10/21/23 clopidogrel 75 mg tablet 75 mg PO DAILY 10/16/19 10/21/23 nitroglycerin 0.4 mg sublingual 0.4 mg sublingual Q5M PRN Chest 10/16/19 10/21/23 tablet (Nitrostat) Pain lisinopril 20 1 tablet PO DAILY 12/19/21 10/21/23 mg-hydrochlorothiazide 25 mg tablet furosemide 20 mg tablet 20 mg PO DAILY 10/21/23 10/21/23 Allergies Allergy/AdvReac Type Severity Reaction Status Date / Time atenolol Allergy Severe Nausea Verified 12/16/23 13:13 Iodinated Contrast Media Allergy Severe heart Verified 12/16/23 13:13 stopped Review of Systems Review of Systems: A 10 system review of systems was completed on the patient and is negative except for what is stated in the HPI. Nursing and ancillary documentation was reviewed. [facility] Past Medical History Medical History Aortic aneurysm ASHD (arteriosclerotic heart disease) Dementia Essential (primary) hypertension Glaucoma Gout Mixed hyperlipidemia Pitting edema Tinnitus Type 2 diabetes mellitus without complication, without long-term current use of insulin Weakness Surgical History Surgical History H/O heart bypass surgery 6 1996 History of appendectomy S/P coronary artery stent placement (2) 2016 (1) 2013 (2) 2012 (3) 2010 (1) 2009 ( 2) 1996 Family History Family History Mother Family history of dementia Father Family history of heart disease in male family member before age 55 Hyperlipidemia Son Acute myocardial infarction Social History Social History Social History: He lives with his . He had 2 children and his one son . 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 Surrogate decisionmaker: Meryl, spouse. Code status: Full code. Smoking packs per day: 1 Smoking cigarettes per day: 20.0 Years smoked: 30 Smoking pack-years: 30.00 Smoking status: Former smoker Tobacco type: cigarettes Second hand tobacco smoke exposure: No Alcohol intake: never Substance use: never Substance use type: does not use Lack of Transportation: No Lack of Food: Never True Current Housing: I Have Housing Concerned About Future Housing: No Difficulty Paying Gas/Electric Bills: No Difficulty Paying for Meds: No Currently Unemployed: No Education: Associate Degree Difficulty w/ Childcare or Family Care: No Spiritual care concerns: No Course Vital Signs Vital signs: Vital Signs Temperature 36.4 C L 02/02/24 03:08 Pulse Rate 54 L 02/02/24 03:08 Respiratory Rate 14 02/02/24 03:08 Blood Pressure 173/81 H 02/02/24 03:08 Pulse Oximetry 100 02/02/24 03:08 Oxygen Delivery Room Air 02/02/24 03:08 Temperature 36.4 C L 02/02/24 03:08 Pulse Rate 69 02/02/24 04:59 Respiratory Rate 17 02/02/24 04:59 Blood Pressure 169/56 H 02/02/24 04:59 Pulse Oximetry 97 02/02/24 04:59 Oxygen Delivery Room Air 02/02/24 03:08 Medical Decision Making DENA Mojica
[2024-02-02 03:24] LABS: Basophils Percent Auto 0.6 % (0.2-1.2); Eosinophils Absolute Auto 0.1 K/mm3 (0-0.3); Eosinophils Percent Auto 3.2 % (0-4.4); Hematocrit 36.9 % (42.0-52.0); Hemoglobin 12.4 g/dL (14.0-18.0); Immature Granulocyte Absolute 0.01 K/mm3 (0.00-0.031); Immature Granulocyte Percent A 0.3 % (0-0.5); Lymphocytes Absolute Auto 1.15 K/mm3 (0.9-3.2); Lymphocytes Percent Auto 33.5 % (18.3-44.2); Mean Corpuscular HGB Conc 33.6 g/dl (32-36); Mean Corpuscular Hemoglobin 31.9 pg (26-34); Mean Corpuscular Volume 94.9 fl (80-100); Monocytes Absolute Auto 0.3 K/mm3 (0.1-0.6); Monocytes Percent Auto 9.6 % (2.6-8.5); Neutrophils Absolute Auto 1.8 K/mm3 (1.3-6.7); Neutrophils Percent Auto 52.8 % (45.5-73.1); Platelet Count Result 150 k/mm3 (150-375); Red Blood Count 3.89 M/mm3 (4.6-6.20); Red Cell Distribution Width 14.5 % (11.5-14.5); White Blood Count 3.4 K/mm3 (4.5-10.0)
[2024-02-02] MEDS: MORPHINE SULFATE (*CRX) 4 MG/ML INJ 2 MG IV PUSH (03:25)
[2024-02-02] MEDS: SODIUM CHLORIDE 0.9% IV 1,000 ML 999 ML IV CONT (03:26)
[2024-02-02 03:40] LABS: Alanine Aminotransferase 13 U/L (6-50); Albumin Level 3.8 g/dL (3.5-5.1); Alkaline Phosphatase 79 U/L (38-126); Anion Gap 6 mmol/L (4-12); Aspartate Amino Transferase 22 U/L (17-59); Bilirubin,Total 0.5 mg/dL (0.2-1.3); Blood Urea Nitrogen 12 mg/dL (9-20); Calcium 8.7 mg/dL (8.4-10.2); Carbon Dioxide 25 mmol/L (22-30); Chloride 108 mmol/L (98-107); Estimated CRCL calculation 33 ml/min; Estimated Glomerular Filt Rate 42; Glucose 176 mg/dL (65-110); Lipase 133 U/L (23-300); Potassium 3.7 mmol/L (3.4-5.0); Sodium 139 mmol/L (137-145)
[2024-02-02 03:46] LABS: Partial Thromboplastin Time 30.2 Seconds (22.3-36.8)
[2024-02-02 03:51] LABS: Glucose Point of Care 138 mg/dl (65-105)
[2024-02-02] MEDS: ASPIRIN 300 MG SUPPOSITORY RECTAL (04:13)
--- NOTE | 2024-02-02 05:55 | ECG_ITS ---
SEE SCANNED COPY FOR CONFIRMED REPORT MTDD
--- NOTE | 2024-02-02 06:10 | PC.NURSE ---
Pt has remained bradycardic throughout time in ED. EDP Dr. Akhtar aware of pts HR. A repeat EKG was preformed at 0505 when pt HR dropped to low 40s. No further orders from provider.
[2024-02-02 06:39] LABS: Troponin I 0.033 ng/mL (0.000-0.034)
--- NOTE | 2024-02-02 06:43 | ADMGEN ---
This patient, Tony Menezes Jr., was admitted to IMU Room 206-01. Patient/family oriented to hospital policies and general routines including ID bracelet, bed and alarms, visiting hours, pain management, procedures, bathroom and other care routines, personal items, smoking policy, room service/diet, and visiting hours. Information on how to activate the Rapid Response Team has been discussed. Patient/Family are encouraged to report perceived risks to care and to ask questions if they do not understand what they are told or what they should do.
--- NOTE | 2024-02-02 06:44 | ADMGEN ---
This patient, Tony Menezes Jr., was admitted to IMU Room 206-01 at 0630. Patient/family oriented to hospital policies and general routines including ID bracelet, bed and alarms, visiting hours, pain management, procedures, bathroom and other care routines, personal items, smoking policy, room service/diet, and visiting hours. Information on how to activate the Rapid Response Team has been discussed. Patient/Family are encouraged to report perceived risks to care and to ask questions if they do not understand what they are told or what they should do.
--- NOTE | 2024-02-02 08:50 | PM.IMHP ---
H&P: HPI History of Present Illness Date/Time: 02/02/24 08:50 Chief Complaint: Chest Pain Narrative: Patient is an 83-year-old male who presented to the emergency department with complaints chest pain. Patient has an extensive medical history which includes CAD who had a CABG and stents, HLD, HTN, dementia, anxiety disorder, aortic aneurysm, and untreated diabetes type II. Initial assessment in the emergency department showed EKG with sinus Narciso with no ischemic changes, mildly elevated troponin of 0.035 but trended down with a heart score 7. CXR showed mild pulmonary edema with minimal pleural effusion, hypertensive, and hyperglycemia otherwise labs unremarkable. Patient did have a recent hospitalization with a cardiac catheterization that showed re-occlusion of 2 of the stents with no intervention and medical management. Patient to be admitted for further evaluation and a consult to cardiology. Review of Systems Review of Systems: All systems reviewed & are unremarkable except as noted in HPI and below PMFSH Past Medical History Medical History Aortic aneurysm ASHD (arteriosclerotic heart disease) Dementia Essential (primary) hypertension Glaucoma Gout Mixed hyperlipidemia Pitting edema Tinnitus Type 2 diabetes mellitus without complication, without long-term current use of insulin Weakness Surgical History Surgical History H/O heart bypass surgery 6 1996 History of appendectomy S/P coronary artery stent placement (2) 2016 (1) 2013 (2) 2012 (3) 2010 (1) 2009 ( 2) 1996 Family History Family History Mother Family history of dementia Father Family history of heart disease in male family member before age 55 Hyperlipidemia Son Acute myocardial infarction Social History Social History Social History: He lives with his . He had 2 children and his one son . 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 Surrogate decisionmaker: Meryl, spouse. Code status: Full code. Smoking packs per day: 1 Smoking cigarettes per day: 20.0 Years smoked: 30 Smoking pack-years: 30.00 Smoking status: Former smoker Tobacco type: cigarettes Second hand tobacco smoke exposure: No Alcohol intake: never Substance use: never Substance use type: does not use Do You Feel Safe in your Home?: Yes Lack of Transportation: No Lack of Food: Never True Current Housing: I Have Housing Concerned About Future Housing: No Difficulty Paying Gas/Electric Bills: No Difficulty Paying for Meds: No Currently Unemployed: No Education: High School Diploma/GED Difficulty w/ Childcare or Family Care: No Spiritual care concerns: No Meds Home Medications and Allergies Home Medications Medication Instructions Recorded Confirmed Type atorvastatin 80 mg tablet 80 mg PO DAILY 10/16/19 10/21/23 History carvedilol 12.5 mg tablet 12.5 mg PO Q12H 10/16/19 10/21/23 History clopidogrel 75 mg tablet 75 mg PO DAILY 10/16/19 10/21/23 History nitroglycerin 0.4 mg sublingual 0.4 mg sublingual Q5M PRN Chest 10/16/19 10/21/23 History tablet (Nitrostat) Pain lisinopril 20 1 tablet PO DAILY 12/19/21 10/21/23 History mg-hydrochlorothiazide 25 mg tablet aspirin 81 mg tablet,delayed 81 mg PO QAM #30 tabs 07/16/23 10/21/23 Rx release isosorbide mononitrate 60 mg 60 mg PO QAM #30 tabs 07/16/23 10/21/23 Rx tablet,extended release 24 hr ranolazine 500 mg tablet,extended 500 mg PO Q12H #60 tabs 07/16/23 10/21/23 Rx release,12 hr furosemide 20 mg tablet 20 mg PO DAILY 10/21/23 10/21/23 History memantine 5 mg tablet See Rx Instructions .Route 12/29/23 Rx .COMPLEX #200 tabs Allergies Allergy/AdvReac Type Severity Reaction Status Date / Time atenolol All
[2024-02-02] MEDS: ASPIRIN 81 MG CHEWABLE TABLET PO (09:02)
[2024-02-02] MEDS: HEPARIN SODIUM 5,000 UNITS/ML VIAL 5000 UNITS SUB-Q ×2 (09:02→20:46)
[2024-02-02 09:50] LABS: Magnesium 1.9 mg/dL (1.6-2.3)
[2024-02-02 10:03] LABS: Troponin I 0.033 ng/mL (0.000-0.034)
--- NOTE | 2024-02-02 10:05 | PM.CNCAR ---
Assessment and Plan Assessment and plan (1) Chest pain: Code(s): R07.9 - Chest pain, unspecified Status: Acute Assessment and Plan: Presented with brief chest pain that was not associated with exertion. Currently chest pain free. Troponins are 0.035, 0.040, 0.033, 0.033. The first two tropons are just slighlty above the upper limit of normal, however, subsequent troponins are negative. EKG on admission shows sinus rhythm with first-degree AV block, old septal infarct, nonspecific STTW abnormality. Unfortunately, since our EKG system went down in December 2023 (and continues to be down), I am not able to compare his current EKG with any of his previous EKGs as the old EKGs have been lost. Patient has known chronic stable infrequent angina. Patient had a PCP visit in October 2023, which states that he had recent hospitalization for chest pain, and cardiac catheterization revealed occlusion of 2 stents; medical management planned. However, I do not see the records from his enterostomal therapy nurse or that cardiac cath in our system. Recommend to obtain records from [facility]. At this time, it does not appear that patient is having an acute coronary syndrome. Does not need to be NPO from my standpoint. Resume home anti-anginal therapy, will uptitrate as tolerated. (2) Elevated troponin: Code(s): R77.8 - Other specified abnormalities of plasma proteins Status: Acute Assessment and Plan: As above (3) CAD (coronary artery disease): Qualifiers: Coronary Disease-Associated Artery/Lesion type: [place] artery [place] vs. transplanted heart: [place] heart Associated angina: with stable angina Qualified Code(s): I25.118 - Atherosclerotic heart disease of [place] coronary artery with other forms of angina pectoris Code(s): I25.10 - Atherosclerotic heart disease of [place] coronary artery without angina pectoris Status: Acute Assessment and Plan: As above. Continue home ASA, Plavix, statin, anti-anginal regimen. (4) Acute on chronic renal failure: Code(s): N17.9 - Acute kidney failure, unspecified; N18.9 - Chronic kidney disease, unspecified Status: Acute Assessment and Plan: As per primary team. (5) Mixed hyperlipidemia due to type 2 diabetes mellitus: Code(s): E11.69 - Type 2 diabetes mellitus with other specified complication; E78.2 - Mixed hyperlipidemia Status: Acute Assessment and Plan: Continue high intensity statin (6) Hypertension associated with type 2 diabetes mellitus: Code(s): E11.59 - Type 2 diabetes mellitus with other circulatory complications; I15.2 - Hypertension secondary to endocrine disorders Status: Acute Assessment and Plan: Stable. Continue home antihypertensive regimen. 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 (8) Dementia: Code(s): F03.90 - Unspecified dementia, unspecified severity, without behavioral disturbance, psychotic disturbance, mood disturbance, and anxiety Status: Acute History of Present Illness History of Present Illness Consult date/time: 02/02/24 10:05 Requesting physician: Elise Quintana, DIETICIAN Consult reason: Other (Chest pain, Elevated troponin) Reason For Visit: chest pain,elevated troponin Narrative: This is an 83 year old male with extensive coronary artery disease s/p 6V CABG and multiple stents, type 2 diabetes mellitus, hypertension, hy
[2024-02-02 16:22] LABS: Glucose Point of Care 97 mg/dl (65-105)
[2024-02-02 16:26] LABS: Glucose Point of Care 103 mg/dl (65-105)
[2024-02-02] MEDS: CLOPIDOGREL BISULFATE 75 MG TABLET PO (16:45)
[2024-02-02] MEDS: ISOSORBIDE MONONITRATE 30 MG TAB.ER.24H PO (16:46)
[2024-02-02] MEDS: MEMANTINE 5 MG TABLET PO (20:46)
[2024-02-02] MEDS: ATORVASTATIN 40 MG TABLET 80 MG PO (20:46)
[2024-02-02 21:42] LABS: Glucose Point of Care 156 mg/dl (65-105)
[2024-02-02] MEDS: RANOLAZINE 500 MG TAB.ER.12H PO (23:27)
[2024-02-03 04:50] VITALS: BP 131/87; PULSE 51; RESP 16; TEMP 36.9; O2SAT 96
[2024-02-03 07:21] LABS: Basophils Percent Auto 0.6 % (0.2-1.2); Eosinophils Absolute Auto 0.1 K/mm3 (0-0.3); Eosinophils Percent Auto 3.3 % (0-4.4); Hematocrit 34.6 % (42.0-52.0); Hemoglobin 11.2 g/dL (14.0-18.0); Immature Granulocyte Absolute 0.01 K/mm3 (0.00-0.031); Immature Granulocyte Percent A 0.3 % (0-0.5); Lymphocytes Absolute Auto 0.95 K/mm3 (0.9-3.2); Lymphocytes Percent Auto 26.3 % (18.3-44.2); Mean Corpuscular HGB Conc 32.4 g/dl (32-36); Mean Corpuscular Hemoglobin 31.5 pg (26-34); Mean Corpuscular Volume 97.5 fl (80-100); Mean Platelet Volume 12.1 fl (7.4-10.4); Monocytes Absolute Auto 0.3 K/mm3 (0.1-0.6); Monocytes Percent Auto 9.1 % (2.6-8.5); Neutrophils Absolute Auto 2.2 K/mm3 (1.3-6.7); Neutrophils Percent Auto 60.4 % (45.5-73.1); Platelet Count Result 127 k/mm3 (150-375); Red Blood Count 3.55 M/mm3 (4.6-6.20); White Blood Count 3.6 K/mm3 (4.5-10.0)
[2024-02-03 07:35] LABS: Alanine Aminotransferase 10 U/L (6-50); Alkaline Phosphatase 51 U/L (38-126); Anion Gap 1 mmol/L (4-12); Aspartate Amino Transferase 17 U/L (17-59); Bilirubin,Total 0.8 mg/dL (0.2-1.3); Blood Urea Nitrogen 12 mg/dL (9-20); Calcium 8.4 mg/dL (8.4-10.2); Carbon Dioxide 26 mmol/L (22-30); Chloride 112 mmol/L (98-107); Estimated CRCL calculation 35 ml/min; Estimated Glomerular Filt Rate 45; Glucose 91 mg/dL (65-110); Potassium 3.6 mmol/L (3.4-5.0); Sodium 139 mmol/L (137-145)
[2024-02-03 08:00] VITALS: PULSE 42
[2024-02-03 08:13] LABS: Glucose Point of Care 95 mg/dl (65-105)
[2024-02-03 08:28] VITALS: PULSE 44
[2024-02-03] MEDS: ASPIRIN 81 MG ENTERIC TABLET PO (08:43)
[2024-02-03] MEDS: CLOPIDOGREL BISULFATE 75 MG TABLET PO (08:43)
[2024-02-03] MEDS: ISOSORBIDE MONONITRATE 30 MG TAB.ER.24H PO (08:43)
[2024-02-03] MEDS: HEPARIN SODIUM 5,000 UNITS/ML VIAL 5000 UNITS SUB-Q (08:43)
[2024-02-03] MEDS: RANOLAZINE 500 MG TAB.ER.12H PO (08:43)
[2024-02-03] MEDS: MEMANTINE 5 MG TABLET PO (08:43)
--- NOTE | 2024-02-03 08:55 | P.PNIM_ITS ---
Progress Note: A&P Assessment and Plan (1) Mixed hyperlipidemia due to type 2 diabetes mellitus: Code(s): E11.69 - Type 2 diabetes mellitus with other specified complication; E78.2 - Mixed hyperlipidemia Status: Acute (2) Essential (primary) hypertension: Code(s): I10 - Essential (primary) hypertension Status: Acute (3) Chest pain: Code(s): R07.9 - Chest pain, unspecified Status: Acute (4) Elevated troponin: Code(s): R77.8 - Other specified abnormalities of plasma proteins Status: Acute (5) CAD (coronary artery disease): Qualifiers: Coronary Disease-Associated Artery/Lesion type: [place] artery [place] vs. transplanted heart: [place] heart Associated angina: with stable angina Qualified Code(s): I25.118 - Atherosclerotic heart disease of [place] coronary artery with other forms of angina pectoris Code(s): I25.10 - Atherosclerotic heart disease of [place] coronary artery without angina pectoris Status: Acute (6) Dementia: Code(s): F03.90 - Unspecified dementia, unspecified severity, without behavioral disturbance, psychotic disturbance, mood disturbance, and anxiety Status: Acute (7) Acute on chronic renal failure: Code(s): N17.9 - Acute kidney failure, unspecified; N18.9 - Chronic kidney disease, unspecified Status: Acute (8) Bradycardia: Code(s): R00.1 - Bradycardia, unspecified Status: Acute Plan Chest pain/Chronic stable Angina * Resumed Imdur, BB * HX CABG/CAD * serial troponins x3 q.6 hours 0.035, 0.040, 0.033 down trend * EKG Sinus calos without ischemic changes q.6 hours * cardiology consulted * Last echo 01/2023: Grade 1 diastolic dysfunction LVEF of 50-55% * NPO * continuous cardiac monitoring * cardiac risk factors: Heart score of 7 02/02: * resolved with nitro * restarted patient on Imdur * attempting to get result from [facility] on previous cardiac cath report CAD * CABG/Stents * resume BB, ASA, Statin, Plavix * attempting to get result from [facility] on previous cardiac cath report Bradycardia * cardiology consulted * cardiac monitoring * had started on Imdur * holding coreg will wait on recommendations from cardiology Diabetes * Accu-Cheks a.c. HS * sliding scale insulin * Not on home medication * pending goal less than 7 pending * Optimize Ryan inhibitors and statins. * Watch for hypoglycemia/hypoglycemic protocol ordered Acute on chronic renal failure * Stage 3 appears close to baseline * Gentle IV hydration. * Avoid nephrotoxic drugs. * Monitor antihypertensive drug therapy. * Avoid NSAIDs. * Routine CMP monitoring GFR. * Monitor electrolytes especially potassium. HX dementia: Resumed memantine HX: HTN: Resumed home medications Code status: Full code per patient DVT prophylaxis: Heparin Stress ulcer prophylaxis: Protonix 40 daily PT/OT notes: PT/OT pending Recs Disposition: Patient admitted for chest pain will have consult to cardiology for further recs, plan will be to return to home with when medically stable. Time Spent With Patient Time with patient: 15 - 25 minutes Subjective Date/time seen: 02/03/24 08:55 Interval history: Chest Pain Narrative: Patient is an 83-year-old male who presented to the emergency department with complaints chest pain.? Patient has an extensive medical history which includes CAD who had a CABG and stents,
--- NOTE | 2024-02-03 08:55 | PM.IMPN ---
Progress Note: A&P Assessment and Plan (1) Mixed hyperlipidemia due to type 2 diabetes mellitus: Code(s): E11.69 - Type 2 diabetes mellitus with other specified complication; E78.2 - Mixed hyperlipidemia Status: Acute (2) Essential (primary) hypertension: Code(s): I10 - Essential (primary) hypertension Status: Acute (3) Chest pain: Code(s): R07.9 - Chest pain, unspecified Status: Acute (4) Elevated troponin: Code(s): R77.8 - Other specified abnormalities of plasma proteins Status: Acute (5) CAD (coronary artery disease): Qualifiers: Coronary Disease-Associated Artery/Lesion type: [place] artery [place] vs. transplanted heart: [place] heart Associated angina: with stable angina Qualified Code(s): I25.118 - Atherosclerotic heart disease of [place] coronary artery with other forms of angina pectoris Code(s): I25.10 - Atherosclerotic heart disease of [place] coronary artery without angina pectoris Status: Acute (6) Dementia: Code(s): F03.90 - Unspecified dementia, unspecified severity, without behavioral disturbance, psychotic disturbance, mood disturbance, and anxiety Status: Acute (7) Acute on chronic renal failure: Code(s): N17.9 - Acute kidney failure, unspecified; N18.9 - Chronic kidney disease, unspecified Status: Acute (8) Bradycardia: Code(s): R00.1 - Bradycardia, unspecified Status: Acute Plan Chest pain/Chronic stable Angina Resumed Imdur, BB HX CABG/CAD serial troponins x3 q.6 hours 0.035, 0.040, 0.033 down trend EKG Sinus calos without ischemic changes q.6 hours cardiology consulted Last echo 01/2023: Grade 1 diastolic dysfunction LVEF of 50-55% NPO continuous cardiac monitoring cardiac risk factors: Heart score of 7 02/02: resolved with nitro restarted patient on Imdur attempting to get result from [facility] on previous cardiac cath report CAD CABG/Stents resume BB, ASA, Statin, Plavix attempting to get result from [facility] on previous cardiac cath report Bradycardia cardiology consulted cardiac monitoring had started on Imdur holding coreg will wait on recommendations from cardiology Diabetes Accu-Cheks a.c. HS sliding scale insulin Not on home medication pending goal less than 7 pending Optimize Ryan inhibitors and statins. Watch for hypoglycemia/hypoglycemic protocol ordered Acute on chronic renal failure Stage 3 appears close to baseline Gentle IV hydration. Avoid nephrotoxic drugs. Monitor antihypertensive drug therapy. Avoid NSAIDs. Routine CMP monitoring GFR. Monitor electrolytes especially potassium. HX dementia: Resumed memantine HX: HTN: Resumed home medications Code status: Full code per patient DVT prophylaxis: Heparin Stress ulcer prophylaxis: Protonix 40 daily PT/OT notes: PT/OT pending Recs Disposition: Patient admitted for chest pain will have consult to cardiology for further recs, plan will be to return to home with when medically stable. Time Spent With Patient Time with patient: 15 - 25 minutes Subjective Date/time seen: 02/03/24 08:55 Interval history: Chest Pain Narrative: Patient is an 83-year-old male who presented to the emergency department with complaints chest pain.? Patient has an extensive medical history which includes CAD who had a CABG and stents, HLD, HTN, dementia, anxiety disorder, aortic aneurysm, and untreated diabetes type II.? Initial assessment in the emergency department showed EKG with sinus Calos with no ischemic changes, mildly elevated troponin of 0.035 but trended down with a heart score 7. CXR showed mild pulmonary edema with minimal pleural effusion, hypertensive, and hyperglycemia otherwise labs unremarkable.? Patient did have a recent hospitalization with a cardiac catheterization that showed re-occlusion of 2 of the stents with no intervention
--- NOTE | 2024-02-03 10:12 | PM.PNCARD ---
Progress Note: A&P Assessment and Plan (1) Chest pain: Code(s): R07.9 - Chest pain, unspecified Status: Acute Assessment and Plan: Presented with brief chest pain that was not associated with exertion. Currently chest pain free. Troponins are 0.035, 0.040, 0.033, 0.033. The first two tropons are just slightly above the upper limit of normal, however, subsequent troponins are negative. EKG on admission shows sinus rhythm with first-degree AV block, old septal infarct, nonspecific STTW abnormality. Unfortunately, since our EKG system went down in December 2023 (and continues to be down), I am not able to compare his current EKG with any of his previous EKGs as the old EKGs have been lost. Patient has known chronic stable infrequent angina. reports he did have cardiac cath done in October 2023, does have blockages but planning for medical management since he already has a lot of stents. At this time, it does not appear that patient is having an acute coronary syndrome. Recommend aggressive medical management. Recommend to increase Imdur to 90mg. (2) Bradycardia: Code(s): R00.1 - Bradycardia, unspecified Status: Acute Assessment and Plan: Overnight, heart rates as low as 40s. Currently in the 50s. Agree with stopping Coreg. (3) Elevated troponin: Code(s): R77.8 - Other specified abnormalities of plasma proteins Status: Acute Assessment and Plan: As above (4) CAD (coronary artery disease): Qualifiers: Coronary Disease-Associated Artery/Lesion type: [place] artery [place] vs. transplanted heart: [place] heart Associated angina: with stable angina Qualified Code(s): I25.118 - Atherosclerotic heart disease of [place] coronary artery with other forms of angina pectoris Code(s): I25.10 - Atherosclerotic heart disease of [place] coronary artery without angina pectoris Status: Acute Assessment and Plan: As above. Continue home ASA, Plavix, statin, anti-anginal regimen. (5) Acute on chronic renal failure: Code(s): N17.9 - Acute kidney failure, unspecified; N18.9 - Chronic kidney disease, unspecified Status: Acute Assessment and Plan: As per primary team. (6) Mixed hyperlipidemia due to type 2 diabetes mellitus: Code(s): E11.69 - Type 2 diabetes mellitus with other specified complication; E78.2 - Mixed hyperlipidemia Status: Acute Assessment and Plan: Continue high intensity statin (7) Hypertension associated with type 2 diabetes mellitus: Code(s): E11.59 - Type 2 diabetes mellitus with other circulatory complications; I15.2 - Hypertension secondary to endocrine disorders Status: Acute Assessment and Plan: Continue home antihypertensive regimen. (8) Type 2 diabetes mellitus with renal manifestations: Qualifiers: Diabetes mellitus group home insulin use: without roasterman use Diabetes mellitus complication detail: with chronic kidney disease Chronic kidney disease stage: stage 3 (moderate) Qualified Code(s): E11.22 - Type 2 diabetes mellitus with diabetic chronic kidney disease; N18.3 - Chronic kidney disease, stage 3 (moderate) Code(s): E11.29 - Type 2 diabetes mellitus with other diabetic kidney complication Status: Acute Assessment and Plan: Management as per primary team. (9) Dementia: Code(s): F03.90 - Unspecified dementia, unspecified severity, without behavioral disturbance, psychotic disturbance, mood disturbance, and anxiety Status: Acute Plan Okay to discharge home from my standpoint. Patient to follow up with Dr. Iraheta at [facility]. Recommendations and plan discussed with Hospitalist. Time Spent With Patient Time with patient: 15 - 25 minutes Subjective Date/time seen: 02/03/24 10:12 Interval history: Reason for visit: Chest pain, elevated troponins HPI: This is an 83 year old male with extensive coronary artery disease s/p 6V CABG and
--- NOTE | 2024-02-03 11:43 | P.DS_ITS ---
DS: Admitting Diagnosis Discharge Date 02/03/2024 Admitting Diagnosis Chest Pain/angina DS: Discharge Diagnosis Discharge Diagnosis (1) Mixed hyperlipidemia due to type 2 diabetes mellitus: Code(s): E11.69 - Type 2 diabetes mellitus with other specified complication; E78.2 - Mixed hyperlipidemia Status: Acute (2) Essential (primary) hypertension: Code(s): I10 - Essential (primary) hypertension Status: Acute (3) Chest pain: Code(s): R07.9 - Chest pain, unspecified Status: Acute (4) Elevated troponin: Code(s): R77.8 - Other specified abnormalities of plasma proteins Status: Acute (5) CAD (coronary artery disease): Qualifiers: Associated angina: with stable angina Coronary Disease-Associated Artery/Lesion type: [place] artery [place] vs. transplanted heart: [place] heart Qualified Code(s): I25.118 - Atherosclerotic heart disease of [place] coronary artery with other forms of angina pectoris Code(s): I25.10 - Atherosclerotic heart disease of [place] coronary artery without angina pectoris Status: Acute (6) Dementia: Code(s): F03.90 - Unspecified dementia, unspecified severity, without behavioral disturbance, psychotic disturbance, mood disturbance, and anxiety Status: Acute (7) Acute on chronic renal failure: Code(s): N17.9 - Acute kidney failure, unspecified; N18.9 - Chronic kidney disease, uns pecified Status: Acute (8) Bradycardia: Code(s): R00.1 - Bradycardia, unspecified Status: Acute Plan Chest pain/Chronic stable Angina * Resumed Imdur, BB * HX CABG/CAD * serial troponins x3 q.6 hours 0.035, 0.040, 0.033 down trend * EKG Sinus calos without ischemic changes q.6 hours * cardiology consulted * Last echo 01/2023: Grade 1 diastolic dysfunction LVEF of 50-55% * NPO * continuous cardiac monitoring * cardiac risk factors: Heart score of 7 02/02: * resolved with nitro * restarted patient on Imdur * attempting to get result from [facility] on previous cardiac cath report CAD * CABG/Stents * resume BB, ASA, Statin, Plavix * attempting to get result from [facility] on previous cardiac cath report Bradycardia * cardiology consulted * cardiac monitoring * had started on Imdur * holding coreg will wait on recommendations from cardiology Diabetes * Accu-Cheks a.c. HS * sliding scale insulin * Not on home medication * pending goal less than 7 pending * Optimize Ryan inhibitors and statins. * Watch for hypoglycemia/hypoglycemic protocol ordered Acute on chronic renal failure * Stage 3 appears close to baseline * Gentle IV hydration. * Avoid nephrotoxic drugs. * Monitor antihypertensive drug therapy. * Avoid NSAIDs. * Routine CMP monitoring GFR. * Monitor electrolytes especially potassium. HX dementia: Resumed memantine HX: HTN: Resumed home medications Disposition: Patient was discharged to home plan to discontinue use of his Coreg and increase his Imdur from 60 to 90 daily patient to have follow-up with his career services officer as scheduled. DS: Summary Hospital Course Reason for hospitalization: Chest Pain/Angina Hospital Course: Chest Pain Narrative: Patient is an 83-year-old male who presented to the emergency department with complaints chest pain.? Patient has an extensive medical history which includes CAD who had a CABG and stents, HLD, HTN, dementia, anxiety disorder, aortic aneurysm, an
--- NOTE | 2024-02-03 11:43 | PM.DS ---
DS: Admitting Diagnosis Discharge Date 02/03/2024 Admitting Diagnosis Chest Pain/angina DS: Discharge Diagnosis Discharge Diagnosis (1) Mixed hyperlipidemia due to type 2 diabetes mellitus: Code(s): E11.69 - Type 2 diabetes mellitus with other specified complication; E78.2 - Mixed hyperlipidemia Status: Acute (2) Essential (primary) hypertension: Code(s): I10 - Essential (primary) hypertension Status: Acute (3) Chest pain: Code(s): R07.9 - Chest pain, unspecified Status: Acute (4) Elevated troponin: Code(s): R77.8 - Other specified abnormalities of plasma proteins Status: Acute (5) CAD (coronary artery disease): Qualifiers: Associated angina: with stable angina Coronary Disease-Associated Artery/Lesion type: [place] artery [place] vs. transplanted heart: [place] heart Qualified Code(s): I25.118 - Atherosclerotic heart disease of [place] coronary artery with other forms of angina pectoris Code(s): I25.10 - Atherosclerotic heart disease of [place] coronary artery without angina pectoris Status: Acute (6) Dementia: Code(s): F03.90 - Unspecified dementia, unspecified severity, without behavioral disturbance, psychotic disturbance, mood disturbance, and anxiety Status: Acute (7) Acute on chronic renal failure: Code(s): N17.9 - Acute kidney failure, unspecified; N18.9 - Chronic kidney disease, unspecified Status: Acute (8) Bradycardia: Code(s): R00.1 - Bradycardia, unspecified Status: Acute Plan Chest pain/Chronic stable Angina Resumed Imdur, BB HX CABG/CAD serial troponins x3 q.6 hours 0.035, 0.040, 0.033 down trend EKG Sinus calos without ischemic changes q.6 hours cardiology consulted Last echo 01/2023: Grade 1 diastolic dysfunction LVEF of 50-55% NPO continuous cardiac monitoring cardiac risk factors: Heart score of 7 02/02: resolved with nitro restarted patient on Imdur attempting to get result from [facility] on previous cardiac cath report CAD CABG/Stents resume BB, ASA, Statin, Plavix attempting to get result from [facility] on previous cardiac cath report Bradycardia cardiology consulted cardiac monitoring had started on Imdur holding coreg will wait on recommendations from cardiology Diabetes Accu-Cheks a.c. HS sliding scale insulin Not on home medication pending goal less than 7 pending Optimize Ryan inhibitors and statins. Watch for hypoglycemia/hypoglycemic protocol ordered Acute on chronic renal failure Stage 3 appears close to baseline Gentle IV hydration. Avoid nephrotoxic drugs. Monitor antihypertensive drug therapy. Avoid NSAIDs. Routine CMP monitoring GFR. Monitor electrolytes especially potassium. HX dementia: Resumed memantine HX: HTN: Resumed home medications Disposition: Patient was discharged to home plan to discontinue use of his Coreg and increase his Imdur from 60 to 90 daily patient to have follow-up with his construction sales manager as scheduled. DS: Summary Hospital Course Reason for hospitalization: Chest Pain/Angina Hospital Course: Chest Pain Narrative: Patient is an 83-year-old male who presented to the emergency department with complaints chest pain.? Patient has an extensive medical history which includes CAD who had a CABG and stents, HLD, HTN, dementia, anxiety disorder, aortic aneurysm, and untreated diabetes type II.? Initial assessment in the emergency department showed EKG with sinus Calos with no ischemic changes, mildly elevated troponin of 0.035 but trended down with a heart score 7. CXR showed mild pulmonary edema with minimal pleural effusion, hypertensive, and hyperglycemia otherwise labs unremarkable.? Patient did have a recent hospitalization with a cardiac catheterization that showed re-occlusion of 2 of the stents with no intervention and medical management.? Patient to be admitted for
[2024-02-03 11:46] LABS: Glucose Point of Care 108 mg/dl (65-105)
[2024-02-03 12:00] VITALS: PULSE 60
== END 2024-02-03 12:35 | disposition home or self-care (01) ==
LOC: ANHED 05:09 → ANHIMU 08:06 → ANH3MEDSUR 14:44 → ANHIMU 02-06 08:15
PROVIDERS: Nurse Practitioner Family; Admitting Provider Internal Medicine; Emergency Provider Emergency Medicine; PCP Nurse Practitioner; Visit Provider General Practice
DX: R07.9 Chest pain, unspecified (principal); R00.1 Bradycardia, unspecified; R79.89 Other specified abnormal findings of blood chemistry; N17.9 Acute kidney failure, unspecified; I25.2 Old myocardial infarction; I12.9 Hypertensive chronic kidney disease with stage 1 through stage 4 chronic kidney disease, or unspecified chronic kidney disease; E11.22 Type 2 diabetes mellitus with diabetic chronic kidney disease; N18.30 Chronic kidney disease, stage 3 unspecified; F41.9 Anxiety disorder, unspecified; I25.118 Atherosclerotic heart disease of native coronary artery with other forms of angina pectoris; E78.2 Mixed hyperlipidemia; F03.90 Unspecified dementia, unspecified severity, without behavioral disturbance, psychotic disturbance, mood disturbance, and anxiety; H40.9 Unspecified glaucoma; I71.40 Abdominal aortic aneurysm, without rupture, unspecified; M10.9 Gout, unspecified; Z95.1 Presence of aortocoronary bypass graft; Z95.5 Presence of coronary angioplasty implant and graft; Z79.02 Long term (current) use of antithrombotics/antiplatelets; Z87.891 Personal history of nicotine dependence; Z79.82 Long term (current) use of aspirin
CPT/HCPCS: 36415; 71046; 80053; 82948; 83036; 83690; 83735; 84484; 85025; 85610; 85730; 93005; 96361; 96372; 96374; 99285; A9270; G0378; J1644; J2270; J7030

== ENCOUNTER 2024-02-04 02:43 | Observation (INO) | payer MEDICARE, SELFPAY ==
[2024-02-04] VITALS (17 sets, daily range): BP systolic 135–198; BP diastolic 58–92; PULSE 49–86; RESP 16–25; TEMP 36.5–36.9; O2SAT 96–100; BMI 25.1
--- NOTE | ~2024-02-04 | XR_ITS ---
EXAMINATION: XR chest 1V DATE: 02/04/2024 03:19 INDICATION: Altered mental status. TECHNIQUE: A single frontal view of the chest was obtained. COMPARISON: Chest 2 views 02/02/2024 FINDINGS: There are airspace opacities in all lung zones bilaterally with a perihilar predominance. T here is a diffuse interstitial pattern. No pleural effusion or pneumothorax. Cardiomegaly is noted. M edian sternotomy wires and mediastinal surgical clips are seen, likely from prior coronary artery byp ass grafting. IMPRESSION: 1. Worsening diffuse lung disease, likely moderate pulmonary edema. 2. Cardiomegaly. Reviewed, dictated and finalized at location A.
--- NOTE | ~2024-02-04 | CT_ITS ---
EXAMINATION: CT brain wo con DATE: 02/04/2024 03:13 INDICATION: Altered mental status. TECHNIQUE: Computed tomography (CT) of the head was performed without intravenous contrast. The mA wa s adjusted according to patient size. Iterative reconstruction technique was employed. The dose-lengt h product was 681.00 mGy-cm. COMPARISON: Head CT 12/02/2023 FINDINGS: There is no intracranial hemorrhage, acute infarction, or abnormal intracranial mass lesion . There are scattered areas of low attenuation in the cerebral white matter, which is within normal l imits for the patient's age. The ventricles are normal in size. There is mild mucosal thickening in the paranasal sinuses. The mastoid air cells are normal. There are likely changes of ocular lens repl acement surgeries. There is a hemangioma in left parietal bone. IMPRESSION: 1. Normal brain. Reviewed, dictated and finalized at location A. IMPRESSION: 1. Normal brain.
--- NOTE | 2024-02-04 02:50 | ED.CHESTPAIN ---
HPI - Chest Pain General Chief Complaint: Chest Pain Stated Complaint: chest pain Time Seen by Provider: 02/04/24 02:47 History of Present Illness HPI narrative: 83-year-old male present to the emergency department for evaluation for chest pain. Patient was just discharged from hospital on 02/02. Patient woke his up stating he was having chest pain. states that after the patient got discharged he had a normal evening and went bed. states that he woke up stating he was having SOB and flopped onto the bed. When EMS arrived patient was nonverbal. Upon arrival emergency department patient is nonverbal but does respond to adverse stimuli does say yes and no to questions. When asked if he was having a current chest pain patient stated no. states last known normal prior to going to bed was 10:00 p.m.. Related Data Home Medications Medication Instructions Recorded Confirmed atorvastatin 80 mg tablet 80 mg PO HS 10/16/19 02/07/24 clopidogrel 75 mg tablet 75 mg PO DAILY 10/16/19 02/07/24 nitroglycerin 0.4 mg sublingual 0.4 mg sublingual Q5M PRN Chest 10/16/19 02/07/24 tablet (Nitrostat) Pain furosemide 20 mg tablet 20 mg PO DAILY 10/21/23 02/07/24 Allergies Allergy/AdvReac Type Severity Reaction Status Date / Time atenolol Allergy Severe Nausea,slow Verified 02/07/24 09:49 heart rate Iodinated Contrast Media Allergy Severe heart Verified 02/07/24 09:49 stopped Review of Systems Review of Systems: All systems reviewed & are unremarkable except as noted in HPI and below PMFSH Past Medical History Medical History Aortic aneurysm ASHD (arteriosclerotic heart disease) Dementia Essential (primary) hypertension Glaucoma Gout Mixed hyperlipidemia Pitting edema Tinnitus Type 2 diabetes mellitus without complication, without long-term current use of insulin Weakness Surgical History Surgical History H/O heart bypass surgery 1996 History of appendectomy S/P coronary artery stent placement (2) 2016 (1) 2013 (2) 2012 (3) 2010 (1) 2009 ( 2) 1996 Family History Family History Mother Family history of dementia Father Family history of heart disease in male family member before age 55 Hyperlipidemia Son Acute myocardial infarction Social History Social History Social History: He lives with his . He had 2 children and his one son . 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 Surrogate decisionmaker: Meryl, spouse. Code status: Full code. Smoking packs per day: 1 Smoking cigarettes per day: 20.0 Years smoked: 30 Smoking pack-years: 30.00 Smoking status: Former smoker Tobacco type: cigarettes Second hand tobacco smoke exposure: No Additional smoking assessment comments: distant history of smoking Alcohol intake: never Substance use: never Substance use type: does not use Do You Feel Safe in your Home?: No Lack of Transportation: No Lack of Food: Never True Current Housing: I Have Housing Concerned About Future Housing: No Difficulty Paying Gas/Electric Bills: No Difficulty Paying for Meds: No Currently Unemployed: No Education: Decline to Answer Difficulty w/ Childcare or Family Care: No Spiritual care concerns: No Exam Narrative: APPEARANCE: Well appearing, no pain, no distress, well-nourished. HEAD: normocephalic, atraumatic. EYES: PERRLA/EOMI, conjunctivae clear. NOSE: Normal no drainage EARS:TMS clear with good light reflex. THROAT: Pharynx clear, no exudate. NECK: Supple. No adenopathy, no masses. RESPIRATORY: Airway patent, respirations nonlabored. Clear to auscultation bilaterally, no rales, rhonchi, wheezing. CARDIOVASCULAR: Regular rate and rhythm without m
--- NOTE | 2024-02-04 02:51 | ECG_ITS ---
SEE SCANNED COPY FOR CONFIRMED REPORT MTDD
[2024-02-04] MEDS: NALOXONE HCL 0.4 MG/ML VIAL IV PUSH (02:53)
[2024-02-04 03:04] LABS: Alveolar/Arterial O2 Gradient 37.5 mmHg; Base Excess ABG -1.3 mEq/l (+/-2.0); Carboxyhemoglobin 0.2 % THb (0-2.0); Device ROOM AIR; Fractional Inspired Oxygen 21 %; HCO3 ABG 22.4 mEq/l (22.0-26.0); Methemoglobin ABG 0.1 %THb (0-1.5); Oxygen Content ABG 16.6 %vol (16.0-22.0); Oxygen Saturation ABG 94.9 % (95.0-100.0); Oxyhemoglobin 93.6 % THb (90.0-100.0); PCO2 ABG 34.4 mmHg (35.0-45.0); PO2 FiO2 Ratio Arterial Blood 3.38 %; Reduced Hemoglobin 6.1 %THb (0-5.0); Site Drawn RIGHT BRACHIAL; Total Hemoglobin 12.6 g/dL (12.0-18.0); pH ABG 7.432 (7.350-7.450)
[2024-02-04 03:05] LABS: Basophils Percent Auto 0.8 % (0.2-1.2); Eosinophils Absolute Auto 0.2 K/mm3 (0-0.3); Eosinophils Percent Auto 4.5 % (0-4.4); Hematocrit 36.8 % (42.0-52.0); Hemoglobin 12.2 g/dL (14.0-18.0); Lymphocytes Absolute Auto 1.19 K/mm3 (0.9-3.2); Lymphocytes Percent Auto 33.6 % (18.3-44.2); Mean Corpuscular HGB Conc 33.2 g/dl (32-36); Mean Corpuscular Hemoglobin 31.5 pg (26-34); Mean Corpuscular Volume 95.1 fl (80-100); Mean Platelet Volume 11.6 fl (7.4-10.4); Monocytes Absolute Auto 0.4 K/mm3 (0.1-0.6); Monocytes Percent Auto 9.9 % (2.6-8.5); Neutrophils Absolute Auto 1.8 K/mm3 (1.3-6.7); Neutrophils Percent Auto 51.2 % (45.5-73.1); Platelet Count Result 152 k/mm3 (150-375); Red Blood Count 3.87 M/mm3 (4.6-6.20); Red Cell Distribution Width 14.4 % (11.5-14.5); White Blood Count 3.5 K/mm3 (4.5-10.0)
[2024-02-04 03:16] LABS: Alanine Aminotransferase 12 U/L (6-50); Albumin Level 3.7 g/dL (3.5-5.1); Alkaline Phosphatase 68 U/L (38-126); Anion Gap 3 mmol/L (4-12); Aspartate Amino Transferase 21 U/L (17-59); Bilirubin,Total 0.5 mg/dL (0.2-1.3); Blood Urea Nitrogen 20 mg/dL (9-20); Calcium 8.9 mg/dL (8.4-10.2); Carbon Dioxide 24 mmol/L (22-30); Chloride 112 mmol/L (98-107); Estimated CRCL calculation 34 ml/min; Estimated Glomerular Filt Rate 42; Glucose 118 mg/dL (65-110); Prothrombin Time 13.6 Seconds (11.1-14.7); Sodium 139 mmol/L (137-145)
[2024-02-04 03:17] LABS: Lactic Acid Reflex 1.7 mmol/L (0.7-2.0)
[2024-02-04 03:20] LABS: Partial Thromboplastin Time 27.1 Seconds (22.3-36.8)
[2024-02-04 03:28] LABS: Troponin I 0.034 ng/mL (0.000-0.034)
[2024-02-04 03:29] LABS: Appearance Urine Clear (Clear); Bilirubin Urine Negative (Negative); Blood Urine Negative (Negative); Color Urine Yellow (Yellow); Glucose Urine UA Negative (Negative); Ketones Urine Negative (Negative); Leukocyte Esterase Ur Negative LEU/UL (Negative); Nitrate Urine Negative (Negative); Protein Urine Negative (Negative); Specific Grav Ur 1.014 (1.001-1.035); Urobilinogen Urine 0.2 mg/dL (<2.0)
[2024-02-04 03:32] LABS: NT Pro B Type Natriuretic Pept 931 pg/mL (19.9-100)
[2024-02-04 03:56] LABS: Add Urine Microscopic? NO
[2024-02-04 05:09] LABS: Influenza A QL RT-PCR Negative (Negative); Influenza B QL RT-PCR Negative (Negative); RSV RNA, RT-PCR Negative (Negative); SARS-CoV-2 RNA PCR Negative (Negative)
[2024-02-04] MEDS: AMPICILLIN SULB 1.5 GM/NS 50ML 1.5 GM/50 ML VIAL IVPB ×2 (05:19→10:02)
--- NOTE | 2024-02-04 06:20 | PC.NURSE ---
This patient, Tony Menezes Jr., was admitted to IMU Room 201-01. Patient/family oriented to hospital policies and general routines including ID bracelet, bed and alarms, visiting hours, pain management, procedures, bathroom and other care routines, personal items, smoking policy, room service/diet, and visiting hours. Information on how to activate the Rapid Response Team has been discussed. Patient/Family are encouraged to report perceived risks to care and to ask questions if they do not understand what they are told or what they should do.
--- NOTE | 2024-02-04 07:05 | PM.IMHP ---
H&P: HPI History of Present Illness Date/Time: 02/04/24 07:05 Chief Complaint: AMS/chest Pain Narrative: Patient is an 83-year-old male who presented to the emergency department with complaints chest pain earlier in the evening was discharged earlier that day with chronic stable angina.? However reports patient became nonverbal with altered mental status when he laid down to go to bed around 10:00 P.M. this evening. According to the ER note patient was more alert on arrival and was able to answer yes and no questions. Patient has an extensive medical history which includes CAD who had a CABG and stents, HLD, HTN, dementia, anxiety disorder, aortic aneurysm, and untreated diabetes type II.? . Initial findings in the ED had a negative CT head with normal brain, CXR showed mild pulmonary edema with minimal pleural effusion, slightly elevated BP, Bradycarydia unchanged from previous EKG and hypertensive, otherwise labs unremarkable.? Patient upon discharged was started on an increased dose of Imdur and his Coreg discontinued. Patient was also recently hospitalized at [facility] with a cardiac catheterization that showed re-occlusion of 2 of the stents with no intervention and medical management.? Patient to be admitted for further evaluation of transient alert mental status possible TIA. On assessment patient was alert and oriented and answering questions appropriately but did not know or remember how he got here. Review of Systems Review of Systems: All systems reviewed & are unremarkable except as noted in HPI and below PMFSH Past Medical History Medical History Aortic aneurysm ASHD (arteriosclerotic heart disease) Dementia Essential (primary) hypertension Glaucoma Gout Mixed hyperlipidemia Pitting edema Tinnitus Type 2 diabetes mellitus without complication, without long-term current use of insulin Weakness Surgical History Surgical History H/O heart bypass surgery 6 1996 History of appendectomy S/P coronary artery stent placement (2) 2016 (1) 2013 (2) 2012 (3) 2011 (1) 2009 ( 2) 1996 Family History Family History Mother Family history of dementia Father Family history of heart disease in male family member before age 55 Hyperlipidemia Son Acute myocardial infarction Social History Social History Social History: He lives with his . He had 2 children and his one son . 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 Surrogate decisionmaker: Meryl, spouse. Code status: Full code. Smoking packs per day: 1 Smoking cigarettes per day: 20.0 Years smoked: 30 Smoking pack-years: 30.00 Smoking status: Former smoker Tobacco type: cigarettes Second hand tobacco smoke exposure: No Additional smoking assessment comments: distant history of smoking Alcohol intake: never Substance use: never Substance use type: does not use Do You Feel Safe in your Home?: No Lack of Transportation: No Lack of Food: Never True Current Housing: I Have Housing Concerned About Future Housing: No Difficulty Paying Gas/Electric Bills: No Difficulty Paying for Meds: No Currently Unemployed: No Education: Decline to Answer Difficulty w/ Childcare or Family Care: No Spiritual care concerns: No Meds Home Medications and Allergies Home Medications Medication Instructions Recorded Confirmed Type atorvastatin 80 mg tablet 80 mg PO HS 10/16/19 02/04/24 History clopidogrel 75 mg tablet 75 mg PO DAILY 10/16/19 02/04/24 History nitroglycerin 0.4 mg sublingual 0.4 mg sublingual Q5M PRN Chest 10/16/19 02/04/24 History tablet (Nitrostat) Pain aspirin 81 mg tablet,delayed 81 mg PO QAM #30 tabs 07/16/23 02/04/24 Rx release
[2024-02-04] MEDS: CLOPIDOGREL BISULFATE 75 MG TABLET PO (09:48)
[2024-02-04] MEDS: MEMANTINE 5 MG TABLET PO ×2 (09:48→17:08)
[2024-02-04] MEDS: PANTOPRAZOLE 40 MG TABLET PO (09:48)
[2024-02-04] MEDS: FUROSEMIDE 20 MG TABLET PO (09:48)
[2024-02-04] MEDS: RANOLAZINE 500 MG TAB.ER.12H PO ×2 (09:48→21:53)
[2024-02-04] MEDS: ASPIRIN 81 MG ENTERIC TABLET PO (09:49)
[2024-02-04] MEDS: lisinopriL 10 MG TABLET PO (09:49)
[2024-02-04] MEDS: ISOSORBIDE MONONITRATE 30 MG TAB.ER.24H 90 MG PO (09:52)
--- NOTE | 2024-02-04 20:08 | PC.NURSE ---
This patient, Tony Menezes Jr., was transferred to [facility] on 02/04/24 at 1529. Personal belongings sent with patient. Report given to DORI Petersen. Appropriate documentation sent with patient.
[2024-02-04] MEDS: ATORVASTATIN 40 MG TABLET 80 MG PO (21:40)
[2024-02-05] VITALS: BP 138/47; PULSE 46; PULSE 47; RESP 18; TEMP 36.9; O2SAT 98
[2024-02-05 04:00] VITALS: BP 151/55; PULSE 153; PULSE 58; RESP 18; TEMP 36.6; O2SAT 96
[2024-02-05 05:22] LABS: Basophils Percent Auto 0.6 % (0.2-1.2); Eosinophils Absolute Auto 0.2 K/mm3 (0-0.3); Eosinophils Percent Auto 4.2 % (0-4.4); Hematocrit 34.6 % (42.0-52.0); Hemoglobin 11.4 g/dL (14.0-18.0); Immature Granulocyte Absolute 0.01 K/mm3 (0.00-0.031); Immature Granulocyte Percent A 0.3 % (0-0.5); Lymphocytes Absolute Auto 0.88 K/mm3 (0.9-3.2); Lymphocytes Percent Auto 24.5 % (18.3-44.2); Mean Corpuscular HGB Conc 32.9 g/dl (32-36); Mean Corpuscular Hemoglobin 31.7 pg (26-34); Mean Corpuscular Volume 96.1 fl (80-100); Mean Platelet Volume 12.2 fl (7.4-10.4); Monocytes Absolute Auto 0.4 K/mm3 (0.1-0.6); Monocytes Percent Auto 10.3 % (2.6-8.5); Neutrophils Absolute Auto 2.2 K/mm3 (1.3-6.7); Neutrophils Percent Auto 60.1 % (45.5-73.1); Platelet Count Result 145 k/mm3 (150-375); White Blood Count 3.6 K/mm3 (4.5-10.0)
[2024-02-05 05:33] LABS: Magnesium 1.9 mg/dL (1.6-2.3)
[2024-02-05 08:00] VITALS: PULSE 49
[2024-02-05 09:02] VITALS: BP 184/68; PULSE 62; O2SAT 100
[2024-02-05] MEDS: PANTOPRAZOLE 40 MG TABLET PO (09:04)
[2024-02-05] MEDS: lisinopriL 20 MG TABLET PO (09:04)
[2024-02-05] MEDS: MEMANTINE 5 MG TABLET PO (09:04)
[2024-02-05] MEDS: ASPIRIN 81 MG ENTERIC TABLET PO (09:04)
[2024-02-05] MEDS: CLOPIDOGREL BISULFATE 75 MG TABLET PO (09:05)
[2024-02-05] MEDS: FUROSEMIDE 20 MG TABLET PO (09:05)
[2024-02-05] MEDS: RANOLAZINE 500 MG TAB.ER.12H PO (09:05)
--- NOTE | 2024-02-05 10:20 | P.DS_ITS ---
DS: Admitting Diagnosis Discharge Date 02/05/2024 Admitting Diagnosis TIA DS: Discharge Diagnosis Discharge Diagnosis (1) AMS (altered mental status): Code(s): R41.82 - Altered mental status, unspecified Status: Acute (2) Chest pain: Code(s): R07.9 - Chest pain, unspecified Status: Acute (3) Bradycardia: Code(s): R00.1 - Bradycardia, unspecified Status: Acute (4) Acute on chronic renal failure: Code(s): N17.9 - Acute kidney failure, unspecified; N18.9 - Chronic kidney disease, unspecified Status: Acute (5) Mixed hyperlipidemia due to type 2 diabetes mellitus: Code(s): E11.69 - Type 2 diabetes mellitus with other specified complication; E78.2 - Mixed hyperlipidemia Status: Acute (6) Hypertension associated with type 2 diabetes mellitus: Code(s): E11.59 - Type 2 diabetes mellitus with other circulatory complications; I15.2 - Hypertension secondary to endocrine disorders Status: Acute (7) Essential (primary) hypertension: Code(s): I10 - Essential (primary) hypertension Status: Acute (8) CAD (coronary artery disease): Qualifiers: Associated angina: with stable angina Coronary Disease-Associated Artery/Lesion type: [place] artery [place] vs. transplanted heart: [place] heart Qualified Code(s): I25.118 - Atherosclerotic heart disease of [place] coronary artery with other forms of angina pectoris Code(s): I25.10 - Atherosclerotic heart disease of [place] coronary artery without angina pectoris Status: Acute (9) Cognitive impairment: Code(s): R41.89 - Other symptoms and signs involving cognitive functions and awareness Status: Acute (10) Dementia: Code(s): F03.90 - Unspecified dementia, unspecified severity, without behavioral disturbance, psychotic disturbance, mood disturbance, and anxiety Status: Acute Plan Plan Transient alerted awareness/TIA? * CT Head negative * MRI pending * Neuro checks * EKG unchanged * Resumed Plavix, ASA, statin * HX of Dementia Chest pain/Chronic stable Angina * Resumed Imdur, BB * ?HX CABG/CAD * serial troponins x3 q.6 hours 0.035, 0.040, 0.033 down trend 02/01-02/02 * EKG Sinus calos without ischemic changes q.6 hours * Last echo 01/2023:? Grade 1 diastolic dysfunction LVEF of 50-55% * continuous cardiac monitoring * restarted patient on Imdur increased to 90mg daily previous admission CAD * CABG/Stents * resume BB, ASA, Statin, Plavix Bradycardia * cardiology consulted * cardiac monitoring * had started on Imdur * Coreg had been discontinued 02/02 Diabetes * ?Accu-Cheks a.c. HS * sliding scale insulin * Not on home medication * Optimize Ryan inhibitors and statins.? * Watch for hypoglycemia/hypoglycemic protocol ordered Acute on chronic renal failure * Stage 3 appears close to baseline * ?Gentle IV hydration.? * Avoid nephrotoxic drugs.? * Monitor antihypertensive drug therapy.? * Avoid NSAIDs.? * Routine CMP monitoring GFR.? * Monitor electrolytes especially potassium.? HX dementia: Resumed memantine HX: HTN: Resumed home medications Disposition:?Patient discharged to home with DS: Summary Hospital Course Reason for hospitalization: Possible TIA Hospital Course: Chief Complaint: AMS/chest Pain Narrative: Patient is an 83-year-old male who presented to the emergency department wi
--- NOTE | 2024-02-05 10:20 | PM.DS ---
DS: Admitting Diagnosis Discharge Date 02/05/2024 Admitting Diagnosis TIA DS: Discharge Diagnosis Discharge Diagnosis (1) AMS (altered mental status): Code(s): R41.82 - Altered mental status, unspecified Status: Acute (2) Chest pain: Code(s): R07.9 - Chest pain, unspecified Status: Acute (3) Bradycardia: Code(s): R00.1 - Bradycardia, unspecified Status: Acute (4) Acute on chronic renal failure: Code(s): N17.9 - Acute kidney failure, unspecified; N18.9 - Chronic kidney disease, unspecified Status: Acute (5) Mixed hyperlipidemia due to type 2 diabetes mellitus: Code(s): E11.69 - Type 2 diabetes mellitus with other specified complication; E78.2 - Mixed hyperlipidemia Status: Acute (6) Hypertension associated with type 2 diabetes mellitus: Code(s): E11.59 - Type 2 diabetes mellitus with other circulatory complications; I15.2 - Hypertension secondary to endocrine disorders Status: Acute (7) Essential (primary) hypertension: Code(s): I10 - Essential (primary) hypertension Status: Acute (8) CAD (coronary artery disease): Qualifiers: Associated angina: with stable angina Coronary Disease-Associated Artery/Lesion type: [place] artery [place] vs. transplanted heart: [place] heart Qualified Code(s): I25.118 - Atherosclerotic heart disease of [place] coronary artery with other forms of angina pectoris Code(s): I25.10 - Atherosclerotic heart disease of [place] coronary artery without angina pectoris Status: Acute (9) Cognitive impairment: Code(s): R41.89 - Other symptoms and signs involving cognitive functions and awareness Status: Acute (10) Dementia: Code(s): F03.90 - Unspecified dementia, unspecified severity, without behavioral disturbance, psychotic disturbance, mood disturbance, and anxiety Status: Acute Plan Plan Transient alerted awareness/TIA? CT Head negative MRI pending Neuro checks EKG unchanged Resumed Plavix, ASA, statin HX of Dementia Chest pain/Chronic stable Angina Resumed Imdur, BB ?HX CABG/CAD serial troponins x3 q.6 hours 0.035, 0.040, 0.033 down trend 02/01-02/02 EKG Sinus calos without ischemic changes q.6 hours Last echo 01/2023:? Grade 1 diastolic dysfunction LVEF of 50-55% continuous cardiac monitoring restarted patient on Imdur increased to 90mg daily previous admission CAD CABG/Stents resume BB, ASA, Statin, Plavix Bradycardia cardiology consulted cardiac monitoring had started on Imdur Coreg had been discontinued 02/02 Diabetes ?Accu-Cheks a.c. HS sliding scale insulin Not on home medication Optimize Ryan inhibitors and statins.? Watch for hypoglycemia/hypoglycemic protocol ordered Acute on chronic renal failure Stage 3 appears close to baseline ?Gentle IV hydration.? Avoid nephrotoxic drugs.? Monitor antihypertensive drug therapy.? Avoid NSAIDs.? Routine CMP monitoring GFR.? Monitor electrolytes especially potassium.? HX dementia: Resumed memantine HX: HTN: Resumed home medications Disposition:?Patient discharged to home with DS: Summary Hospital Course Reason for hospitalization: Possible TIA Hospital Course: Chief Complaint: AMS/chest Pain Narrative: Patient is an 83-year-old male who presented to the emergency department with complaints chest pain earlier in the evening was discharged earlier that day with chronic stable angina.? However reports patient became nonverbal with altered mental status when he laid down to go to bed around 10:00 P.M. this evening. According to the ER note patient was more alert on arrival and was able to answer yes and no questions.? Patient has an extensive medical history which includes CAD who had a CABG and stents, HLD, HTN, dementia, anxiety disorder, aortic aneurysm, and untreated diabetes type II.? . Initial findings in the ED had a negat
== END 2024-02-05 10:55 | disposition home or self-care (01) ==
LOC: ANHED 03:03 → ANHIMU 06:21 → ANH2MED 02-05 10:20 → ANHIMU 02-06 14:39
PROVIDERS: Nurse Practitioner Family; Admitting Provider Internal Medicine; Emergency Provider Emergency Medicine; PCP Nurse Practitioner; Visit Provider General Practice
DX: R07.9 Chest pain, unspecified (principal); R41.82 Altered mental status, unspecified; R00.1 Bradycardia, unspecified; N17.9 Acute kidney failure, unspecified; J81.1 Chronic pulmonary edema; I12.9 Hypertensive chronic kidney disease with stage 1 through stage 4 chronic kidney disease, or unspecified chronic kidney disease; E11.22 Type 2 diabetes mellitus with diabetic chronic kidney disease; N18.9 Chronic kidney disease, unspecified; R06.00 Dyspnea, unspecified; I71.9 Aortic aneurysm of unspecified site, without rupture; I25.118 Atherosclerotic heart disease of native coronary artery with other forms of angina pectoris; F03.90 Unspecified dementia, unspecified severity, without behavioral disturbance, psychotic disturbance, mood disturbance, and anxiety; E78.2 Mixed hyperlipidemia; H40.9 Unspecified glaucoma; R41.89 Other symptoms and signs involving cognitive functions and awareness; M10.9 Gout, unspecified; Z20.822 Contact with and (suspected) exposure to COVID-19; Z79.02 Long term (current) use of antithrombotics/antiplatelets; Z95.1 Presence of aortocoronary bypass graft; Z95.5 Presence of coronary angioplasty implant and graft; Z87.891 Personal history of nicotine dependence; E11.69 Type 2 diabetes mellitus with other specified complication; E11.59 Type 2 diabetes mellitus with other circulatory complications
CPT/HCPCS: 36415; 36600; 70450; 71045; 80053; 81003; 82375; 82805; 83050; 83605; 83735; 83880; 84484; 85025; 85610; 85730; 87040; 87637; 93005; 96365; 96375; 99285; A9270; G0378; J0295; J2310

== ENCOUNTER 2024-03-27 13:35 | Observation (INO) | payer MEDICARE, SELFPAY ==
[2024-03-27] VITALS (13 sets, daily range): BP systolic 156–187; BP diastolic 61–85; PULSE 57–73; RESP 13–18; TEMP 36.3–36.6; O2SAT 96–100; BMI 25.3
--- NOTE | ~2024-03-27 | XR_ITS ---
XR chest 2V 03/27/2024 14:20 Indication: Chest pain and weakness Procedure: AP view of the chest Comparison: Comparison to multiple prior studies sequentially, with oldest reviewed study dated 11/01. Findings: Status post median sternotomy for CABG. There is a coronary artery stent. Cardiomegaly. No focal air space disease, pulmonary edema, pleural effusion or suspected pneumothorax. Moderate thorac ic spondylosis. Impression: 1: No acute cardiopulmonary disease. Reviewed, dictated and finalized at location B. Impression: 1: No acute cardiopulmonary disease.
--- NOTE | 2024-03-27 13:40 | ECG_ITS ---
Test Date: 2024-03-27 13:38:03 Measurements Intervals [place] Rate: 70 P: 27 RI: 232 QRS: -46 QRSD: 103 T: 94 QT: 397 QTc: 431 Interpretive Statements SINUS RHYTHM WITH FIRST DEGREE AV BLOCK WITH OCCASIONAL VENTRICULAR PREMATURE COMPLEXES LEFT ANTERIOR FASCICULAR BLOCK ANTEROSEPTAL INFARCT, AGE INDETERMINATE BORDERLINE ST-T WAVE ABNORMALITY- LAT/HIGH LAT LEADS ABNORMAL ECG BASELINE ARTIFACT- I, II, III, AVR, AVF, V1 No previous ECG available for comparison Electronically Signed On 03-27-2024 13:43:27 CDT by Fernando Canales D.O.
[2024-03-27 13:52] LABS: Basophils Percent Auto 0.5 % (0.2-1.2); Eosinophils Absolute Auto 0.1 K/mm3 (0-0.3); Eosinophils Percent Auto 3.2 % (0-4.4); Hematocrit 36.2 % (42.0-52.0); Hemoglobin 12.1 g/dL (14.0-18.0); Immature Granulocyte Absolute 0.01 K/mm3 (0.00-0.031); Immature Granulocyte Percent A 0.2 % (0-0.5); Lymphocytes Absolute Auto 1.61 K/mm3 (0.9-3.2); Lymphocytes Percent Auto 36.3 % (18.3-44.2); Mean Corpuscular HGB Conc 33.4 g/dl (32-36); Mean Corpuscular Hemoglobin 31.9 pg (26-34); Mean Corpuscular Volume 95.5 fl (80-100); Mean Platelet Volume 11.6 fl (7.4-10.4); Monocytes Absolute Auto 0.4 K/mm3 (0.1-0.6); Monocytes Percent Auto 8.1 % (2.6-8.5); Neutrophils Absolute Auto 2.3 K/mm3 (1.3-6.7); Neutrophils Percent Auto 51.7 % (45.5-73.1); Platelet Count Result 175 k/mm3 (150-375); Red Blood Count 3.79 M/mm3 (4.6-6.20); Red Cell Distribution Width 13.2 % (11.5-14.5); White Blood Count 4.4 K/mm3 (4.5-10.0)
[2024-03-27 14:07] LABS: INR 1.1; Prothrombin Time 14.4 Seconds (11.1-14.7)
[2024-03-27 14:08] LABS: Partial Thromboplastin Time 27.7 Seconds (22.3-36.8)
[2024-03-27 14:18] LABS: Alanine Aminotransferase 15 U/L (6-50); Albumin Level 3.6 g/dL (3.5-5.1); Alkaline Phosphatase 91 U/L (38-126); Anion Gap 9 mmol/L (4-12); Aspartate Amino Transferase 21 U/L (17-59); Bilirubin,Total 0.3 mg/dL (0.2-1.3); Blood Urea Nitrogen 16 mg/dL (9-20); Calcium 8.7 mg/dL (8.4-10.2); Carbon Dioxide 25 mmol/L (22-30); Chloride 104 mmol/L (98-107); Estimated CRCL calculation 34 ml/min; Estimated Glomerular Filt Rate 45; Glucose 154 mg/dL (65-110); Lipase 270 U/L (23-300); Potassium 3.7 mmol/L (3.4-5.0); Sodium 138 mmol/L (137-145); Troponin I 0.052 ng/mL (0.000-0.034)
[2024-03-27] MEDS: ASPIRIN 81 MG CHEWABLE TABLET 324 MG PO (14:27)
--- NOTE | 2024-03-27 16:21 | ECG_ITS ---
Test Date: 2024-03-27 16:58:53 Measurements Intervals [place] Rate: 64 P: 0 VT: 0 QRS: -41 QRSD: 114 T: 86 QT: 452 QTc: 467 Interpretive Statements SINUS RHYTHM WITH 2ND DEGREE AV BLOCK, MOBITZ TYPE I LEFT AXIS DEVIATION LOW QRS VOLTAGE IN PRECORDIAL LEADS LEFT VENTRICULAR HYPERTROPHY WITH ST-T CHANGE ANTEROSEPTAL MYOCARDIAL INFARCTION , OF INDETERMINATE AGE ABNORMAL ECG Compared to ECG 03/27/2024 13:38:03 SECOND DEGREE AV BLOCK NOW PRESENT Electronically Signed On 03-27-2024 18:35:43 CDT by Fernando Canales D.O.
--- NOTE | 2024-03-27 16:40 | ED.CHESTPAIN ---
HPI - Chest Pain General Chief Complaint: Chest Pain Stated Complaint: CP, becoming unresponsive Time Seen by Provider: 03/27/24 14:32 History of Present Illness HPI narrative: This is an 83-year-old male, with history of coronary artery disease status post 6 vessel CABG, who presents to the emergency department complaining of chest pain. Patient states he was standing, at rest when he felt quick onset left-sided chest pain, described as pressure-like and rated 7/10. He states this feels similar to previous episodes of [place]. He took a sublingual nitroglycerin with improvement. He has no other complaints at this time. Related Data Home Medications Medication Instructions Recorded Confirmed atorvastatin 80 mg tablet 80 mg PO HS 10/16/19 02/07/24 clopidogrel 75 mg tablet 75 mg PO DAILY 10/16/19 02/07/24 nitroglycerin 0.4 mg sublingual 0.4 mg sublingual Q5M PRN Chest 10/16/19 02/07/24 tablet (Nitrostat) Pain furosemide 20 mg tablet 20 mg PO DAILY 10/21/23 02/07/24 Allergies Allergy/AdvReac Type Severity Reaction Status Date / Time atenolol Allergy Severe Nausea,slow Verified 02/07/24 09:49 heart rate Iodinated Contrast Media Allergy Severe heart Verified 02/07/24 09:49 stopped Review of Systems Review of Systems: All systems reviewed & are unremarkable except as noted in HPI and below PMFSH Past Medical History Medical History Aortic aneurysm ASHD (arteriosclerotic heart disease) Dementia Essential (primary) hypertension Glaucoma Gout Mixed hyperlipidemia Pitting edema Tinnitus Type 2 diabetes mellitus without complication, without long-term current use of insulin Weakness Surgical History Surgical History H/O heart bypass surgery 6 1996 History of appendectomy S/P coronary artery stent placement (2) 2016 (1) 2013 (2) 2012 (3) 2010 (1) 2009 ( 2) 1996 Family History Family History Mother Family history of dementia Father Family history of heart disease in male family member before age 55 Hyperlipidemia Son Acute myocardial infarction Social History Social History Social History: He lives with his . He had 2 children and his one son . 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 Surrogate decisionmaker: Meryl, spouse. Code status: Full code. Smoking packs per day: 1 Smoking cigarettes per day: 20.0 Years smoked: 30 Smoking pack-years: 30.00 Smoking status: Former smoker Tobacco type: cigarettes Second hand tobacco smoke exposure: No Additional smoking assessment comments: distant history of smoking Alcohol intake: never Substance use: never Substance use type: does not use Do You Feel Safe in your Home?: No Lack of Transportation: No Lack of Food: Never True Current Housing: I Have Housing Concerned About Future Housing: No Difficulty Paying Gas/Electric Bills: No Difficulty Paying for Meds: No Currently Unemployed: No Education: Decline to Answer Difficulty w/ Childcare or Family Care: No Spiritual care concerns: No Exam Narrative: GENERAL: Well-developed, well-nourished, and in no acute distress. HEAD: Normocephalic, atraumatic. EYES: PERRLA and EOMI. CHEST: Clear to auscultation. No respiratory distress. No wheezes rales or rhonchi HEART: Regular rate and rhythm. No murmur heard. Normal peripheral pulses. ABDOMEN: Soft, nontender, nondistended, normal active bowel sounds. EXTREMITIES: Normal range of motion. No edema. SKIN: Warm, dry, no rash. NEURO: Alert and oriented x3. No focal deficit. Moving all 4 limbs spontaneously PSYCH: Normal mood and affect. Course Course Emergency Course: 16:21 - Hemoglobin 12.1 with WBC of 4.4. Creatinine at baseline of 1.5. I
[2024-03-27 17:24] LABS: Troponin I 0.075 ng/mL (0.000-0.034)
[2024-03-27 20:29] LABS: Troponin I 0.213 ng/mL (0.000-0.034)
--- NOTE | 2024-03-27 20:37 | ECG_ITS ---
Test Date: 2024-03-27 20:47:29 Measurements Intervals [place] Rate: 52 P: -16 VT: 260 QRS: -35 QRSD: 109 T: 157 QT: 446 QTc: 418 Interpretive Statements SINUS BRADYCARDIA WITH SECOND DEGREE AV BLOCK, TYPE I VENTRICULAR PREMATURE COMPLEXES LEFT AXIS DEVIATION LOW QRS VOLTAGE IN PRECORDIAL LEADS LEFT VENTRICULAR HYPERTROPHY WITH ST-T CHANGE CANNOT R/O SEPTAL INFARCT, AGE INDETERMINATE ABNORMAL ECG Compared to ECG 03/27/2024 16:58:53 HEART RATE HAS DECREASED Electronically Signed On 03-28-2024 06:06:16 CDT by Fernando Canales D.O.
--- NOTE | 2024-03-27 21:17 | ADMGEN ---
This patient, Tony Menezes Jr., was admitted to IMU Room 231-01. Patient/family oriented to hospital policies and general routines including ID bracelet, bed and alarms, visiting hours, pain management, procedures, bathroom and other care routines, personal items, smoking policy, room service/diet, and visiting hours. Information on how to activate the Rapid Response Team has been discussed. Patient/Family are encouraged to report perceived risks to care and to ask questions if they do not understand what they are told or what they should do.
--- NOTE | 2024-03-27 22:46 | PM.IMHP ---
H&P: HPI History of Present Illness Date/Time: 03/27/24 22:46 Chief Complaint: Chest pain Narrative: Patient 83-year-old male history of coronary artery disease status post CABG 6 vessel few years ago presented to emergency room complaining of midsternal chest pain nonradiating. Patient states the pain quickly got better when he took nitroglycerin. He felt like pressure in the middle this chest rating 7/10 no dizziness no nausea no vomiting no headaches. Patient is compliant with medications currently on Plavix and aspirin.. No diarrhea no nausea no hematemesis hemoptysis no sore throat no headaches Review of Systems Review of Systems: All systems reviewed & are unremarkable except as noted in HPI and below PMFSH Past Medical History Medical History Aortic aneurysm ASHD (arteriosclerotic heart disease) Dementia Essential (primary) hypertension Glaucoma Gout Mixed hyperlipidemia Pitting edema Tinnitus Type 2 diabetes mellitus without complication, without long-term current use of insulin Weakness Surgical History Surgical History H/O heart bypass surgery 1996 History of appendectomy S/P coronary artery stent placement (2) 2016 (1) 2013 (2) 2012 (3) 2010 (1) 2009 ( 2) 1996 Family History Family History Mother Family history of dementia Father Family history of heart disease in male family member before age 55 Hyperlipidemia Son Acute myocardial infarction Social History Social History Social History: He lives with his . He had 2 children and his one son . 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 Surrogate decisionmaker: Meryl, spouse. Code status: Full code. Smoking packs per day: 1 Smoking cigarettes per day: 20.0 Years smoked: 30 Smoking pack-years: 30.00 Smoking status: Former smoker Tobacco type: cigarettes Second hand tobacco smoke exposure: No Additional smoking assessment comments: distant history of smoking Alcohol intake: never Substance use: never Substance use type: does not use Do You Feel Safe in your Home?: Yes Lack of Transportation: No Lack of Food: Never True Current Housing: Decline to Answer Concerned About Future Housing: No Difficulty Paying Gas/Electric Bills: No Difficulty Paying for Meds: No Currently Unemployed: No Education: Decline to Answer Difficulty w/ Childcare or Family Care: No Spiritual care concerns: No Meds Home Medications and Allergies Home Medications Medication Instructions Recorded Confirmed Type atorvastatin 80 mg tablet 80 mg PO HS 10/16/19 03/27/24 History clopidogrel 75 mg tablet 75 mg PO DAILY 10/16/19 03/27/24 History nitroglycerin 0.4 mg sublingual 0.4 mg sublingual Q5M PRN Chest 10/16/19 03/27/24 History tablet (Nitrostat) Pain aspirin 81 mg tablet,delayed 81 mg PO QAM #30 tabs 07/16/23 03/27/24 Rx release ranolazine 500 mg tablet,extended 500 mg PO Q12H #60 tabs 07/16/23 03/27/24 Rx release,12 hr furosemide 20 mg tablet 20 mg PO DAILY 10/21/23 03/27/24 History isosorbide mononitrate 30 mg 90 mg PO DAILY #270 tabs 02/07/24 03/27/24 Rx tablet,extended release 24 hr lisinopril 20 mg tablet 20 mg PO DAILY #90 tabs 02/07/24 03/27/24 Rx memantine 5 mg tablet 5 mg PO BID #180 tabs 02/07/24 03/27/24 Rx potassium chloride 10 mEq 10 meq PO DAILY 03/27/24 03/27/24 History tablet,extended release Allergies Allergy/AdvReac Type Severity Reaction Status Date / Time atenolol Allergy Severe Nausea,slow Verified 02/07/24 09:49 heart rate Iodinated Contrast Media Allergy Severe heart Verified 02/07/24 09:49 stopped Vital Signs Vital Signs - 24 hr 03/27/24 13:49 03/27/24 14:00 03/27/24 13:51 Temperat
[2024-03-27 23:25] LABS: Hemoglobin 12.7 g/dL (14.0-18.0); Mean Corpuscular HGB Conc 33.4 g/dl (32-36); Mean Corpuscular Volume 95.7 fl (80-100); Mean Platelet Volume 11.7 fl (7.4-10.4); Platelet Count Result 142 k/mm3 (150-375); Red Blood Count 3.97 M/mm3 (4.6-6.20); Red Cell Distribution Width 13.1 % (11.5-14.5); White Blood Count 3.8 K/mm3 (4.5-10.0)
[2024-03-27 23:38] LABS: Alanine Aminotransferase 14 U/L (6-50); Albumin Level 3.4 g/dL (3.5-5.1); Alkaline Phosphatase 70 U/L (38-126); Anion Gap 7 mmol/L (4-12); Aspartate Amino Transferase 20 U/L (17-59); Bilirubin,Total 0.5 mg/dL (0.2-1.3); Blood Urea Nitrogen 14 mg/dL (9-20); Calcium 8.4 mg/dL (8.4-10.2); Carbon Dioxide 23 mmol/L (22-30); Chloride 111 mmol/L (98-107); Estimated CRCL calculation 36 ml/min; Estimated Glomerular Filt Rate 49; Glucose 119 mg/dL (65-110); Potassium 3.8 mmol/L (3.4-5.0); Sodium 141 mmol/L (137-145)
[2024-03-27 23:49] LABS: Cholesterol 130 mg/dL (0-200); HDL Direct 39 mg/dL; Triglycerides 71 mg/dL (<150)
[2024-03-28] VITALS (10 sets, daily range): BP systolic 148–188; BP diastolic 62–82; PULSE 53–83; RESP 12–18; TEMP 36.7–37.2; O2SAT 95–99
[2024-03-28] LABS: LDL Cholesterol Direct 83 mg/dL
--- NOTE | 2024-03-28 | ECHO_ITS ---
Patient Info Name: Tony Menezes Age: 83 years : 1940 Gender: Male Ht: 68 in Wt: 166 lbs BSA: 1.91 m2 HR: 61 bpm BP: 169 / 76 mmHg Heart Rhythm: Sinus Rhythm Technical Quality: Fair Exam Date: 03/28/2024 8:34 AM Exam Location: Echo Lab Patient Status: Outpatient Admit Date: 03/27/2024 Staff Ordering Physician: Gamal Moreira MD Design Tech: Roselia Jose RDCS Attending Provider: Leila Rios MD Exam Type: CA echo doppler color flow Study Info Indications - CHF Complete two-dimensional, color flow and Doppler transthoracic echocardiogram is performed. Summary 1. Complete two-dimensional, color flow and Doppler transthoracic echocardiogram is performed. 2. Left ventricular chamber dimension is mildly enlarged. 3. Left ventricular systolic function is mildly reduced, estimated at 45-50%. 4. There is mildly increased left ventricular wall thickness. 5. The left ventricular diastolic function is grade I diastolic dysfunction. 6. The inferior wall, inferoseptal wall, mid anteroseptal, and mid inferolateral wall are hypokinetic. 7. Left atrial chamber dimension is mildly enlarged. 8. The mitral valve has thickened leaflets. 9. There is mild mitral valve regurgitation. Left Ventricle Left ventricular chamber dimension is mildly enlarged. Left ventricular systolic function is mildly reduced, estimated at 45-50%. There is mildly increased left ventricular wall thickness. The left ventricular diastolic function is grade I diastolic dysfunction. The inferior wall, inferoseptal wall, mid anteroseptal, and mid inferolateral wall are hypokinetic. All other garnett appear normal. Right Ventricle Right ventricular chamber dimension is normal. Right ventricular systolic function is normal. Left Atria Left atrial chamber dimension is mildly enlarged. Right Atria Right atrial chamber dimension is normal. Atrial Septum Intact interatrial septum visualized by color flow imaging. Aortic Valve The aortic valve is trileaflet. There is mild aortic valve sclerosis. There is no aortic valve stenosis. There is trace aortic valve regurgitation. Pulmonic Valve The pulmonic valve is normal. There is no pulmonic valve stenosis. There is trace pulmonic regurgitation. Mitral Valve The mitral valve has thickened leaflets. There is no mitral valve stenosis. There is mild mitral valve regurgitation. Tricuspid Valve The tricuspid valve leaflets are normal. There is no significant tricuspid valve stenosis. There is trace tricuspid valve regurgitation. Pericardium/Pleural The pericardium appears normal. There is no pericardial effusion. Inferior Vena Cava Normal inferior vena cava with >50% collapse upon inspiration consistent with normal right atrial pressure, 8 mmHg. Aorta The aortic root size at the sinus of Valsalva is mildly dilated. Left Ventricular Outflow Tract Name Value Normal LVOT 2D LVOT Diameter 2.0 cm LVOT Doppler LVOT Peak Gradient 3 mmHg LVOT Mean Gradient 1 mmHg LVOT VTI 16 cm LVOT VTI/AV VTI Ratio 0.8 LVOT Stroke Volume
[2024-03-28] MEDS: RANOLAZINE 500 MG TAB.ER.12H PO ×2 (00:02→09:07)
[2024-03-28 05:17] LABS: Basophils Percent Auto 0.5 % (0.2-1.2); Eosinophils Absolute Auto 0.1 K/mm3 (0-0.3); Eosinophils Percent Auto 2.5 % (0-4.4); Hematocrit 37.2 % (42.0-52.0); Hemoglobin 12.7 g/dL (14.0-18.0); Immature Granulocyte Absolute 0.01 K/mm3 (0.00-0.031); Immature Granulocyte Percent A 0.2 % (0-0.5); Lymphocytes Absolute Auto 1.11 K/mm3 (0.9-3.2); Lymphocytes Percent Auto 25.3 % (18.3-44.2); Mean Corpuscular HGB Conc 34.1 g/dl (32-36); Mean Corpuscular Hemoglobin 32.1 pg (26-34); Mean Corpuscular Volume 93.9 fl (80-100); Mean Platelet Volume 11.6 fl (7.4-10.4); Monocytes Absolute Auto 0.4 K/mm3 (0.1-0.6); Monocytes Percent Auto 8.4 % (2.6-8.5); Neutrophils Absolute Auto 2.8 K/mm3 (1.3-6.7); Neutrophils Percent Auto 63.1 % (45.5-73.1); Platelet Count Result 148 k/mm3 (150-375); Red Blood Count 3.96 M/mm3 (4.6-6.20); White Blood Count 4.4 K/mm3 (4.5-10.0)
[2024-03-28 05:33] LABS: Anion Gap 4 mmol/L (4-12); Blood Urea Nitrogen 12 mg/dL (9-20); Calcium 8.6 mg/dL (8.4-10.2); Carbon Dioxide 24 mmol/L (22-30); Chloride 111 mmol/L (98-107); Estimated CRCL calculation 39 ml/min; Estimated Glomerular Filt Rate 53; Glucose 104 mg/dL (65-110); Potassium 3.8 mmol/L (3.4-5.0); Sodium 139 mmol/L (137-145)
[2024-03-28] MEDS: hydrALAZINE HCL 25 MG TABLET PO ×2 (09:07→12:28)
[2024-03-28] MEDS: MEMANTINE 5 MG TABLET PO (09:07)
[2024-03-28] MEDS: lisinopriL 20 MG TABLET PO (09:07)
[2024-03-28] MEDS: PANTOPRAZOLE 40 MG TABLET PO (09:07)
[2024-03-28] MEDS: ASPIRIN 81 MG ENTERIC TABLET PO (09:07)
[2024-03-28] MEDS: ISOSORBIDE MONONITRATE 30 MG TAB.ER.24H 90 MG PO (09:07)
[2024-03-28] MEDS: CLOPIDOGREL BISULFATE 75 MG TABLET PO (09:07)
--- NOTE | 2024-03-28 11:53 | PM.IMPN ---
Progress Note: A&P Assessment and Plan (1) Non-STEMI (non-ST elevated myocardial infarction): Code(s): I21.4 - Non-ST elevation (NSTEMI) myocardial infarction Status: Acute Plan Patient 83-year-old male history of coronary artery disease status post CABG 6 vessel few years ago presented to emergency room complaining of midsternal chest pain nonradiating. Patient states the pain quickly got better when he took nitroglycerin. He felt like pressure in the middle this chest rating 7/10 no dizziness no nausea no vomiting no headaches. Patient is compliant with medications currently on Plavix and aspirin.. (1) Non-STEMI (non-ST elevated myocardial infarction): Code(s): I21.4 - Non-ST elevation (NSTEMI) myocardial infarction Status: Acute (2) Chest pain: Qualifiers: Chest pain type: unspecified Qualified Code(s): R07.9 - Chest pain, unspecified Code(s): R07.9 - Chest pain, unspecified Status: Acute (3) Acute dyspnea: Code(s): R06.00 - Dyspnea, unspecified Status: Acute (4) ASHD (arteriosclerotic heart disease): Code(s): I25.10 - Atherosclerotic heart disease of [place] coronary artery without angina pectoris Status: Acute (5) Type 2 diabetes mellitus with renal manifestations: Qualifiers: Diabetes mellitus terminal computer operator insulin use: without terminal computer operator use Diabetes mellitus complication detail: with chronic kidney disease Chronic kidney disease stage: stage 3 (moderate) Qualified Code(s): E11.22 - Type 2 diabetes mellitus with diabetic chronic kidney disease; N18.3 - Chronic kidney disease, stage 3 (moderate) Code(s): E11.29 - Type 2 diabetes mellitus with other diabetic kidney complication Status: Acute -CAD/non STEMI/positive troponin patient's symptoms are typical chest pain with worse on exertion, concerning for ACS -elevated troponins will continue trending troponins Continue Plavix and aspirin No beta-blockers patient has allergies to atenolol -continue telemetry, EKG showed may be early repolarization -cardiology consulted -prn Nitroglycerin, oxygen, morphine, aspirin -checking lipid panel and hemoglobin A1c Spoke to patient's family and patient agreed for DNR 7/10: Patient has no chest pain, appreciate cardiology consultation Chief Dietitian recommends:Continue medical management with ASA, Plavix, Imdur 90mg, Ranolazine. Will avoid beta blockers due to intermittent Wenckebach. Can consider adding calcium channel sagar. Can increase Imdur if needed. Outpatient follow up with patient's primary associate professor of archaeology, Dr. Iraheta. CKD stage IIIA cause medication/diabetes/hypertension serum creatinine 1.5 Hold Lasix continue gentle hydration Avoid nephrotoxic drugs. Monitor antihypertensive drug therapy. Avoid NSAIDs. Routine CMP monitoring GFR. Monitor electrolytes especially potassium. Pharmacy does medications. 03/28 creatinine is trending down, 1.3 today, kidney function stable, follow with primary care doctor History of dementia continue memantine. History of hyperlipidemia, continue Lipitor. History of hypertension continue lisinoprill will add hydralazine, and amlodipine 5 mg daily p.o. follow-up primary care doctor DVT prophylaxis. Plavix aspirin/SCDs GI prophylaxis. Protonix All records reviewed Discussed plan of care with the nursing staff and with the patient in detail. Answered all questions and concerns from the patient. All labs have been reviewed. Code status updated Subjective Date/time seen: 03/28/24 11:53 Interval history: I saw examined the patient today in presents of patient's , patient denies chest pain, shortness breast, cough, abdomen pain, nausea vomiting diarrhea dysuria. Patient afebrile, blood pressure stable Exam Narrative: GENERAL: Pleasant, in no acute distress. Well-nourished. - EYES: EOMI. Anicteric. - HENT: Moist mucous membranes. - LUNGS: Clear to
--- NOTE | 2024-03-28 13:38 | PM.CNCAR ---
Assessment and Plan Assessment and plan (1) Chest pain: Qualifiers: Chest pain type: unspecified Qualified Code(s): R07.9 - Chest pain, unspecified Code(s): R07.9 - Chest pain, unspecified Status: Acute Assessment and Plan: No further chest pain. Details regarding the episode of chest pain he had prior to admission is unclear as patient cannot remember having any chest pain (patient has dementia). Continue medical management with ASA, Plavix, Imdur 90mg, Ranolazine. Will avoid beta blockers due to intermittent Wenckebach. Can consider adding calcium channel sagar. Can increase Imdur if needed. Outpatient follow up with patient's primary front office developer, Dr. Iraheta. (2) Mixed hyperlipidemia due to type 2 diabetes mellitus: Code(s): E11.69 - Type 2 diabetes mellitus with other specified complication; E78.2 - Mixed hyperlipidemia Status: Acute Assessment and Plan: Continue high intensity statin. (3) Hypertension associated with type 2 diabetes mellitus: Code(s): E11.59 - Type 2 diabetes mellitus with other circulatory complications; I15.2 - Hypertension secondary to endocrine disorders Status: Acute Assessment and Plan: Continue Lisinopril. Started on Hydralazine by Hospitalist team, however, would prefer patient to not be on Hydralazine as it is not a first line agent. Can increase Lisinopril if needed or add calcium channel sagar (4) Type 2 diabetes mellitus with renal manifestations: Qualifiers: Diabetes mellitus terminal worker insulin use: without mcc use Diabetes mellitus complication detail: with chronic kidney disease Chronic kidney disease stage: stage 3 (moderate) Qualified Code(s): E11.22 - Type 2 diabetes mellitus with diabetic chronic kidney disease; N18.3 - Chronic kidney disease, stage 3 (moderate) Code(s): E11.29 - Type 2 diabetes mellitus with other diabetic kidney complication Status: Acute Assessment and Plan: Management as per primary team. (5) CAD (coronary artery disease): Qualifiers: Coronary Disease-Associated Artery/Lesion type: [place] artery Teller vs. transplanted heart: [place] heart Associated angina: with stable angina Qualified Code(s): I25.118 - Atherosclerotic heart disease of [place] coronary artery with other forms of angina pectoris Code(s): I25.10 - Atherosclerotic heart disease of [place] coronary artery without angina pectoris Status: Acute Assessment and Plan: Continue with medical management as noted above. Plan Okay to discharge home from my standpoint. Can follow up with his primary front office developer Dr. Irhaeta as an outpatient. History of Present Illness History of Present Illness Consult date/time: 03/28/24 13:38 Requesting physician: Gamal Moreria MD Consult reason: chest pain Reason For Visit: CHEST PAIN Narrative: This is an 83 year old male with extensive coronary artery disease s/p 6V CABG and multiple stents, type 2 diabetes mellitus, hypertension, hyperlipidemia, dementia. His primary front office developer is Dr. Iraheta with [facility]. Patient had a recent cardiac catheterization which revealed occlusion of 2 stents; medical management planned. Per patient's at bedside, they recently saw his front office developer a few days ago -- states that no further coronary intervention can be done; plan to continue with medical management. Patient presented to [facility] for evaluation of chest pain. Given his dementia, patient does not recall having chest pain. He states he feels fine and wants to go home. states that she had gone out of the house and when she got back, she had found out that patient had called EMS. She also noticed that he had not taken any of his medications for the day. states that she normally organizes the pills for him and separates it by day, but with patient's dementia, he forgot to take them. reports that patient's Lisinopril was recently incre
--- NOTE | 2024-03-28 15:16 | PM.DS ---
DS: Admitting Diagnosis Discharge Date 11/26 Admitting Diagnosis (1) Non-STEMI (non-ST elevated myocardial infarction): Code(s): I21.4 - Non-ST elevation (NSTEMI) myocardial infarction Status: Acute (2) Chest pain: Qualifiers: Chest pain type: unspecified Qualified Code(s): R07.9 - Chest pain, unspecified Code(s): R07.9 - Chest pain, unspecified Status: Acute (3) Acute dyspnea: Code(s): R06.00 - Dyspnea, unspecified Status: Acute (4) ASHD (arteriosclerotic heart disease): Code(s): I25.10 - Atherosclerotic heart disease of [place] coronary artery without angina pectoris Status: Acute (5) Type 2 diabetes mellitus with renal manifestations: Qualifiers: DS: Discharge Diagnosis Discharge Diagnosis (1) Non-STEMI (non-ST elevated myocardial infarction): Code(s): I21.4 - Non-ST elevation (NSTEMI) myocardial infarction Status: Acute DS: Summary Hospital Course Hospital Course: Patient 83-year-old male history of coronary artery disease status post CABG 6 vessel few years ago presented to emergency room complaining of midsternal chest pain nonradiating. Patient states the pain quickly got better when he took nitroglycerin. He felt like pressure in the middle this chest rating 7/10 no dizziness no nausea no vomiting no headaches. Patient is compliant with medications currently on Plavix and aspirin.. The following med issues have been addressed during hospitalization (1) Non-STEMI (non-ST elevated myocardial infarction): Code(s): I21.4 - Non-ST elevation (NSTEMI) myocardial infarction Status: Acute (2) Chest pain: Qualifiers: Chest pain type: unspecified Qualified Code(s): R07.9 - Chest pain, unspecified Code(s): R07.9 - Chest pain, unspecified Status: Acute (3) Acute dyspnea: Code(s): R06.00 - Dyspnea, unspecified Status: Acute (4) ASHD (arteriosclerotic heart disease): Code(s): I25.10 - Atherosclerotic heart disease of [place] coronary artery without angina pectoris Status: Acute -CAD/non STEMI/positive troponin patient's symptoms are typical chest pain with worse on exertion, concerning for ACS -elevated troponins will continue trending troponins Continue Plavix and aspirin -continue telemetry, EKG showed may be early repolarization -cardiology consulted -prn Nitroglycerin, oxygen, morphine, aspirin -checking lipid panel and hemoglobin A1c Spoke to patient's family and patient agreed for DNR 03/28: Patient has no chest pain, appreciate cardiology consultation Binitrotoluene Operator recommends:Continue medical management with ASA, Plavix, Imdur 90mg, Ranolazine. Will avoid beta blockers due to intermittent Wenckebach. Can consider adding calcium channel sagar. Can increase Imdur if needed. Outpatient follow up with patient's primary router operator radial, Dr. Iraheta. CKD stage IIIA cause medication/diabetes/hypertension serum creatinine 1.5 Hold Lasix continue gentle hydration Avoid nephrotoxic drugs. Monitor antihypertensive drug therapy. Avoid NSAIDs. Routine CMP monitoring GFR. Monitor electrolytes especially potassium. Pharmacy does medications. 03/28 creatinine is trending down, 1.3 today, kidney function stable, follow with primary care doctor History of dementia continue memantine. History of hyperlipidemia, continue Lipitor. History of hypertension continue lisinoprill will add hydralazine, and amlodipine 5 mg daily p.o. follow-up primary care doctor Type 2 diabetes mellitus with renal manifestations: not on meds, well controled, f/u PCP in the office Status: Acute Hospital course is uneventful, patient condition stable on discharge. Time Spent with Patient Time attestation: Total time spent providing and/or coordinating discharge services: Exam Narrative: GENERAL: Pleasant, in no acute distress. Well-nourished. - EYE
== END 2024-03-28 16:28 | disposition home or self-care (01) ==
LOC: ANHED 16:43 → ANHIMU 21:18
PROVIDERS: Internal Medicine; Admitting Provider Family Medicine; Emergency Provider Preventive Medicine Aerospace Medicine; PCP Nurse Practitioner; Visit Provider Hospitalist
DX: I21.4 Non-ST elevation (NSTEMI) myocardial infarction (principal); R06.00 Dyspnea, unspecified; I12.9 Hypertensive chronic kidney disease with stage 1 through stage 4 chronic kidney disease, or unspecified chronic kidney disease; E11.22 Type 2 diabetes mellitus with diabetic chronic kidney disease; N18.31 Chronic kidney disease, stage 3a; I25.10 Atherosclerotic heart disease of native coronary artery without angina pectoris; F03.90 Unspecified dementia, unspecified severity, without behavioral disturbance, psychotic disturbance, mood disturbance, and anxiety; E78.2 Mixed hyperlipidemia; H40.9 Unspecified glaucoma; M10.9 Gout, unspecified; Z95.5 Presence of coronary angioplasty implant and graft; Z95.1 Presence of aortocoronary bypass graft; Z79.02 Long term (current) use of antithrombotics/antiplatelets; Z87.891 Personal history of nicotine dependence
CPT/HCPCS: 36415; 71046; 80048; 80053; 80061; 83690; 84484; 85025; 85027; 85610; 85730; 93005; 93306; 99285; A9270; G0378

== ENCOUNTER 2024-05-19 11:58 | Inpatient (IN) | payer MEDICARE, SELFPAY ==
[2024-05-19] VITALS (15 sets, daily range): BP systolic 110–146; BP diastolic 76–91; PULSE 82–99; RESP 14–31; TEMP 35–36.7; O2SAT 87–97; BMI 26.2
--- NOTE | ~2024-05-19 | XR_ITS ---
XR chest 1V portable 05/19/2024 12:28 Indication: Sternum. Mid chest pain. Procedure: AP portable chest Comparison: Comparison to multiple prior studies sequentially, with oldest reviewed study dated 02/01. Findings: Status post median sternotomy for CABG. Moderate cardiomegaly. There is pulmonary edema. No significant effusion or pneumothorax. Impression: 1: Cardiomegaly with pulmonary edema. Reviewed, dictated and finalized at location B. Impression: 1: Cardiomegaly with pulmonary edema.
--- NOTE | ~2024-05-19 | CT_ITS ---
EXAMINATION: CT abdomen pelvis wo con DATE: 05/19/2024 13:41 INDICATION: Epigastric pain TECHNIQUE: Computed tomography (CT) of the abdomen and pelvis was performed without intravenous contr ast. The dose-length product was 679.09 mGy-cm. Automated exposure control and iterative reconstructi on technique were employed. COMPARISON: CT dated 06/08/2010. FINDINGS: Moderate pleural effusions. Heart size normal. There is bilateral interstitial infiltrates which may represent edema or pneumonia. Gallstones. Atrophic right kidney. Bilateral renal cysts. Non obstructive bowel gas pattern. Moderate lower thoracic and lumbar spondylosis. Levoscoliosis. The nam er, spleen, pancreas, adrenal glands are unremarkable. There is atherosclerosis of the aorta without aneurysm. No lymphadenopathy. No free air or free fluid. Prostate gland is enlarged. No abnormal pelv ic masses or fluid collections. IMPRESSION: 1. Extensive bilateral interstitial infiltrates which may represent edema or pneumonia. 2: Moderate pleural effusions. 3: Cholelithiasis. 4: Severe right renal atrophy. Reviewed, dictated and finalized at location B. IMPRESSION: 1. Extensive bilateral interstitial infiltrates which may represent edema or pn [place]. 2: Moderate pleural effusions. 3: Cholelithiasis. 4: Severe right renal atrophy.
--- NOTE | 2024-05-19 12:00 | ECG_ITS ---
Test Date: 2024-05-19 12:02:27 Measurements Intervals [place] Rate: 92 P: 37 VA: 252 QRS: 67 QRSD: 137 T: -31 QT: 390 QTc: 484 Interpretive Statements SINUS RHYTHM WITH FIRST DEGREE AV BLOCK POSSIBLE LEFT ATRIAL ENLARGEMENT [-0.1mV P-WAVE IN V1/V2] INTRAVENTRICULAR CONDUCTION DELAY [130+ ms QRS DURATION] Compared to ECG 03/27/2024 20:47:29 First degree AV block now present Intraventricular conduction delay now present Sinus bradycardia no longer present Ventricular premature complex(es) no longer present Left-axis deviation no longer present Left ventricular hypertrophy no longer present Electronically Signed On 05-19-2024 14:48:45 CDT by Bimal Keating M.D.
[2024-05-19 12:29] LABS: Basophils Percent Auto 0.1 % (0.2-1.2); Eosinophils Percent Auto 0.3 % (0-4.4); Hematocrit 39.7 % (42.0-52.0); Hemoglobin 13.2 g/dL (14.0-18.0); Immature Granulocyte Absolute 0.04 K/mm3 (0.00-0.031); Immature Granulocyte Percent A 0.4 % (0-0.5); Lymphocytes Absolute Auto 0.82 K/mm3 (0.9-3.2); Lymphocytes Percent Auto 7.9 % (18.3-44.2); Mean Corpuscular HGB Conc 33.2 g/dl (32-36); Mean Corpuscular Hemoglobin 30.7 pg (26-34); Mean Corpuscular Volume 92.3 fl (80-100); Mean Platelet Volume 11.9 fl (7.4-10.4); Monocytes Absolute Auto 0.4 K/mm3 (0.1-0.6); Monocytes Percent Auto 3.6 % (2.6-8.5); Neutrophils Absolute Auto 9.1 K/mm3 (1.3-6.7); Neutrophils Percent Auto 87.7 % (45.5-73.1); Platelet Count Result 279 k/mm3 (150-375); Red Cell Distribution Width 13.2 % (11.5-14.5); White Blood Count 10.3 K/mm3 (4.5-10.0)
--- NOTE | 2024-05-19 12:34 | ED.GENADULT ---
HPI - General Adult General Chief complaint: Chest Pain Stated complaint: chest pain Time Seen by Provider: 05/19/24 12:07 History of Present Illness HPI narrative: Patient is an 83-year-old male who presents ER with chest pain. Family reports patient has chronic chest pain and has taken 7 nitroglycerines. Patient cannot provide a history. He is guarding with palpation of the upper abdomen. Patient found to be hypoxic on arrival here para patient does not typically require oxygen and he has been placed on 3 L. no reports of fever or cough. Related Data Home Medications Medication Instructions Recorded Confirmed nitroglycerin 0.4 mg sublingual 0.4 mg sublingual Q5M PRN Chest 10/16/19 05/19/24 tablet (Nitrostat) Pain potassium chloride 10 mEq 10 meq PO DAILY 03/27/24 03/27/24 tablet,extended release furosemide 20 mg tablet 20 mg PO QAM PRN Edema 04/27/24 05/19/24 hydralazine 25 mg tablet 25 mg PO TID 05/19/24 05/19/24 ranolazine 500 mg tablet,extended 1,000 mg PO Q12H 05/19/24 05/19/24 release,12 hr Allergies Allergy/AdvReac Type Severity Reaction Status Date / Time atenolol Allergy Severe Nausea,slow Verified 04/27/24 07:35 heart rate Iodinated Contrast Media Allergy Severe heart Verified 04/27/24 07:35 stopped Review of Systems Review of Systems: ROS unobtainable: Yes unobtainable due to mental status PMFSH Past Medical History Medical History Aortic aneurysm ASHD (arteriosclerotic heart disease) Dementia Essential (primary) hypertension Glaucoma Gout Mixed hyperlipidemia Pitting edema Tinnitus Type 2 diabetes mellitus without complication, without long-term current use of insulin Weakness Surgical History Surgical History H/O heart bypass surgery 6 1996 History of appendectomy S/P coronary artery stent placement (2) 2016 (1) 2013 (2) 2012 (3) 2010 (1) 2009 ( 2) 1996 Family History Family History Mother Family history of dementia Father Family history of heart disease in male family member before age 55 Hyperlipidemia Son Acute myocardial infarction Social History Social History (Reviewed 04/27/24 @ 07:35 by Lauren Quintero [facility]) Social History: He lives with his . He had 2 children and his one son . 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 Surrogate decisionmaker: Meryl, spouse. Code status: Full code. Smoking packs per day: 1 Smoking cigarettes per day: 20.0 Years smoked: 30 Smoking pack-years: 30.00 Smoking status: Former smoker Second hand tobacco smoke exposure: No Additional smoking assessment comments: distant history of smoking Alcohol intake: never Substance use: never Substance use type: does not use Do You Feel Safe in your Home?: Yes Lack of Transportation: No Lack of Food: Never True Current Housing: Decline to Answer Concerned About Future Housing: No Difficulty Paying Gas/Electric Bills: No Difficulty Paying for Meds: No Currently Unemployed: No Education: Decline to Answer Difficulty w/ Childcare or Family Care: No Spiritual care concerns: No Exam Narrative: GENERAL: Chronically ill-appearing, well-nourished, and in mild distress. HEAD: Normocephalic, atraumatic. ENT: Mucous membranes moist. NECK: Supple. CHEST: Bibasilar crackles. No respiratory distress. HEART: Regular rate and rhythm. Normal peripheral pulses. ABDOMEN: Soft, nontender, nondistended. EXTREMITIES: Normal range of motion. No edema. SKIN: Warm, dry, no rash. NEURO: Alert and oriented x1. PSYCH: Normal mood and affect. Course Course Emergency Course: Discussed patient's care with family. Patient is a DNR and they would not want to do a cardiac catheterization or stenting. They would like medical management the patient's sy
[2024-05-19 12:40] LABS: Alanine Aminotransferase 17 U/L (6-50); Alkaline Phosphatase 78 U/L (38-126); Anion Gap 14 mmol/L (4-12); Aspartate Amino Transferase 24 U/L (17-59); Bilirubin,Total 0.7 mg/dL (0.2-1.3); Blood Urea Nitrogen 17 mg/dL (9-20); Calcium 8.8 mg/dL (8.4-10.2); Carbon Dioxide 16 mmol/L (22-30); Chloride 98 mmol/L (98-107); Estimated CRCL calculation 35 ml/min; Estimated Glomerular Filt Rate 49; Glucose 199 mg/dL (65-110); Lipase 66 U/L (23-300); Potassium 4.9 mmol/L (3.4-5.0); Sodium 128 mmol/L (137-145)
[2024-05-19 12:46] LABS: INR 1.1; Prothrombin Time 14.4 Seconds (11.1-14.7)
[2024-05-19] MEDS: MORPHINE SULFATE (*CRX) 4 MG/ML INJ IV PUSH (12:47)
[2024-05-19] MEDS: FUROSEMIDE INJ 40 MG/4 ML VIAL IV PUSH ×2 (14:39→20:51)
[2024-05-19] MEDS: ENOXAPARIN 80 MG/0.8 ML SYRINGE 78 MG SUB-Q (14:39)
--- NOTE | 2024-05-19 14:52 | PC.NURSE ---
added on BNP
[2024-05-19 15:11] LABS: NT Pro B Type Natriuretic Pept 5150 pg/mL (19.9-100)
--- NOTE | 2024-05-19 16:07 | ADMGEN ---
This patient, Tony Menezes Jr., was admitted to IMU Room 232-01 at 1607. Patient/family oriented to hospital policies and general routines including ID bracelet, bed and alarms, visiting hours, pain management, procedures, bathroom and other care routines, personal items, smoking policy, room service/diet, and visiting hours. Information on how to activate the Rapid Response Team has been discussed. Patient/Family are encouraged to report perceived risks to care and to ask questions if they do not understand what they are told or what they should do.
--- NOTE | 2024-05-19 16:45 | PM.IMHP ---
H&P: HPI History of Present Illness Date/Time: 05/19/24 16:15 Chief Complaint: Chest pain. Narrative: This is an 83-year-old male with history of stroke, dementia, coronary artery disease, hypertension, hyperlipidemia, and chronic kidney disease who presented to the emergency department via EMS from home for evaluation of chest pain. Due to the patient's dementia and his current clinical condition he is not able to provide an accurate history and a majority the following from his EMR as well as information provided by his and daughter. He sees Dr. Iraheta at [facility] and was told in October of this year following his last cardiac catheterization that he is not a candidate for any other intervention and his medical management was to be maximized. Today the patient called out for his a little after 11:00 and he told her that he thought he was having a heart attack. He reported chest pain and apparently took 5 nitroglycerin without much improvement. states he was cold and clammy and seemed to be short of breath. EMS was summoned and he was brought in for evaluation. While in the emergency department the patient's family stated that they had talked about hospice recently and stated that they did not want any invasive procedures and wished to keep the patient comfortable. Depending on his course overnight, they may wish to consult with hospice. At the time of my evaluation the patient is somnolent after receiving morphine. He denies chest pain at this time and tells me that he is a little bit hungry. He does endorse shortness of breath. In the ED: Blood pressure was stable on arrival. SpO2 was 87% on room air and he was put on a couple of L nasal cannula. Labs were significant for WBC count of 10.3, hemoglobin 13.2, sodium 128, carbon dioxide 16, anion gap 14, BUN 17, creatinine 1.40, glucose 199, proBNP 5150, troponin 2.820. EKG showed sinus rhythm with first-degree AV block without acute ST deviations. Chest x-ray showed cardiomegaly with pulmonary edema. CT of the abdomen and pelvis showed extensive bilateral interstitial infiltrates which may represent edema or pneumonia, moderate pleural effusions, cholelithiasis, and severe right renal atrophy. He was given aspirin 324 mg, enoxaparin 1 milligram/kilogram, furosemide 40 mg, and morphine 4 mg. He is being admitted in this setting for supportive care and close monitoring. Review of Systems Review of Systems: Unable to obtain given clinical condition. [facility] Past Medical History Medical History (Updated 05/19/24 @ 21:37 by Colleen Love PA-C) Aortic aneurysm Coronary artery disease Dementia Diet-controlled type 2 diabetes mellitus Essential (primary) hypertension Glaucoma Gout Mixed hyperlipidemia Surgical History Surgical History (Updated 05/19/24 @ 21:30 by Colleen Love PA-C) History of appendectomy History of coronary artery bypass graft x 6 (1996) S/P coronary artery stent placement (2) 2016 (1) 2013 (2) 2011 (3) 2010 (1) 2009 ( 2) 1996 Family History Family History Mother Family history of dementia Father Family history of heart disease in male family member before age 55 Hyperlipidemia Son Acute myocardial infarction Social History Social History (Updated 05/19/24 @ 21:31 by Colleen Love PA-C) Social History: Surrogate medical decision maker: Mreyl Clif, spouse. Code status: Do not resuscitate. Smoking packs per day: 1 Smoking cigarettes per day: 20.0 Years smoked: 30 Smoking pack-years: 30.00 Smoking status: Former smoker Second hand tobacco smoke exposure: No Additional smoking assessment comments: distant history of smoking Alcohol intake: never Substance use: never Substance use type: does not use Do You Feel Safe in your Home?: Yes Lack of Transportation: No Lack of Food: Never True Current Housing: I Have Housing Concer
[2024-05-19] MEDS: HYDROcodone/acetaminophen (*CRX) 5-325 MG TABLET 1 TAB PO (19:52)
[2024-05-19] MEDS: RANOLAZINE 500 MG TAB.ER.12H 1000 MG PO (23:14)
[2024-05-20] VITALS (14 sets, daily range): BP systolic 126–147; BP diastolic 71–89; PULSE 49–96; RESP 18–24; TEMP 34.7–35.8; O2SAT 90–98
[2024-05-20] MEDS: MORPHINE SULFATE (*CRX) 2 MG/ML INJ IV PUSH ×2 (00:43→03:40)
[2024-05-20] MEDS: NITROGLYCERIN SL 0.4 MG TABLET SUBLINGUAL (00:49)
--- NOTE | 2024-05-20 00:50 | PC.NURSE ---
Family at bedside, patient is clammy, restless, tachycardic, tachypneic, and diaphoretic. Patient has no complaints of chest pain, but states he feels funny. Axillary temperature is 94.4. Patient given morphine and nitro. Pt resting with eyes closed after administration. Replaced greta hernandez. Discussed with family that patient will likely pass and his comfort is their primary concern.
[2024-05-20 01:07] LABS: Glucose Point of Care 222 mg/dl (65-105)
[2024-05-20] MEDS: ONDANSETRON INJ 4 MG/2 ML VIAL IV PUSH (03:49)
[2024-05-20] MEDS: WATER FOR IRRIGATION, STERILE 1,000 ML BOTTLE 1000 ML (04:43)
--- NOTE | 2024-05-20 06:34 | P.PNCROSS_ITS ---
Event Note Event Note Event Note: I was called about this pt multiple times overnight by the RN stating pt was re quiring additional pain medication and was very restless. Pt has dementia and is a poor historian. His family is at the bedside upon my entry into the room and they have decided that they would like to discuss Hospice as they have been told that there is nothing more that can be done with regards to his heart. Chart was reviewed and I offered to start abx based on the results of the imaging, howev er, they do not want to and they do not want AM labs drawn this AM. They are agreeable to a care coordination consult to discuss possible hospice.
--- NOTE | 2024-05-20 08:44 | PM.IMPN ---
Progress Note: A&P Assessment and Plan (1) Non-ST elevation ID (NSTEMI): Code(s): I21.4 - Non-ST elevation (NSTEMI) myocardial infarction Status: Acute Assessment and Plan: Will continue current treatment. Patient is pain-free now. Cardiology consult order. (2) CHF exacerbation: Code(s): I50.9 - Heart failure, unspecified Status: Acute Assessment and Plan: Good output with Lasix. Patient breathing is better. Will continued with and monitor. (3) Urinary retention: Code(s): R33.9 - Retention of urine, unspecified Status: Acute Assessment and Plan: Stable, patient has good urine output. (4) Gross hematuria: Code(s): R31.0 - Gross hematuria Status: Acute Assessment and Plan: Will monitor. If needed will get Urology consult. (5) Coronary artery disease: Code(s): I25.10 - Atherosclerotic heart disease of [place] coronary artery without angina pectoris Status: Acute Assessment and Plan: Stable on current medications, will continue current treatment cardiology consult out. (6) Diet-controlled type 2 diabetes mellitus: Code(s): E11.9 - Type 2 diabetes mellitus without complications Status: Acute Assessment and Plan: Stable monitor. (7) Dementia: Code(s): F03.90 - Unspecified dementia, unspecified severity, without behavioral disturbance, psychotic disturbance, mood disturbance, and anxiety Status: Acute Assessment and Plan: Stable on current medication. Plan The patient presented to the emergency department for evaluation of chest pain as detailed in HPI. Labs, imaging, EKG, and all reports were personally reviewed. EKG does not show any acute ST segment deviations but his initial troponin was elevated. Last cardiac catheterization was in October at [facility] at which time his platform inspector stated that he is not a candidate for any further intervention and medications were maximized. Continue aspirin, isosorbide, and ranolazine. Discontinue enoxaparin given gross hematuria. Analgesics are available as needed. He has significant pulmonary edema and will be diuresed with monitoring of volume status, renal function, and electrolytes. Urinary catheter was placed as he was retaining over 600 mL of urine however developed gross hematuria thereafter. The Ortiz catheter was causing him quite a bit of pain and discomfort and family asked that be removed. They are considering hospice depending on his course over the next 24 hours but they reiterate that they want him to be comfortable 1st and foremost. Continue bladder scans and monitor I/O. His home medications will be reviewed and resumed as appropriate. Findings and treatment plan were discussed with the patient and his and daughter at bedside. Questions were solicited and answered to satisfaction. The patient's medical management will be taken over by the hospitalist team in a.m. 05/20/2024 Case discussed with in detail. They agreed with current plan of care treatment. Plan is to continue current treatment. Monitor I's and O's. Monitor cardiac stents. Cardiac consult. Subjective Date/time seen: 05/20/24 08:44 Interval history: Patient was seen during the morning rounds today. Patient is feeling slightly better. Decreased shortness of breath. No chest pain. No abdominal pain. No nausea or vomiting. Review of Systems Review of Systems: All ROS are negative except as noted in the history and physical exam. Exam Narrative: General: Ill-appearing elderly gentleman the semi-Franklin position in bed. Weight: 78.4 kg. BMI: 26.3. HEENT: PERRL, EOMI. Sclera anicteric. Oral mucosa moist. Oropharynx not visualized. Neck: Supple. Mild jugular venous distension. Respiratory: Air entry is decreased, few rales at the bases. Cardiovascular: Regular rate and rhythm with occasional ectopy. Gastrointestinal: Abdomen is soft, nontender, and nondistended
--- NOTE | 2024-05-20 10:53 | PM.DS ---
DS: Admitting Diagnosis Discharge Date 05/20/[address]-elevation NJ DS: Discharge Diagnosis Discharge Diagnosis (1) Non-ST elevation [place] (NSTEMI): Code(s): I21.4 - Non-ST elevation (NSTEMI) myocardial infarction Status: Acute Assessment and Plan: Will continue current treatment. Patient is pain-free now. Cardiology consult order. (2) CHF exacerbation: Code(s): I50.9 - Heart failure, unspecified Status: Acute Assessment and Plan: Good output with Lasix. Patient breathing is better. Will continued with and monitor. (3) Urinary retention: Code(s): R33.9 - Retention of urine, unspecified Status: Acute Assessment and Plan: Stable, patient has good urine output. (4) Gross hematuria: Code(s): R31.0 - Gross hematuria Status: Acute Assessment and Plan: Will monitor. If needed will get Urology consult. (5) Coronary artery disease: Code(s): I25.10 - Atherosclerotic heart disease of [place] coronary artery without angina pectoris Status: Acute Assessment and Plan: Stable on current medications, will continue current treatment cardiology consult out. (6) Diet-controlled type 2 diabetes mellitus: Code(s): E11.9 - Type 2 diabetes mellitus without complications Status: Acute Assessment and Plan: Stable monitor. (7) Dementia: Code(s): F03.90 - Unspecified dementia, unspecified severity, without behavioral disturbance, psychotic disturbance, mood disturbance, and anxiety Status: Acute Assessment and Plan: Stable on current medication. Plan The patient presented to the emergency department for evaluation of chest pain as detailed in HPI. Labs, imaging, EKG, and all reports were personally reviewed. EKG does not show any acute ST segment deviations but his initial troponin was elevated. Last cardiac catheterization was in October at [facility] at which time his automatic head sawyer stated that he is not a candidate for any further intervention and medications were maximized. Continue aspirin, isosorbide, and ranolazine. Discontinue enoxaparin given gross hematuria. Analgesics are available as needed. He has significant pulmonary edema and will be diuresed with monitoring of volume status, renal function, and electrolytes. Urinary catheter was placed as he was retaining over 600 mL of urine however developed gross hematuria thereafter. The Ortiz catheter was causing him quite a bit of pain and discomfort and family asked that be removed. They are considering hospice depending on his course over the next 24 hours but they reiterate that they want him to be comfortable 1st and foremost. Continue bladder scans and monitor I/O. His home medications will be reviewed and resumed as appropriate. Findings and treatment plan were discussed with the patient and his and daughter at bedside. Questions were solicited and answered to satisfaction. The patient's medical management will be taken over by the hospitalist team in a.m. 05/20/2024 Case discussed with in detail. They agreed with current plan of care treatment. Plan is to continue current treatment. Monitor I's and O's. Monitor cardiac stents. Cardiac consult. DS: Summary Hospital Course Reason for hospitalization: Non ST-elevation [place] Hospital Course: According to the patient family wishes patient was transferred to hospice care further evaluation treatment Time Spent with Patient Time attestation: Total time spent providing and/or coordinating discharge services: 30 minutes Exam Narrative: General: Ill-appearing elderly gentleman the semi-Franklin position in bed. Weight: 78.4 kg. BMI: 26.3. HEENT: PERRL, EOMI. Sclera anicteric. Oral mucosa moist. Oropharynx not visualized. Neck: Supple. Mild jugular venous distension. Respiratory: Air entry is decreased, few rales at the bases. Cardiovascular: Regular rate and rhythm with occasional ecto
== END 2024-05-20 10:53 | disposition hospice, inpatient (51) | DRG 281 ==
LOC: ANHED 12:13 → ANHIMU 14:55
PROVIDERS: Admitting Provider General Practice; Emergency Provider Emergency Medicine; PCP Nurse Practitioner; Visit Provider Internal Medicine
DX: I21.4 Non-ST elevation (NSTEMI) myocardial infarction (principal); I13.0 Hypertensive heart and chronic kidney disease with heart failure and stage 1 through stage 4 chronic kidney disease, or unspecified chronic kidney disease; E11.22 Type 2 diabetes mellitus with diabetic chronic kidney disease; E78.2 Mixed hyperlipidemia; F03.90 Unspecified dementia, unspecified severity, without behavioral disturbance, psychotic disturbance, mood disturbance, and anxiety; I25.10 Atherosclerotic heart disease of native coronary artery without angina pectoris; I50.9 Heart failure, unspecified; M10.9 Gout, unspecified; N18.9 Chronic kidney disease, unspecified; R31.0 Gross hematuria; R33.9 Retention of urine, unspecified; Z90.49 Acquired absence of other specified parts of digestive tract; Z95.5 Presence of coronary angioplasty implant and graft; Z95.1 Presence of aortocoronary bypass graft; Z87.891 Personal history of nicotine dependence; Z66 Do not resuscitate; Z86.73 Personal history of transient ischemic attack (TIA), and cerebral infarction without residual deficits
CPT/HCPCS: 36415; 71045; 74176; 80053; 82948; 83690; 83880; 84484; 85025; 85610; 85730; 93005; 96372; 96374; 96375; 99291; A9270; G0378; J1650; J1940; J2270; J2405

== ENCOUNTER 2024-05-20 10:54 | HOS | payer OTHER, MEDICARE, SELFPAY ==
[2024-05-20 11:49] VITALS: BMI 25.2
[2024-05-20 12:05] VITALS: PULSE 80; RESP 22
[2024-05-20] MEDS: MORPHINE 50 MG/NS 100ML (*CRX) 50 MG/100 ML BAG IV CONT (12:05)
[2024-05-20 13:00] VITALS: PULSE 82; RESP 18
--- NOTE | 2024-05-20 13:45 | PM.IMHP ---
H&P: HPI History of Present Illness Date/Time: 05/20/24 13:45 Chief Complaint: Uncontrolled restlessness Narrative: 83-year-old male with history of stroke, dementia, coronary artery disease, hypertension, hyperlipidemia, and chronic kidney disease who presented to the emergency department via EMS from home for evaluation of chest pain on 05/19/2024. Due to the patient's dementia and his current clinical condition he is not able to provide an accurate history and a majority the following from his EMR as well as information provided by his and daughter. He sees Dr. Iraheta at [facility] and was told in October of this year following his last cardiac catheterization that he is not a candidate for any other intervention and his medical management was to be maximized. On the day of admission he reported chest pain and apparently took 5 nitroglycerin without much improvement. states he was cold and clammy and seemed to be short of breath. EMS was summoned and he was brought in for evaluation. The patient's family stated that they had talked about hospice recently and stated that they did not want any invasive procedures and wished to keep the patient comfortable. He received 8 mg IV morphine with partial relief of dyspnea, restless, and chest pain since admission. In the ED: pO2 was 87% on room air and he was put on a couple of L nasal cannula. Labs were significant for WBC count of 10.3, hemoglobin 13.2, sodium 128, carbon dioxide 16, anion gap 14, BUN 17, creatinine 1.40, glucose 199, proBNP 5150, troponin 2.820. EKG showed sinus rhythm with first-degree AV block without acute ST deviations. Chest x-ray showed cardiomegaly with pulmonary edema. CT of the abdomen and pelvis showed extensive bilateral interstitial infiltrates which may represent edema or pneumonia, moderate pleural effusions, cholelithiasis, and severe right renal atrophy. He was given aspirin 324 mg, enoxaparin 1 milligram/kilogram, furosemide 40 mg, and morphine 4 mg. was admitted in this setting for supportive care overnight. Today he is hypothermic and restless. Temperature is 95. He did not tolerate the warming blanket. He remains dyspneic, anxious, and restless. This improved some after starting his morphine drip at 1 mg/hr. Review of Systems Review of Systems: ROS unobtainable: Yes unobtainable due to medical condition PMFSH Past Medical History Medical History Aortic aneurysm Coronary artery disease Dementia Diet-controlled type 2 diabetes mellitus Essential (primary) hypertension Glaucoma Gout Mixed hyperlipidemia Surgical History Surgical History History of appendectomy History of coronary artery bypass graft x 6 (1996) S/P coronary artery stent placement (2) 2015 (1) 2012 (2) 2011 (3) 2010 (1) 2009 ( 2) 1996 Family History Family History Mother Family history of dementia Father Family history of heart disease in male family member before age 55 Hyperlipidemia Son Acute myocardial infarction Social History Social History Social History: Surrogate medical decision maker: Meryl Clif, spouse. Code status: Do not resuscitate. Smoking packs per day: 1 Smoking cigarettes per day: 20.0 Years smoked: 30 Smoking pack-years: 30.00 Smoking status: Former smoker Second hand tobacco smoke exposure: No Additional smoking assessment comments: distant history of smoking Alcohol intake: never Substance use: never Substance use type: does not use Do You Feel Safe in your Home?: Yes Lack of Transportation: No Lack of Food: Never True Current Housing: I Have Housing Concerned About Future Housing: No Difficulty Paying Gas/Electric Bills: No Difficulty Paying for Meds: No Currently Unemployed: No Ed
[2024-05-20 14:00] VITALS: PULSE 74; RESP 14
[2024-05-20] MEDS: LORazepam INJ (*CRX) 2 MG/ML VIAL 1 MG IV PUSH (14:16)
[2024-05-20] MEDS: ARTIFICIAL TEARS OPHTH SOLN 15 ML BOTTLE 1 DROP EACH EYE (14:17)
[2024-05-20 15:00] VITALS: PULSE 78; RESP 14
[2024-05-20 16:00] VITALS: PULSE 67; RESP 12
--- NOTE | 2024-05-22 16:15 | P.DN_ITS ---
Discharge Summary Date and Time Date of : 05/20/24 Time of : 16:18 Provider Pronounced By: 2 RNs Name of First RN That Pronounced: Ryann Montana RN Name of Second RN That Pronounced: Norma Lucas RN Probable Cause of Probable Cause of : NSTEMI due to CAD with associated pulmonary edema and acute hypoxic respiratory failure Summary Hospital Course: Admitted to inpatient hospice service for control of dyspnea, discomfort, and restlessness. Medications were titrated to comfort. Mr. Menezes peacefully with his family at [facility]. Additional Data Confirmation of as documented by pronouncing clinician: Pupillary Reflex, Palpable Pulses, Response to Stimuli, Heart Tones and Breath Sounds Name of Provider Notified: Virginie Time Provider Notified: 16:21 Provider Requests Autopsy: No Family Requests Autopsy: No Medical Translator Notified: Yes Date [facility] Notified of : 05/20/24 Time [facility] Notified of : 16:37
== END 2024-05-20 16:18 | disposition expired | DRG 951 ==
PROVIDERS: Admitting Provider Internal Medicine; PCP Nurse Practitioner; Visit Provider Internal Medicine
DX: Z51.5 Encounter for palliative care (principal); I21.4 Non-ST elevation (NSTEMI) myocardial infarction; J96.01 Acute respiratory failure with hypoxia; I13.0 Hypertensive heart and chronic kidney disease with heart failure and stage 1 through stage 4 chronic kidney disease, or unspecified chronic kidney disease; I50.9 Heart failure, unspecified; I25.10 Atherosclerotic heart disease of native coronary artery without angina pectoris; E78.5 Hyperlipidemia, unspecified; E78.2 Mixed hyperlipidemia; E11.22 Type 2 diabetes mellitus with diabetic chronic kidney disease; F03.90 Unspecified dementia, unspecified severity, without behavioral disturbance, psychotic disturbance, mood disturbance, and anxiety; N18.9 Chronic kidney disease, unspecified; M10.9 Gout, unspecified; Z90.49 Acquired absence of other specified parts of digestive tract; Z95.1 Presence of aortocoronary bypass graft; Z95.5 Presence of coronary angioplasty implant and graft; Z66 Do not resuscitate; Z87.891 Personal history of nicotine dependence; Z86.73 Personal history of transient ischemic attack (TIA), and cerebral infarction without residual deficits
CPT/HCPCS: A9270; J2060; J2270